=== PATIENT | male | born 1960 | race Caucasian/White ===

== ENCOUNTER 2021-01-27 19:42 | Inpatient (IN) | payer OTHER, MEDICAID, SELFPAY ==
[2021-01-27] VITALS (7 sets, daily range): BP systolic 73–95; BP diastolic 42–56; PULSE 77–83; RESP 16–22; TEMP 36.7–38.8; O2SAT 95–98; BMI 27.1
--- NOTE | ~2021-01-27 | XR_ITS ---
EXAMINATION: XR CALCANEUS, LEFT CLINICAL INFORMATION: Nonhealing COMPARISON: None TECHNIQUE: Lateral and axial views of the left calcaneus were obtained. FINDINGS: Extensive gas is present in the soft tissues and there appears to be an area of ulceration on the inferior heel with marked thinning of the skin and subcutaneous tissues. There is ill-defined loss of cortical bone present in at least one area present (see oropeza images). The overall area measures about 1.8 x 2.5 x 1.6 cm. Vascular calcifications are present. XR/XR calcaneus LT min 2V IMPRESSION: Soft tissue gas with area of ulceration and area of cortical bony destruction with large osteopenic region worrisome for osteomyelitis
--- NOTE | ~2021-01-27 | XR_ITS ---
EXAMINATION: XR CHEST CLINICAL INFORMATION: Hypertension COMPARISON: None TECHNIQUE: Frontal view of the chest was obtained. FINDINGS: Heart size upper limits of normal. No gross CHF. Mild streaky perihilar densities on the right with some more linear atelectasis in the left mid lung. No gross consolidations or pleural effusions. XR/XR chest 1V IMPRESSION: No acute intrathoracic disease. Some mild perihilar density on the right with left midlung atelectasis
--- NOTE | 2021-01-27 19:58 | ED_ITS ---
HPI - General Adult General Chief complaint: Altered Mental Status Stated complaint: fever Time Seen by Provider: 01/27/21 19:54 Source: patient and RN notes reviewed Mode of arrival: EMS Limitations: no limitations History of Present Illness HPI narrative: Patient diabetic with left heel chronic wound,, with history of atrial fibrillation on Eliquis cardiomyopathy hypertension [facility] for temperature of 101.4 degrees with increased pain in the left heel area where patient has chronic wound also feels nauseated week admitted [facility] on [facility]/23 had a wound VAC on his left heel today patient had debridement and wound VAC was removed. For last few days per nurse patient been more weak and lethargic and more confused always has chronic left leg swelling patient is not on any antibiotics Related Data Home Medications Medication Instructions Recorded Confirmed Lactobacillus rhamnosus GG 1 cap PO DAILY 01/28/21 01/28/21 [Culturelle] amiodarone 1 tab PO DAILY 01/28/21 01/28/21 apixaban [Eliquis] 5 mg PO BID 01/28/21 01/28/21 ascorbic acid (vitamin C) [Vitamin 500 mg PO DAILY 01/28/21 01/28/21 C] carvedilol 1 tab PO BID 01/28/21 01/28/21 carvedilol [Coreg] 3.125 mg PO BID 01/28/21 01/28/21 ferrous gluconate 324 mg PO DAILY 01/28/21 01/28/21 insulin glargine [Lantus Solostar 10 unit SUBCUT BEDTIME 01/28/21 01/28/21 U-100 Insulin] insulin lispro [Humalog U-100 4 unit SUBCUT TID 01/28/21 01/28/21 Insulin] magnesium oxide 400 mg PO DAILY 01/28/21 01/28/21 oxycodone 5 mg PO Q6H PRN 01/28/21 01/28/21 polyethylene glycol 3350 [Miralax] 17 g PO DAILY 01/28/21 01/28/21 Allergies Allergy/AdvReac Type Severity Reaction Status Date / Time No Known Allergies Allergy Verified 01/27/21 19:59 Review of Systems Review of Systems: Constitutional : No Weight loss, +Fever, No Chills ENT/Mouth : No sore throat, No Rhinorrhea Eyes: No Eye Pain, No Swelling Cardiovascular : No Chest Pain, no palpitations Respiratory : No Cough, No Sputum, no shortness of breath Gastrointestinal : + Nausea, No Vomiting, No Diarrhea, No abdominal Pain, no black stools Genitourinary : No Dysuria, No Urinary Frequency Musculoskeletal : No joint pain, No Myalgias, No Joint Swelling Skin : No Skin Lesions, No rash Neuro : + Weakness, No Numbness, No Dizziness, No Headache Psych : No Anxiety/Panic, No Depression Heme/Lymph: No Bruising, No Lymphadenopathy Endocrine : No Polyuria, No Polydipsia All other systems reviewed and are negative [facility] Past Medical History Medical History Atrial fibrillation Cardiomyopathy Chronic wound of extremity Diabetic foot ulcer Hyperlipidemia Hypertension Iron deficiency anemia MRSA pneumonia Pleural empyema Tourette disease Surgical History H/O chest tube placement History of amputation of right foot through metatarsal bone Social History Social History Alcohol intake: unknown Patient Tobacco Use Status: Tobacco use Unknown Use of substances other than those prescribed or required for medical reasons: Unknown Advance Directives: No Advance Directives Information Provided: Yes Physical Exam Vital Signs: Vital Signs: Last Vital Signs Temp 99 F 01/28/21 00:00 Pulse 87 01/28/21 00:14 Resp 14 01/28/21 00:00 BP 84/48 L 01/28/21 00:14 Pulse Ox 97 01/28/21 00:00 Body Mass Index 29.9 Appearance: Alert. Oriented X3. No acute distress. Eyes: PERRLA, No Nystagmus ENT: Pharynx normal. Oral Mucosa moist Neck: Normal inspection. Neck supple. CVS: Normal heart rate and rhythm. Pulses normal. Respiratory: No respiratory distress. Equal air entry bilateral, no wheezing/rales/rhonchi Abdomen: Soft and nontender. Bowel sounds are present, no mass palpable, no CVA tenderness Skin: Skin warm and dry. Normal skin color. Normal skin turgor. Extremities: Swollen left leg with warmth, healing wound at the heel of left foot with fresh gauze no pus discharge granulation tissue present, No calf tenderness Neuro: Oriented X 3. No motor deficit. No sensory deficit.No cerebellar signs , cranial nerves II-XII intact Medical Decision Making MDM Narrative Medical decision making narrative: Patient with chronic left heel necrotic cellulitis treated medically and surgical debridement [facility] for increased discharge and confusion workup showed leukocytosis at x-ray of the left heel showed erosion of the calcaneum bone likely patient has osteomyelitis previous x-ray with done on 10/23 was negative for bony erosion patient's blood pressure dropped to 84/50 received IV fluids more than 30 cc/kilogram broad- spectrum antibiotics vancomycin Zosyn started will give him mitral drain with blood pressure continues to be low will start him on dopamine drip and admit to ICU Lab Data Lab results reviewed: Yes I reviewed the patient's lab results. Result diagrams: 01/28/21 00:31 01/28/21 00:31 Labs: Lab Results 01/27/21 01/27/21 01/27/21 Range/Units 20:20 20:20 20:20 WBC 23.9 H (4.8-10.8) X10*3/uL RBC 2.89 L (4.60-5.80) X10*6/uL Hgb 7.6 L (14.0-18.0) g/dl Hct 22.2 L (42-52) % MCV 76.8 L (80-98) fL MCH 26.3 L (27.0-33.0) pg MCHC 34.2 (31.0-36.0) g/dl RDW 14.3 (11.0-16.0) % Plt Count 219 (160-400) X10*3/uL MPV 9.1 L (9.4-12.4) fL Immature Gran % (Auto) 1.5 H (0.0-0.4) % Neut % (Auto) 90.7 H (45-73) % Lymph % (Auto) 1.5 L (20-40) % [place] % (Auto) 6.2 (2-11) % Eos % (Auto) 0.0 (0-4) % Baso % (Auto) 0.1 (0-2) % Lymph # (Auto) 0.4 L (1.2-4.9) X10*3/uL [place] # (Auto) 1.5 H (0.1-1.2) X10*3/uL Eos # (Auto) 0.0 (0.0-0.4) X10*3/uL Baso # (Auto) 0.0 (0.0-0.2) X10*3/uL Abs Immat Gran (auto) 0.36 H (0.00-0.03) X10*3/uL Absolute Neuts (auto) 21.7 H (2.0-8.3) X10*3/uL Absolute Nucleated RBC 0.000 (0.0-0.012) X10*3/uL Nucleated RBC % (auto) 0.0 (0.0-0.2) /100WBC Smear Tech's Comments VERIFIED Sodium 121 L (135-145) mmol/L Potassium 5.0 (3.3-5.1) mmol/L Chloride 92 L (96-108) mmol/L Carbon Dioxide 20 L (22-29) mmol/L Anion Gap 14 (12-20) BUN 45 H (9-16) mg/dL Creatinine 1.94 H (0.5-1.4) mg/dL Estim Creat Clear Calc 45.5 Estimated GFR 36 POC Glucose (60-115) mg/dL Random Glucose 476 H* (60-115) mg/dL Lactic Acid 1.6 (0.5-2.0) mmol/L Calcium 7.8 L (8.4-10.2) mg/dL Total Bilirubin 0.8 (0.0-1.0) mg/dL Direct Bilirubin 0.6 H (0.0-0.5) mg/dL AST 16 (5-37) U/L ALT 17 (0-40) U/L Alkaline Phosphatase 345 H (39-117) U/L Total Protein 4.9 L (6.5-8.0) g/dL Albumin 2.6 L (3.5-5.0) g/dL Urine Color Urine Appearance Urine pH (5.0-8.0) Ur Specific [place] (1.005-1.025) Urine Protein (NEG-TRACE) MG/DL Urine Glucose (UA) (NEG) MG/DL Urine Ketones (NEG) MG/DL Urine Blood (NEG) Urine Nitrite (NEG) Ur Leukocyte Esterase (NEG) Urine RBC (0) /HPF Urine WBC (0-4) /HPF Ur Squamous Epith Cells /LPF Amorphous Sediment /LPF Urine Bacteria /LPF COVID-19 ([facility]) (Negative) COVID-19 Clin Com 01/27/21 01/27/21 01/27/21 Range/Units 20:20 21:28 22:41 WBC (4.8-10.8) X10*3/uL RBC (4.60-5.80) X10*6/uL Hgb (14.0-18.0) g/dl Hct (42-52) % MCV (80-98) fL MCH (27.0-33.0) pg MCHC (31.0-36.0) g/dl RDW (11.0-16.0) % Plt Count (160-400) X10*3/uL MPV (9.4-12.4) fL Immature Gran % (Auto) (0.0-0.4) % Neut % (Auto) (45-73) % Lymph % (Auto) (20-40) % [place] % (Auto) (2-11) % Eos % (Auto) (0-4) % Baso % (Auto) (0-2) % Lymph # (Auto) (1.2-4.9) X10*3/uL [place] # (Auto) (0.1-1.2) X10*3/uL Eos # (Auto) (0.0-0.4) X10*3/uL Baso # (Auto) (0.0-0.2) X10*3/uL Abs Immat Gran (auto) (0.00-0.03) X10*3/uL Absolute Neuts (auto) (2.0-8.3) X10*3/uL Absolute Nucleated RBC (0.0-0.012) X10*3/uL Nucleated RBC % (auto) (0.0-0.2) /100WBC Smear Tech's Comments Sodium (135-145) mmol/L Potassium (3.3-5.1) mmol/L Chloride (96-108) mmol/L Carbon Dioxide (22-29) mmol/L Anion Gap (12-20) BUN (9-16) mg/dL Creatinine (0.5-1.4) mg/dL Estim Creat Clear Calc Estimated GFR POC Glucose 371 H* (60-115) mg/dL Random Glucose (60-115) mg/dL Lactic Acid (0.5-2.0) mmol/L Calcium (8.4-10.2) mg/dL Total Bilirubin (0.0-1.0) mg/dL Direct Bilirubin (0.0-0.5) mg/dL AST (5-37) U/L ALT (0-40) U/L Alkaline Phosphatase (39-117) U/L Total Protein (6.5-8.0) g/dL Albumin (3.5-5.0) g/dL Urine Color YELLOW Urine Appearance CLEAR Urine pH 5.5 (5.0-8.0) Ur Specific [place] 1.020 (1.005-1.025) Urine Protein 1+ H (NEG-TRACE) MG/DL Urine Glucose (UA) >=1000 H (NEG) MG/DL Urine Ketones 5 (NEG) MG/DL Urine Blood TRACE (NEG) Urine Nitrite NEG (NEG) Ur Leukocyte Esterase NEG (NEG) Urine RBC 1-4 (0) /HPF Urine WBC 0 (0-4) /HPF Ur Squamous Epith Cells 2+ /LPF Amorphous Sediment 2+ /LPF Urine Bacteria 1+ /LPF COVID-19 ([facility]) Negative (Negative) COVID-19 Clin Com See Note Critical Care Time Critical Care Time Critical Care Time: Yes Total Critical Care Time: 60 Attestation: I spent 60 minutes of critical care, with interventions, assessments, speaking to patient, consultants, and family. Discharge Plan Discharge Clinical Impression: Acute osteomyelitis of left ankle or foot, Sepsis associated hypotension Diabetes mellitus Qualifiers: Diabetes mellitus type: type 2 Diabetes mellitus usp insulin use: with remote computer terminal operator use Diabetes mellitus complication status: with hyperglycemia Qualifie d Code(s): E11.65 - Type 2 diabetes mellitus with hyperglycemia Patient Disposition: Admitted As Inpatient Interventions: Admission Worksheet (ED) Last Done: 01/28/21 00:59
--- NOTE | 2021-01-27 20:01 | ECG_ITS ---
Test Reason : WEAKNESS Blood Pressure : / mmHG Vent. Rate : 079 BPM Atrial Rate : 079 BPM P-R Int : 194 ms QRS Dur : 086 ms QT Int : 374 ms P-R-T Axes : 041 -47 016 degrees QTc Int : 428 ms Normal sinus rhythm Left axis deviation Low voltage QRS Inferior infarct , age undetermined Possible Anterolateral infarct , age undetermined Abnormal ECG No previous ECGs available Referred By: Margarito Romano Electronically Signed By:MICHAEL SALAS
[2021-01-27 20:32] LABS: Basophils Percent Auto 0.1 % (0-2); Hematocrit 22.2 % (42-52); Hemoglobin 7.6 g/dl (14.0-18.0); Imm Gran Abs Auto 0.36 X10*3/uL (0.00-0.03); Imm Gran Pct Auto 1.5 % (0.0-0.4); Lymphocytes Absolute Auto 0.4 X10*3/uL (1.2-4.9); Lymphocytes Percent Auto 1.5 % (20-40); MANUAL DIFF FLAG SCAN; Mean Corpuscular HGB Conc 34.2 g/dl (31.0-36.0); Mean Corpuscular Hemoglobin 26.3 pg (27.0-33.0); Mean Corpuscular Volume 76.8 fL (80-98); Mean Platelet Volume 9.1 fL (9.4-12.4); Monocytes Absolute Auto 1.5 X10*3/uL (0.1-1.2); Monocytes Percent Auto 6.2 % (2-11); Neutrophils Absolute Auto 21.7 X10*3/uL (2.0-8.3); Neutrophils Percent Auto 90.7 % (45-73); Platelet Count 219 X10*3/uL (160-400); Red Blood Count 2.89 X10*6/uL (4.60-5.80); Red Cell Distribution Width 14.3 % (11.0-16.0); SCAN SMEAR FLAG 1; White Blood Count 23.9 X10*3/uL (4.8-10.8)
[2021-01-27] MEDS: vancomycin HCL 1,000 MG in 0.9 % Sodium Chloride 250 ML 270 MG IV (20:45)
[2021-01-27 20:46] LABS: Lactic Acid 1.6 mmol/L (0.5-2.0)
[2021-01-27 20:48] LABS: COVID-19 Test Negative (Negative)
[2021-01-27 20:57] LABS: SLIDE REVIEW VERIFIED
[2021-01-27 20:58] LABS: Glucose Random 476 mg/dL (60-115)
[2021-01-27 21:01] LABS: Alanine Aminotransferase 17 U/L (0-40); Albumin Level 2.6 g/dL (3.5-5.0); Alkaline Phosphatase 345 U/L (39-117); Anion Gap 14 (12-20); Aspartate Amino Transferase 16 U/L (5-37); Bilirubin Direct 0.6 mg/dL (0.0-0.5); Bilirubin Total 0.8 mg/dL (0.0-1.0); Blood Urea Nitrogen 45 mg/dL (9-16); Calcium 7.8 mg/dL (8.4-10.2); Carbon Dioxide 20 mmol/L (22-29); Chloride 92 mmol/L (96-108); Creatinine Clr Calc Pharmacy 45.5; Estimated Glomerular Filt Rate 36; Sodium 121 mmol/L (135-145); Total Protein 4.9 g/dL (6.5-8.0)
[2021-01-27] MEDS: Piperacillin Sodium/Tazobactam 3.375 GM in 0.9 % Sodium Chloride 50 ML IV (21:22)
[2021-01-27] MEDS: 0.9 % Sodium Chloride 1,000 ML 999 ML IVCONT ×3 (21:22→23:12)
[2021-01-27] MEDS: Insulin Lispro 100 UNIT/ML 3 ML VIAL 14 UNIT SUBCUT (21:30)
[2021-01-27 21:45] LABS: Glucose Urine UA >=1000 MG/DL (NEG); Leukocyte Esterase Urine NEG (NEG); Nitrite Urine NEG (NEG); PH 5.5 (5.0-8.0); Urine Blood TRACE (NEG); Urine Ketones 5 MG/DL (NEG); Urine Protein 1+ MG/DL (NEG-TRACE)
[2021-01-27 21:46] LABS: Appearance Urine CLEAR; Color Urine YELLOW
[2021-01-27 21:51] LABS: Amorphous Sediment Urine 2+ /LPF; Bacteria Urine 1+ /LPF; Squamous Epithelial Cell Urine 2+ /LPF; WBC Urine 0 /HPF (0-4)
[2021-01-27 22:48] LABS: Glucose, Whole Blood 371 mg/dL (60-115)
--- NOTE | 2021-01-27 22:58 | PC.NURSE ---
LATE ENTRY FOR 2239, FIRST CONTACT WITH PATIENT. ALERT, PALE, PERSISTENT LOW BP BROUGHT TO DOC ANWER'S ATTENTION. ADDITIONAL IV FLUIDS ORDRED. A FIB ON MONITOR ONCE APPLIED. WARM TO TOUCH, UNLABORED RESP.
[2021-01-27] MEDS: Midodrine HCl 10 MG TABLET PO (23:42)
[2021-01-28] VITALS (31 sets, daily range): BP systolic 84–123; BP diastolic 44–73; PULSE 75–134; RESP 11–21; TEMP 36.4–37.8; O2SAT 91–100; BMI 29.9; BMI 29.4
[2021-01-28] MEDS: DOPamine HCL/D5W 400 MG/250 ML PLAST..BAG 18.8 MG IVCONT (00:14)
--- NOTE | 2021-01-28 00:15 | PC.NURSE ---
CONFIRMING MEDICATION WITH JACE AGUILLON, PATIENTS WEIGHT IS 100.3 MEASURED PRIOR TO THE START OF MEDICATION. PATIENT ONLY HAS PERIPHERAL ACCESS AT THIS TIME ED PROVIDER IS AWARE, INSTRUCTED TO START MEDICATION.
--- NOTE | 2021-01-28 00:21 | PM.CCHP ---
History of Present Illness Date of Service: 01/28/21 Chief Complaint: hypotension Patient is a 60-year-old male with past medical history out of DM 2 on insulin, AFib on Eliquis, HTN, cardiomyopathy, tourette's syndrome (sniffs), iron def anemia, HLD and chronic left heel ulcer with osteomyelitis and chronic left leg swelling who was BIBA to the ED last night from [facility] when he was found to be febrile, increasing weakness and lethargy, nausea and increased pain in his left heel. According to ED the records, patient states he had left heel debridement today and the wound VAC was removed. According to records faxed from [facility], this ulcer began in Oct 2020. More records which were faxed to us show on 01/17/21, he was evaluated at the [facility] and was found to be hyponatremic at 128 and placed on a 1800cc fluid restriction for 1 week. On that same note, more labs were listed, they are as follows; WBC was 8.4, hemoglobin was 9.2 and hematocrit was 28.3, K 5.5, BUN 30, Cr 1.28, total bili 0.3, AST 7, ALT 9, Alk Phos 142, albumin 2.9, sed rate 32, c react 1.56, ALT Upon arrival in the ED, the patient's vital signs were notable for BP of 84/50, febrile at 102F, however his HR was 80, RR 16 and he was satting at 95% on room air. His labs are notable for a white count of 23.9, hemoglobin 7.6, hematocrit 22.2, Na 121, Cl 92, bicarb 20, BUN 45, Cr 1.94, glucose 476, lactic acid 1.6, Ca 7.8, direct bili 0.6, alk phos 345, total protein 4.9, albumin 2.6. UA showed 1+ protein and glucose. COVID negative. Left calcaneus x-ray showed soft tissue gas with area of ulceration an area of cortical bony destruction with large osteopenic region worrisome for osteomyelitis. Chest x-ray showed no acute process, some mild perihilar density on the right with left mid lung atelectasis. Showed normal sinus rhythm at 79 BPM. Blood cultures are pending. In the ED, the pt was given 3L NS, vanco, zosyn, 10mg midodrine, 14U humalog. Upon my exam, pt was visibly shaking from chills, states he is in pain and missed his oxy dose, last dose was 9 hours ago at 3pm. Notable for left heel ulcer and pedal edema left 2+, right 1+ as well as left leg swelling. Lungs CTA. Patient already placed on dopamine drip and systolic blood pressure is up to 98. Review of Systems Review of Systems: Yes all other systems are reviewed and are negative [facility] Past Medical History Medical History (Updated 01/28/21 @ 01:59 by Tsering Wang PA-C) Atrial fibrillation Cardiomyopathy Chronic wound of extremity Diabetic foot ulcer Hyperlipidemia Hypertension Iron deficiency anemia MRSA pneumonia Pleural empyema Tourette disease Surgical History Surgical History H/O chest tube placement History of amputation of right foot through metatarsal bone Social History Social History Alcohol intake: unknown Patient Tobacco Use Status: Tobacco use Unknown Use of substances other than those prescribed or required for medical reasons: Unknown Advance Directives: No Advance Directives Information Provided: Yes Meds Allergies Allergy/AdvReac Type Severity Reaction Status Date / Time No Known Allergies Allergy Verified 01/27/21 19:59 Active Medications: Current Medications Generic Name Dose Route Start Last Admin Trade Name Freq PRN Reason Stop Dose Admin Dopamine HCl/Dextrose 400 mg in 250 mls @ 0 mls/hr 01/27/21 23:45 01/28/21 00:14 IVCONT 5.53 mcg/kg/min .Q0M AKILA 18.8 mls/hr Administration Protocol Per Protocol Pharmacy Consult 1 each 01/27/21 20:21 Consult Rx Vancomycin Dosing MISCELLANE DAILY PRN Consult order Home Medications Medication Instructions Recorded Confirmed Last Taken Type Lactobacillus rhamnosus GG 1 cap PO DAILY 01/28/21 01/28/21 01/27/21 History [Culturelle] amiodarone 1 tab PO DAILY 01/28/21 01/28/21 01/27/21 History apixaban [Eliquis] 5 mg PO BID 01/28/21 01/28/21 01/27/21 History ascorbic acid (vitamin C) [Vitamin 500 mg PO DAILY 01/28/21 01/28/21 01/27/21 History C] carvedilol 1 tab PO BID 01/28/21 01/28/21 01/27/21 History carvedilol [Coreg] 3.125 mg PO BID 01/28/21 01/28/21 01/27/21 History ferrous gluconate 324 mg PO DAILY 01/28/21 01/28/21 01/28/21 History insulin glargine [Lantus Solostar 10 unit SUBCUT BEDTIME 01/28/21 01/28/21 01/28/21 History U-100 Insulin] insulin lispro [Humalog U-100 4 unit SUBCUT TID 01/28/21 01/28/21 Unknown History Insulin] magnesium oxide 400 mg PO DAILY 01/28/21 01/28/21 01/27/21 History oxycodone 5 mg PO Q6H PRN 01/28/21 01/28/21 01/27/21 History polyethylene glycol 3350 [Miralax] 17 g PO DAILY 01/28/21 01/28/21 01/27/21 History Physical Exam Vital Signs: Vital Signs: Last Vital Signs Temp 99 F 01/28/21 00:00 Pulse 87 01/28/21 00:14 Resp 14 01/28/21 00:00 BP 84/48 L 01/28/21 00:14 Pulse Ox 97 01/28/21 00:00 Body Mass Index 29.9 Const: General: cooperative, healthy appearing, comfortable, no acute distress and well developed Orientation/consciousness: patient oriented x3 Limitations: no limitations HENMT: Other: port wine stain on left eyelid and left forehead Head: Yes normal to inspection Eyes: General: appearance normal, both eyes and all related structures Neck: Neck: Yes normal visual inspection and Yes full ROM Resp: Effort & Inspection: normal respiratory effort and able to speak in complete sentences Auscultation: clear to auscultation bilaterally Cardio: Rate: regular rate Rhythm: regular rhythm Heart sounds: normal S1 and S2 GI: Inspection: Yes normal to inspection Palpation (GI): Soft to palpation and nontender Skin: General skin exam: no rashes or lesions noted Neuro: General: patient oriented x3 Extrem: General: Yes edema (left leg) and Yes pedal edema (Right 1+, left 2+) Right lower extremity: foot Left lower extremity: foot (Healing wound at base of heal, granulation tissue present) Ankle/foot/toe images: 1. status post amputation 1-5 Results Labs CBC and Chem 7: 01/28/21 00:31 01/28/21 00:31 Labs: Laboratory Results - last 24 hr 01/27/21 01/27/21 01/27/21 20:20 20:20 20:20 MCV 76.8 L MCH 26.3 L MCHC 34.2 RDW 14.3 Plt Count 219 MPV 9.1 L Immature Gran % (Auto) 1.5 H Neut % (Auto) 90.7 H Lymph % (Auto) 1.5 L [place] % (Auto) 6.2 Eos % (Auto) 0.0 Baso % (Auto) 0.1 Lymph # (Auto) 0.4 L [place] # (Auto) 1.5 H Eos # (Auto) 0.0 Baso # (Auto) 0.0 Abs Immat Gran (auto) 0.36 H Absolute Neuts (auto) 21.7 H Absolute Nucleated RBC 0.000 Nucleated RBC % (auto) 0.0 Smear Tech's Comments VERIFIED Anion Gap 14 Estim Creat Clear Calc 45.5 Estimated GFR 36 POC Glucose Random Glucose 476 H* Lactic Acid 1.6 Calcium 7.8 L Total Bilirubin 0.8 Direct Bilirubin 0.6 H AST 16 ALT 17 Alkaline Phosphatase 345 H Total Protein 4.9 L Albumin 2.6 L Urine Color Urine Appearance Urine pH Ur Specific [place] Urine Protein Urine Glucose (UA) Urine Ketones Urine Blood Urine Nitrite Ur Leukocyte Esterase Urine RBC Urine WBC Ur Squamous Epith Cells Amorphous Sediment Urine Bacteria COVID-19 ([facility]) COVID-19 Clin Com 01/27/21 01/27/21 01/27/21 20:20 21:28 22:41 MCV MCH MCHC RDW Plt Count MPV Immature Gran % (Auto) Neut % (Auto) Lymph % (Auto) [place] % (Auto) Eos % (Auto) Baso % (Auto) Lymph # (Auto) [place] # (Auto) Eos # (Auto) Baso # (Auto) Abs Immat Gran (auto) Absolute Neuts (auto) Absolute Nucleated RBC Nucleated RBC % (auto) Smear Tech's Comments Anion Gap Estim Creat Clear Calc Estimated GFR POC Glucose 371 H* Random Glucose Lactic Acid Calcium Total Bilirubin Direct Bilirubin AST ALT Alkaline Phosphatase Total Protein Albumin Urine Color YELLOW Urine Appearance CLEAR Urine pH 5.5 Ur Specific [place] 1.020 Urine Protein 1+ H Urine Glucose (UA) >=1000 H Urine Ketones 5 Urine Blood TRACE Urine Nitrite NEG Ur Leukocyte Esterase NEG Urine RBC 1-4 Urine WBC 0 Ur Squamous Epith Cells 2+ Amorphous Sediment 2+ Urine Bacteria 1+ COVID-19 ([facility]A) Negative COVID-19 Clin Com See Note Imaging Radiologist's Impressions: Impressions Calcaneus X-Ray 01/27/21 19:59 IMPRESSION: Soft tissue gas with area of ulceration and area of cortical bony destruction with large osteopenic region worrisome for osteomyelitis Chest X-Ray 01/27/21 20:01 IMPRESSION: No acute intrathoracic disease. Some mild perihilar density on the right with left midlung atelectasis Assessment and Plan (1) Acute osteomyelitis of left ankle or foot: Status: Acute wound consult placed, wound cx ordered,, pt on vanco and zosyn (2) Sepsis associated hypotension: Status: Acute dopamine drip, monitor vital signs (3) Diabetes mellitus: Qualifiers: Diabetes mellitus complication status: with hyperglycemia Diabetes mellitus ocean transportation intermediary insulin use: with senior care use Diabetes mellitus type: type 2 Qualified Code(s): E11.65 - Type 2 diabetes mellitus with hyperglycemia; Z79.4 - ferry terminal agent (current) use of insulin Status: Acute 10U Lantus @bedtime and Humalog, sliding scale. QIDACHS POC's ordered (4) Iron deficiency anemia: Status: Inactive monitor H&H, currently stable, patient is on oral iron at home (5) Hyponatremia: Status: Acute After 3L NS, Na went from 121 to 123, monitor
--- NOTE | 2021-01-28 00:22 | PC.NURSE ---
Primary nurse has not observed Afib since patient arrived in the ER as verified by EKG and bedside monitor. Patient is alert and oriented x 3 without chills and temperature of 99.0 rectal. Patient was not tachycardic upon arrival and continues to not be tachycardic with heart rate in the 80's the entire time. Dopamine administered per emar in peripheral IV and verified pump setting with Aubrey Romano prior to start of IV. Patient weight checked prior to start of medication. Patient weight 100.3 kg.
[2021-01-28 00:40] LABS: Venous Blood Gas Refer to POC result
[2021-01-28 00:41] LABS: VBG HCO3 21 mmol/L (22-26); VBG pCO2 38 mmHg; VBG pH 7.34 (7.32-7.43); VBG pO2 49 mmHg
[2021-01-28 00:42] LABS: Hematocrit 23.5 % (42-52); Hemoglobin 7.9 g/dl (14.0-18.0); Mean Corpuscular HGB Conc 33.6 g/dl (31.0-36.0); Mean Corpuscular Hemoglobin 25.9 pg (27.0-33.0); Platelet Count 219 X10*3/uL (160-400); Red Blood Count 3.05 X10*6/uL (4.60-5.80); Red Cell Distribution Width 14.3 % (11.0-16.0); White Blood Count 23.1 X10*3/uL (4.8-10.8)
[2021-01-28 00:46] LABS: Prothrombin Time 24.4 SEC (10.8-13.0)
[2021-01-28 00:48] LABS: Partial Thromboplastin Time 34.1 SEC (24.1-38.0)
--- NOTE | 2021-01-28 00:57 | PC.NURSE ---
This bond underwriter spoke with Rn at alf assigned to patient. Per her report the patient received Oxycodone at 1800 tonight prior to his arrival in ED.
[2021-01-28 01:08] LABS: B Type Natriuretic Peptide 1429 pg/mL (<100)
[2021-01-28 01:09] LABS: Alanine Aminotransferase 18 U/L (0-40); Albumin Level 2.8 g/dL (3.5-5.0); Alkaline Phosphatase 343 U/L (39-117); Anion Gap 13 (12-20); Aspartate Amino Transferase 15 U/L (5-37); Bilirubin Total 0.9 mg/dL (0.0-1.0); Blood Urea Nitrogen 45 mg/dL (9-16); Calcium 8.4 mg/dL (8.4-10.2); Carbon Dioxide 21 mmol/L (22-29); Chloride 94 mmol/L (96-108); Creatinine Clr Calc Pharmacy 45.7; Estimated Glomerular Filt Rate 32; Glucose Random 313 mg/dL (60-115); Magnesium 1.6 mg/dL (1.6-2.6); Phosphorus 2.1 mg/dL (2.7-4.5); Potassium 4.7 mmol/L (3.3-5.1); Sodium 123 mmol/L (135-145); Total Protein 5.8 g/dL (6.5-8.0)
[2021-01-28 01:10] LABS: Band Neutrophils Percent 9 % (3-5); Lymphocytes Absolute Manual 0.5 X10*3/uL (0.6-4.8); Lymphocytes Percent Manual 2 % (20-40); Metamyelocytes Absolute 0.2 X10*3/uL; Metamyelocytes Percent 1 %; Monocytes Absolute Manual 0.7 X10*3/uL (0.0-1.2); Monocytes Percent Manual 3 % (2-11); Neutrophils Absolute Manual 21.7 X10*3/uL (2.2-7.9); Neutrophils Percent Manual 85 % (45-73)
[2021-01-28 01:11] LABS: RBC Morphology NOTED
[2021-01-28 01:12] LABS: Dohle Bodies PRESENT; Hypochromasia 1+ (5-14) /OIF; Schistocytes 1+ (0-2) /OIF
[2021-01-28 01:15] LABS: Platelet Estimate NORMAL (NORMAL); Platelet Morphology Comment NORMAL
[2021-01-28 02:10] LABS: Glucose, Whole Blood 329 mg/dL (60-115)
[2021-01-28] MEDS: Heparin Sodium,Porcine 5,000 UNIT/ML VIAL 5000 UNIT SUBCUT (02:14)
[2021-01-28] MEDS: Insulin Lispro 100 UNIT/ML 3 ML VIAL SUBCUT ×5 (02:14→20:34)
[2021-01-28] MEDS: Acetaminophen 325 MG TABLET 650 MG PO (02:14)
[2021-01-28 05:22] LABS: VBG Base Excess -2.6 mmol/L; VBG HCO3 20 mmol/L (22-26); VBG pCO2 30 mmHg; VBG pH 7.43 (7.32-7.43); VBG pO2 83 mmHg
[2021-01-28 05:41] LABS: Glucose, Whole Blood 239 mg/dL (60-115)
[2021-01-28 05:55] LABS: Hematocrit 25.9 % (42-52); Hemoglobin 8.6 g/dl (14.0-18.0); Mean Corpuscular HGB Conc 33.2 g/dl (31.0-36.0); Mean Corpuscular Hemoglobin 25.9 pg (27.0-33.0); Platelet Count 249 X10*3/uL (160-400); Red Blood Count 3.32 X10*6/uL (4.60-5.80); Red Cell Distribution Width 14.4 % (11.0-16.0); White Blood Count 26.2 X10*3/uL (4.8-10.8)
[2021-01-28 06:02] LABS: INTERNATIONAL NORM RATIO 1.9 (0.9-1.1); Prothrombin Time 22.2 SEC (10.8-13.0)
[2021-01-28 06:05] LABS: Partial Thromboplastin Time 31.4 SEC (24.1-38.0)
[2021-01-28 06:17] LABS: Band Neutrophils Percent 12 % (3-5); Monocytes Absolute Manual 0.8 X10*3/uL (0.0-1.2); Monocytes Percent Manual 3 % (2-11); Neutrophils Absolute Manual 25.4 X10*3/uL (2.2-7.9); Neutrophils Percent Manual 85 % (45-73)
[2021-01-28 06:19] LABS: Acanthocytes 1+ (0-2) /OIF; Microcytosis 1+ (5-14) /OIF; Ovalocytes 1+ (5-14) /OIF; Platelet Estimate NORMAL (NORMAL); RBC Morphology NOTED
[2021-01-28 06:20] LABS: Dohle Bodies PRESENT; Platelet Morphology Comment NORMAL; Toxic Vacuolation PRESENT
[2021-01-28 06:25] LABS: B Type Natriuretic Peptide 1469 pg/mL (<100)
[2021-01-28 06:28] LABS: Alanine Aminotransferase 19 U/L (0-40); Albumin Level 2.8 g/dL (3.5-5.0); Alkaline Phosphatase 340 U/L (39-117); Anion Gap 15 (12-20); Aspartate Amino Transferase 15 U/L (5-37); Blood Urea Nitrogen 46 mg/dL (9-16); Calcium 8.4 mg/dL (8.4-10.2); Carbon Dioxide 20 mmol/L (22-29); Chloride 94 mmol/L (96-108); Creatinine Clr Calc Pharmacy 50.8; Estimated Glomerular Filt Rate 36; Glucose Random 250 mg/dL (60-115); Magnesium 1.5 mg/dL (1.6-2.6); Potassium 4.6 mmol/L (3.3-5.1); Sodium 124 mmol/L (135-145); Total Protein 5.4 g/dL (6.5-8.0)
[2021-01-28 06:51] LABS: Venous Blood Gas Refer to POC result
[2021-01-28 07:56] LABS: Glucose, Whole Blood 221 mg/dL (60-115)
[2021-01-28 11:56] LABS: Glucose, Whole Blood 248 mg/dL (60-115)
--- NOTE | 2021-01-28 12:00 | PM.CCPN ---
Subjective Subjective Date of Service: 01/28/21 Critical Care Time (minutes): 35 Comment: 60-year-old they broke resident type 2 diabetic with severe peripheral vascular disease and presents with probable osteomyelitis and clinically septic hypotension reversed to a degree with IV fluid repletion and was on dopamine as well but he was a new onset of atrial fibrillation with rapid ventricular response clearly exacerbated by the dopamine but he is completely asymptomatic no respiratory or chest discomfort issues looks very comfortable he is awake conversational currently blood pressure on the dopamine is about 95 systolic and his heart rate is 130-140 in atrial fib with elevated BNP and also had acute on chronic stage III renal failure which is slowly improving with just modest relief of his heart rate and the a inotropics support Bedside echo shows mild to moderate global hypokinesis consistent with congestive cardiomyopathy ejection fraction 40% approximately give her take no primary valve or pericardial disease and right heart appears normal Physical Exam Vital Signs: Vital Signs: Last Vital Signs Temp 99.2 F 01/28/21 11:00 Pulse 134 H 01/28/21 11:00 Resp 19 01/28/21 11:00 BP 96/46 L 01/28/21 11:00 Pulse Ox 98 01/28/21 11:00 Body Mass Index 29.4 Const: Other: Awake alert oriented and no distress I stop dopamine because it was driving the heart rate and blood pressure remained preserved at 96 because the heart rate dropped to 113 and he probably had better stroke volume Chest is clear by chest x-ray and exam Abdomen benign good bilateral carotid carotid upstrokes no bruits in the abdomen no organomegaly Objective Data Labs CBC & Chem 7: 01/28/21 05:12 01/28/21 05:12 Labs: Laboratory Results - last 24 hr 01/27/21 01/27/21 01/27/21 20:20 20:20 20:20 WBC 23.9 H RBC 2.89 L Hgb 7.6 L Hct 22.2 L MCV 76.8 L MCH 26.3 L MCHC 34.2 RDW 14.3 Plt Count 219 MPV 9.1 L Immature Gran % (Auto) 1.5 H Neut % (Auto) 90.7 H Lymph % (Auto) 1.5 L [place] % (Auto) 6.2 Eos % (Auto) 0.0 Baso % (Auto) 0.1 Lymph # (Auto) 0.4 L [place] # (Auto) 1.5 H Eos # (Auto) 0.0 Baso # (Auto) 0.0 Abs Immat Gran (auto) 0.36 H Absolute Neuts (auto) 21.7 H Absolute Nucleated RBC 0.000 Nucleated RBC % (auto) 0.0 Neutrophils % (Manual) Band Neutrophils % Lymphocytes % (Manual) Monocytes % (Manual) Metamyelocytes % Abs Neuts (Manual) Lymphocytes # (Manual) Monocytes # (Manual) Metamyelocytes # Toxic Vacuolation Dohle Bodies Platelet Estimate Plt Morphology Comment RBC Morphology Hypochromasia Microcytosis Ovalocytes Acanthocytes (Spur) Schistocytes Smear Tech's Comments VERIFIED PT INR APTT VBG pH VBG pCO2 VBG pO2 VBG HCO3 VBG O2 Saturation VBG Base Excess Sodium 121 L Potassium 5.0 Chloride 92 L Carbon Dioxide 20 L Anion Gap 14 BUN 45 H Creatinine 1.94 H Estim Creat Clear Calc 45.5 Estimated GFR 36 POC Glucose Random Glucose 476 H* Lactic Acid 1.6 Calcium 7.8 L Phosphorus Magnesium Total Bilirubin 0.8 Direct Bilirubin 0.6 H AST 16 ALT 17 Alkaline Phosphatase 345 H B-Natriuretic Peptide Total Protein 4.9 L Albumin 2.6 L Urine Color Urine Appearance Urine pH Ur Specific [place] Urine Protein Urine Glucose (UA) Urine Ketones Urine Blood Urine Nitrite Ur Leukocyte Esterase Urine RBC Urine WBC Ur Squamous Epith Cells Amorphous Sediment Urine Bacteria COVID-19 ([facility]) COVID-19 Clin Com 01/27/21 01/27/21 01/27/21 20:20 21:28 22:41 WBC RBC Hgb Hct MCV MCH MCHC RDW Plt Count MPV Immature Gran % (Auto) Neut % (Auto) Lymph % (Auto) [place] % (Auto) Eos % (Auto) Baso % (Auto) Lymph # (Auto) [place] # (Auto) Eos # (Auto) Baso # (Auto) Abs Immat Gran (auto) Absolute Neuts (auto) Absolute Nucleated RBC Nucleated RBC % (auto) Neutrophils % (Manual) Band Neutrophils % Lymphocytes % (Manual) Monocytes % (Manual) Metamyelocytes % Abs Neuts (Manual) Lymphocytes # (Manual) Monocytes # (Manual) Metamyelocytes # Toxic Vacuolation Dohle Bodies Platelet Estimate Plt Morphology Comment RBC Morphology Hypochromasia Microcytosis Ovalocytes Acanthocytes (Spur) Schistocytes Smear Tech's Comments PT INR APTT VBG pH VBG pCO2 VBG pO2 VBG HCO3 VBG O2 Saturation VBG Base Excess Sodium Potassium Chloride Carbon Dioxide Anion Gap BUN Creatinine Estim Creat Clear Calc Estimated GFR POC Glucose 371 H* Random Glucose Lactic Acid Calcium Phosphorus Magnesium Total Bilirubin Direct Bilirubin AST ALT Alkaline Phosphatase B-Natriuretic Peptide Total Protein Albumin Urine Color YELLOW Urine Appearance CLEAR Urine pH 5.5 Ur Specific [place] 1.020 Urine Protein 1+ H Urine Glucose (UA) >=1000 H Urine Ketones 5 Urine Blood TRACE Urine Nitrite NEG Ur Leukocyte Esterase NEG Urine RBC 1-4 Urine WBC 0 Ur Squamous Epith Cells 2+ Amorphous Sediment 2+ Urine Bacteria 1+ COVID-19 ([facility]) Negative COVID-19 Clin Com See Note 01/28/21 01/28/21 01/28/21 00:31 00:31 00:31 WBC 23.1 H RBC 3.05 L Hgb 7.9 L Hct 23.5 L MCV 77.0 L MCH 25.9 L MCHC 33.6 RDW 14.3 Plt Count 219 MPV 9.0 L Immature Gran % (Auto) Cancelled Neut % (Auto) Cancelled Lymph % (Auto) Cancelled [place] % (Auto) Cancelled Eos % (Auto) Cancelled Baso % (Auto) Cancelled Lymph # (Auto) Cancelled [place] # (Auto) Cancelled Eos # (Auto) Cancelled Baso # (Auto) Cancelled Abs Immat Gran (auto) Cancelled Absolute Neuts (auto) Cancelled Absolute Nucleated RBC 0.000 Nucleated RBC % (auto) 0.0 Neutrophils % (Manual) 85 H Band Neutrophils % 9 H Lymphocytes % (Manual) 2 L Monocytes % (Manual) 3 Metamyelocytes % 1 Abs Neuts (Manual) 21.7 H Lymphocytes # (Manual) 0.5 L Monocytes # (Manual) 0.7 Metamyelocytes # 0.2 Toxic Vacuolation Dohle Bodies PRESENT Platelet Estimate NORMAL Plt Morphology Comment NORMAL RBC Morphology NOTED Hypochromasia 1+ (5-14) Microcytosis Ovalocytes Acanthocytes (Spur) Schistocytes 1+ (0-2) Smear Tech's Comments PT 24.4 H INR 2.0 H APTT 34.1 VBG pH VBG pCO2 VBG pO2 VBG HCO3 VBG O2 Saturation VBG Base Excess Sodium 123 L Potassium 4.7 Chloride 94 L Carbon Dioxide 21 L Anion Gap 13 BUN 45 H Creatinine 2.16 H Estim Creat Clear Calc 45.7 Estimated GFR 32 POC Glucose Random Glucose 313 H Lactic Acid Calcium 8.4 D Phosphorus 2.1 L Magnesium 1.6 Total Bilirubin 0.9 Direct Bilirubin AST 15 ALT 18 Alkaline Phosphatase 343 H B-Natriuretic Peptide Total Protein 5.8 L Albumin 2.8 L Urine Color Urine Appearance Urine pH Ur Specific [place] Urine Protein Urine Glucose (UA) Urine Ketones Urine Blood Urine Nitrite Ur Leukocyte Esterase Urine RBC Urine WBC Ur Squamous Epith Cells Amorphous Sediment Urine Bacteria COVID-19 ([facility]) COVID-19 AppSheet Com 01/28/21 01/28/21 01/28/21 00:31 00:33 02:07 WBC RBC Hgb Hct MCV MCH MCHC RDW Plt Count MPV Immature Gran % (Auto) Neut % (Auto) Lymph % (Auto) [place] % (Auto) Eos % (Auto) Baso % (Auto) Lymph # (Auto) [place] # (Auto) Eos # (Auto) Baso # (Auto) Abs Immat Gran (auto) Absolute Neuts (auto) Absolute Nucleated RBC Nucleated RBC % (auto) Neutrophils % (Manual) Band Neutrophils % Lymphocytes % (Manual) Monocytes % (Manual) Metamyelocytes % Abs Neuts (Manual) Lymphocytes # (Manual) Monocytes # (Manual) Metamyelocytes # Toxic Vacuolation Dohle Bodies Platelet Estimate Plt Morphology Comment RBC Morphology Hypochromasia Microcytosis Ovalocytes Acanthocytes (Spur) Schistocytes Smear Tech's Comments PT INR APTT VBG pH 7.34 VBG pCO2 38 VBG pO2 49 VBG HCO3 21 L VBG O2 Saturation 76.0 VBG Base Excess -4.0 Sodium Potassium Chloride Carbon Dioxide Anion Gap BUN Creatinine Estim Creat Clear Calc Estimated GFR POC Glucose 329 H Random Glucose Lactic Acid Calcium Phosphorus Magnesium Total Bilirubin Direct Bilirubin AST ALT Alkaline Phosphatase B-Natriuretic Peptide 1429 H Total Protein Albumin Urine Color Urine Appearance Urine pH Ur Specific [place] Urine Protein Urine Glucose (UA) Urine Ketones Urine Blood Urine Nitrite Ur Leukocyte Esterase Urine RBC Urine WBC Ur Squamous Epith Cells Amorphous Sediment Urine Bacteria COVID-19 ([facility]) COVID-19 AppSheet Com 01/28/21 01/28/21 01/28/21 05:12 05:12 05:12 WBC 26.2 H RBC 3.32 L Hgb 8.6 L Hct 25.9 L MCV 78.0 L MCH 25.9 L MCHC 33.2 RDW 14.4 Plt Count 249 MPV 9.0 L Immature Gran % (Auto) Cancelled Neut % (Auto) Cancelled Lymph % (Auto) Cancelled [place] % (Auto) Cancelled Eos % (Auto) Cancelled Baso % (Auto) Cancelled Lymph # (Auto) Cancelled [place] # (Auto) Cancelled Eos # (Auto) Cancelled Baso # (Auto) Cancelled Abs Immat Gran (auto) Cancelled Absolute Neuts (auto) Cancelled Absolute Nucleated RBC 0.000 Nucleated RBC % (auto) 0.0 Neutrophils % (Manual) 85 H Band Neutrophils % 12 H Lymphocytes % (Manual) Monocytes % (Manual) 3 Metamyelocytes % Abs Neuts (Manual) 25.4 H Lymphocytes # (Manual) Monocytes # (Manual) 0.8 Metamyelocytes # Toxic Vacuolation PRESENT Dohle Bodies PRESENT Platelet Estimate NORMAL Plt Morphology Comment NORMAL RBC Morphology NOTED Hypochromasia Microcytosis 1+ (5-14) Ovalocytes 1+ (5-14) Acanthocytes (Spur) 1+ (0-2) Schistocytes Smear Tech's Comments PT 22.2 H INR 1.9 H APTT 31.4 VBG pH VBG pCO2 VBG pO2 VBG HCO3 VBG O2 Saturation VBG Base Excess Sodium 124 L Potassium 4.6 Chloride 94 L Carbon Dioxide 20 L Anion Gap 15 BUN 46 H Creatinine 1.94 H Estim Creat Clear Calc 50.8 Estimated GFR 36 POC Glucose Random Glucose 250 H Lactic Acid Calcium 8.4 Phosphorus 2.0 L Magnesium 1.5 L Total Bilirubin 1.0 Direct Bilirubin AST 15 ALT 19 Alkaline Phosphatase 340 H B-Natriuretic Peptide Total Protein 5.4 L Albumin 2.8 L Urine Color Urine Appearance Urine pH Ur Specific [place] Urine Protein Urine Glucose (UA) Urine Ketones Urine Blood Urine Nitrite Ur Leukocyte Esterase Urine RBC Urine WBC Ur Squamous Epith Cells Amorphous Sediment Urine Bacteria COVID-19 ([facility]) COVID-19 Clin Com 01/28/21 01/28/21 01/28/21 05:12 05:16 05:37 WBC RBC Hgb Hct MCV MCH MCHC RDW Plt Count MPV Immature Gran % (Auto) Neut % (Auto) Lymph % (Auto) [place] % (Auto) Eos % (Auto) Baso % (Auto) Lymph # (Auto) [place] # (Auto) Eos # (Auto) Baso # (Auto) Abs Immat Gran (auto) Absolute Neuts (auto) Absolute Nucleated RBC Nucleated RBC % (auto) Neutrophils % (Manual) Band Neutrophils % Lymphocytes % (Manual) Monocytes % (Manual) Metamyelocytes % Abs Neuts (Manual) Lymphocytes # (Manual) Monocytes # (Manual) Metamyelocytes # Toxic Vacuolation Dohle Bodies Platelet Estimate Plt Morphology Comment RBC Morphology Hypochromasia Microcytosis Ovalocytes Acanthocytes (Spur) Schistocytes Smear Tech's Comments PT INR APTT VBG pH 7.43 VBG pCO2 30 VBG pO2 83 VBG HCO3 20 L VBG O2 Saturation 96.0 VBG Base Excess -2.6 Sodium Potassium Chloride Carbon Dioxide Anion Gap BUN Creatinine Estim Creat Clear Calc Estimated GFR POC Glucose 239 H Random Glucose Lactic Acid Calcium Phosphorus Magnesium Total Bilirubin Direct Bilirubin AST ALT Alkaline Phosphatase B-Natriuretic Peptide 1469 H Total Protein Albumin Urine Color Urine Appearance Urine pH Ur Specific [place] Urine Protein Urine Glucose (UA) Urine Ketones Urine Blood Urine Nitrite Ur Leukocyte Esterase Urine RBC Urine WBC Ur Squamous Epith Cells Amorphous Sediment Urine Bacteria COVID-19 ([facility]) COVID-19 Clin Com 01/28/21 01/28/21 07:50 11:43 WBC RBC Hgb Hct MCV MCH MCHC RDW Plt Count MPV Immature Gran % (Auto) Neut % (Auto) Lymph % (Auto) [place] % (Auto) Eos % (Auto) Baso % (Auto) Lymph # (Auto) [place] # (Auto) Eos # (Auto) Baso # (Auto) Abs Immat Gran (auto) Absolute Neuts (auto) Absolute Nucleated RBC Nucleated RBC % (auto) Neutrophils % (Manual) Band Neutrophils % Lymphocytes % (Manual) Monocytes % (Manual) Metamyelocytes % Abs Neuts (Manual) Lymphocytes # (Manual) Monocytes # (Manual) Metamyelocytes # Toxic Vacuolation Dohle Bodies Platelet Estimate Plt Morphology Comment RBC Morphology Hypochromasia Microcytosis Ovalocytes Acanthocytes (Spur) Schistocytes Smear Tech's Comments PT INR APTT VBG pH VBG pCO2 VBG pO2 VBG HCO3 VBG O2 Saturation VBG Base Excess Sodium Potassium Chloride Carbon Dioxide Anion Gap BUN Creatinine Estim Creat Clear Calc Estimated GFR POC Glucose 221 H 248 H Random Glucose Lactic Acid Calcium Phosphorus Magnesium Total Bilirubin Direct Bilirubin AST ALT Alkaline Phosphatase B-Natriuretic Peptide Total Protein Albumin Urine Color Urine Appearance Urine pH Ur Specific [place] Urine Protein Urine Glucose (UA) Urine Ketones Urine Blood Urine Nitrite Ur Leukocyte Esterase Urine RBC Urine WBC Ur Squamous Epith Cells Amorphous Sediment Urine Bacteria COVID-19 ([facility]) COVID-19 Clin Com Progress Note: A&P Assessment and plan (1) Hyponatremia: Status: Acute (2) Acute osteomyelitis of left ankle or foot: Status: Acute (3) Sepsis associated hypotension: Status: Acute (4) Diabetes mellitus: Status: Acute (5) Atrial fibrillation with rapid ventricular response: Status: Acute (6) Congestive cardiomyopathy: Status: Acute Assessment and Plan: 60-year-old diabetic with ischemic limb and secondary osteomyelitis with sepsis hypotension currently off dopamine and he has a new onset of atrial fibrillation probably has been paroxysmal because he is on amiodarone and apixaban as an outpatient so apixaban will be maintained amiodarone currently being held digoxin is being used because of his congestive cardiomyopathy for additional heart rate control and will keep him on on Zosyn and vancomycin for his osteomyelitis
[2021-01-28] MEDS: Digoxin 0.5 MG/2 ML AMPUL 0.25 MG IVPUSH ×3 (12:13→16:08)
[2021-01-28] MEDS: Apixaban 5 MG TABLET PO (12:13)
[2021-01-28] MEDS: Magnesium Sulfate/D5W 1 GM/100 ML PIGGYBACK IV (12:16)
[2021-01-28] MEDS: Phenylephrine HCL 20 MG in 0.9 % Sodium Chloride 250 ML 37.16 MG IVCONT ×2 (12:28→19:29)
--- NOTE | 2021-01-28 15:10 | MHC.CM.PN ---
Male 60 DX Hypotension. He is in ICU for management of Low BP. He lives at [facility]. He states that he was independent with all functional mobilty. He states that he does not use an AD. The Patient has a non healing wound L foot. DP may be STR. The Pt will need a PT eval to assist with dispo. He may need assist w transport. CM will follow to assess for a change in needs at discharge.
[2021-01-28 16:55] LABS: Glucose, Whole Blood 277 mg/dL (60-115)
[2021-01-28] MEDS: oxyCODONE HCl Immed Release 5 MG TABLET PO ×2 (18:08→23:05)
[2021-01-28] MEDS: vancomycin HCL 1,250 MG in 0.9 % Sodium Chloride 250 ML 166.67 MG IV (19:16)
[2021-01-28 20:28] LABS: Glucose, Whole Blood 331 mg/dL (60-115)
[2021-01-28] MEDS: Insulin Glargine,Hum.rec.anlog 100 UNIT/ML 10 ML VIAL 10 UNIT SUBCUT (20:34)
[2021-01-29] VITALS (24 sets, daily range): BP systolic 97–116; BP diastolic 52–74; PULSE 84–111; RESP 15–24; TEMP 36.7–37.1; O2SAT 90–98; BMI 29.2
[2021-01-29] MEDS: Phenylephrine HCL 20 MG in 0.9 % Sodium Chloride 250 ML 55.74 MG IVCONT (01:36)
[2021-01-29 05:37] LABS: VBG HCO3 21 mmol/L (22-26); VBG pCO2 33 mmHg; VBG pO2 44 mmHg
[2021-01-29 05:39] LABS: Venous Blood Gas Refer to POC result
[2021-01-29] MEDS: Phenylephrine HCL 20 MG in 0.9 % Sodium Chloride 250 ML 37.16 MG IVCONT ×3 (06:03→18:24)
[2021-01-29 06:20] LABS: Anion Gap 14 (12-20); B Type Natriuretic Peptide 2020 pg/mL (<100); Blood Urea Nitrogen 49 mg/dL (9-16); Calcium 8.2 mg/dL (8.4-10.2); Carbon Dioxide 19 mmol/L (22-29); Chloride 96 mmol/L (96-108); Creatinine Clr Calc Pharmacy 70.3; Estimated Glomerular Filt Rate 52; Glucose Random 296 mg/dL (60-115); Magnesium 1.7 mg/dL (1.6-2.6); Phosphorus 2.3 mg/dL (2.7-4.5); Potassium 5.1 mmol/L (3.3-5.1); Sodium 124 mmol/L (135-145)
[2021-01-29 06:21] LABS: Alanine Aminotransferase 19 U/L (0-40); Albumin Level 2.6 g/dL (3.5-5.0); Alkaline Phosphatase 321 U/L (39-117); Aspartate Amino Transferase 17 U/L (5-37); Bilirubin Direct 1.1 mg/dL (0.0-0.5); Bilirubin Total 1.3 mg/dL (0.0-1.0); Total Protein 5.1 g/dL (6.5-8.0)
[2021-01-29 06:24] LABS: Hematocrit 25.2 % (42-52); Hemoglobin 8.6 g/dl (14.0-18.0); Mean Corpuscular HGB Conc 34.1 g/dl (31.0-36.0); Mean Corpuscular Hemoglobin 26.1 pg (27.0-33.0); Mean Corpuscular Volume 76.6 fL (80-98); Mean Platelet Volume 8.7 fL (9.4-12.4); Platelet Count 340 X10*3/uL (160-400); Red Blood Count 3.29 X10*6/uL (4.60-5.80); Red Cell Distribution Width 14.7 % (11.0-16.0)
[2021-01-29 06:30] LABS: White Blood Count 31.9 X10*3/uL (4.8-10.8)
[2021-01-29 06:31] LABS: INTERNATIONAL NORM RATIO 1.7 (0.9-1.1); Prothrombin Time 20.3 SEC (10.8-13.0)
[2021-01-29 06:34] LABS: Partial Thromboplastin Time 29.8 SEC (24.1-38.0)
[2021-01-29 06:43] LABS: Band Neutrophils Percent 10 % (3-5); Lymphocytes Absolute Manual 0.3 X10*3/uL (0.6-4.8); Lymphocytes Percent Manual 1 % (20-40); Monocytes Absolute Manual 0.6 X10*3/uL (0.0-1.2); Monocytes Percent Manual 2 % (2-11); Neutrophils Absolute Manual 30.9 X10*3/uL (2.2-7.9); Neutrophils Percent Manual 87 % (45-73)
[2021-01-29 06:45] LABS: Acanthocytes 1+ (0-2) /OIF; Dohle Bodies PRESENT; Ovalocytes 1+ (5-14) /OIF; Platelet Estimate NORMAL (NORMAL); Platelet Morphology Comment NORMAL; RBC Morphology NOTED
[2021-01-29 06:46] LABS: Toxic Granulation PRESENT
[2021-01-29 06:47] LABS: Toxic Vacuolation PRES
[2021-01-29 07:17] LABS: Glucose, Whole Blood 269 mg/dL (60-115)
[2021-01-29] MEDS: oxyCODONE HCl Immed Release 5 MG TABLET PO ×3 (07:39→22:43)
[2021-01-29] MEDS: Insulin Lispro 100 UNIT/ML 3 ML VIAL SUBCUT ×4 (07:42→20:51)
[2021-01-29] MEDS: Piperacillin Sodium/Tazobactam 4.5 GM in 0.9 % Sodium Chloride 100 ML IV ×4 (07:44→23:57)
[2021-01-29 11:31] LABS: Glucose, Whole Blood 288 mg/dL (60-115)
--- NOTE | 2021-01-29 16:34 | PM.CCPN ---
Subjective Subjective Date of Service: 01/29/21 Critical Care Time (minutes): 40 Comment: 60-year-old patient that they broke with insulin-dependent type 2 diabetes and severe peripheral vascular disease and has severe and is ischemic tissue loss with the cellulitis and underlying osteomyelitis most particularly of the right calcaneus presented septic with new onset atrial fibrillation and rapid ventricular response so he was fluid resuscitated antibiotics were started clinically doing very much better able to eat on insulin coverage and his heart rate is controlled Physical Exam Vital Signs: Vital Signs: Last Vital Signs Temp 98.7 F 01/29/21 11:00 Pulse 90 01/29/21 16:00 Resp 22 H 01/29/21 16:00 BP 110/70 01/29/21 16:00 Pulse Ox 93 01/29/21 16:00 Body Mass Index 29.2 Const: Other: Awake alert nonfocal Cardiovascular he has an underlying congestive cardiomyopathy with 40% ejection fraction which is diffuse probably nonischemic but no evidence of a diastolic CHF Lungs clear with no adventitious sounds Abdomen benign soft good bowel sounds no organomegaly Objective Data Labs CBC & Chem 7: 01/29/21 05:26 01/29/21 05:26 Labs: Laboratory Results - last 24 hr 01/28/21 01/28/21 01/29/21 16:34 20:23 05:25 WBC RBC Hgb Hct MCV MCH MCHC RDW Plt Count MPV Immature Gran % (Auto) Neut % (Auto) Lymph % (Auto) [place] % (Auto) Eos % (Auto) Baso % (Auto) Lymph # (Auto) [place] # (Auto) Eos # (Auto) Baso # (Auto) Abs Immat Gran (auto) Absolute Neuts (auto) Absolute Nucleated RBC Nucleated RBC % (auto) Neutrophils % (Manual) Band Neutrophils % Lymphocytes % (Manual) Monocytes % (Manual) Abs Neuts (Manual) Lymphocytes # (Manual) Monocytes # (Manual) Toxic Granulation Toxic Vacuolation Dohle Bodies Platelet Estimate Plt Morphology Comment RBC Morphology Ovalocytes Acanthocytes (Spur) PT INR APTT VBG pH VBG pCO2 VBG pO2 VBG HCO3 VBG O2 Saturation VBG Base Excess Sodium Potassium Chloride Carbon Dioxide Anion Gap BUN Creatinine Estim Creat Clear Calc Estimated GFR POC Glucose 277 H 331 H Random Glucose Calcium Phosphorus Magnesium Total Bilirubin 1.3 H Direct Bilirubin 1.1 H AST 17 ALT 19 Alkaline Phosphatase 321 H B-Natriuretic Peptide Total Protein 5.1 L Albumin 2.6 L 01/29/21 01/29/21 01/29/21 05:26 05:26 05:26 WBC 31.9 H* RBC 3.29 L Hgb 8.6 L Hct 25.2 L MCV 76.6 L MCH 26.1 L MCHC 34.1 RDW 14.7 Plt Count 340 D MPV 8.7 L Immature Gran % (Auto) Cancelled Neut % (Auto) Cancelled Lymph % (Auto) Cancelled [place] % (Auto) Cancelled Eos % (Auto) Cancelled Baso % (Auto) Cancelled Lymph # (Auto) Cancelled [place] # (Auto) Cancelled Eos # (Auto) Cancelled Baso # (Auto) Cancelled Abs Immat Gran (auto) Cancelled Absolute Neuts (auto) Cancelled Absolute Nucleated RBC 0.000 Nucleated RBC % (auto) 0.0 Neutrophils % (Manual) 87 H Band Neutrophils % 10 H Lymphocytes % (Manual) 1 L Monocytes % (Manual) 2 Abs Neuts (Manual) 30.9 H Lymphocytes # (Manual) 0.3 L Monocytes # (Manual) 0.6 Toxic Granulation PRESENT Toxic Vacuolation PRES Dohle Bodies PRESENT Platelet Estimate NORMAL Plt Morphology Comment NORMAL RBC Morphology NOTED Ovalocytes 1+ (5-14) Acanthocytes (Spur) 1+ (0-2) PT 20.3 H INR 1.7 H APTT 29.8 VBG pH VBG pCO2 VBG pO2 VBG HCO3 VBG O2 Saturation VBG Base Excess Sodium 124 L Potassium 5.1 Chloride 96 Carbon Dioxide 19 L Anion Gap 14 BUN 49 H Creatinine 1.39 Estim Creat Clear Calc 70.3 Estimated GFR 52 POC Glucose Random Glucose 296 H Calcium 8.2 L Phosphorus 2.3 L Magnesium 1.7 Total Bilirubin Direct Bilirubin AST ALT Alkaline Phosphatase B-Natriuretic Peptide Total Protein Albumin 01/29/21 01/29/21 01/29/21 05:26 05:30 07:14 WBC RBC Hgb Hct MCV MCH MCHC RDW Plt Count MPV Immature Gran % (Auto) Neut % (Auto) Lymph % (Auto) [place] % (Auto) Eos % (Auto) Baso % (Auto) Lymph # (Auto) [place] # (Auto) Eos # (Auto) Baso # (Auto) Abs Immat Gran (auto) Absolute Neuts (auto) Absolute Nucleated RBC Nucleated RBC % (auto) Neutrophils % (Manual) Band Neutrophils % Lymphocytes % (Manual) Monocytes % (Manual) Abs Neuts (Manual) Lymphocytes # (Manual) Monocytes # (Manual) Toxic Granulation Toxic Vacuolation Dohle Bodies Platelet Estimate Plt Morphology Comment RBC Morphology Ovalocytes Acanthocytes (Spur) PT INR APTT VBG pH 7.40 VBG pCO2 33 VBG pO2 44 VBG HCO3 21 L VBG O2 Saturation 73.0 VBG Base Excess -3.0 Sodium Potassium Chloride Carbon Dioxide Anion Gap BUN Creatinine Estim Creat Clear Calc Estimated GFR POC Glucose 269 H Random Glucose Calcium Phosphorus Magnesium Total Bilirubin Direct Bilirubin AST ALT Alkaline Phosphatase B-Natriuretic Peptide 2020 H Total Protein Albumin 01/29/21 11:28 WBC RBC Hgb Hct MCV MCH MCHC RDW Plt Count MPV Immature Gran % (Auto) Neut % (Auto) Lymph % (Auto) [place] % (Auto) Eos % (Auto) Baso % (Auto) Lymph # (Auto) [place] # (Auto) Eos # (Auto) Baso # (Auto) Abs Immat Gran (auto) Absolute Neuts (auto) Absolute Nucleated RBC Nucleated RBC % (auto) Neutrophils % (Manual) Band Neutrophils % Lymphocytes % (Manual) Monocytes % (Manual) Abs Neuts (Manual) Lymphocytes # (Manual) Monocytes # (Manual) Toxic Granulation Toxic Vacuolation Dohle Bodies Platelet Estimate Plt Morphology Comment RBC Morphology Ovalocytes Acanthocytes (Spur) PT INR APTT VBG pH VBG pCO2 VBG pO2 VBG HCO3 VBG O2 Saturation VBG Base Excess Sodium Potassium Chloride Carbon Dioxide Anion Gap BUN Creatinine Estim Creat Clear Calc Estimated GFR POC Glucose 288 H Random Glucose Calcium Phosphorus Magnesium Total Bilirubin Direct Bilirubin AST ALT Alkaline Phosphatase B-Natriuretic Peptide Total Protein Albumin Microbiology Microbiology Results: Microbiology 01/27/21 20:32 Blood - Venous Blood Culture - Preliminary No growth after 24 hours. 01/27/21 20:19 Blood - Venous Blood Culture - Preliminary No growth after 24 hours. Progress Note: A&P Assessment and plan (1) Congestive cardiomyopathy: Status: Acute (2) Atrial fibrillation with rapid ventricular response: Status: Acute (3) Hyponatremia: Status: Acute (4) Acute osteomyelitis of left ankle or foot: Status: Acute (5) Sepsis associated hypotension: Status: Acute (6) Diabetes mellitus: Status: Acute (7) Acute renal failure: Status: Acute Assessment and Plan: All told he is well compensated will probably just need a surgical consult related to the osteomyelitis and wound debridement
[2021-01-29 16:36] LABS: Glucose, Whole Blood 280 mg/dL (60-115)
[2021-01-29 19:58] LABS: Vancomycin Random 11.6 mcg/mL (15-20)
[2021-01-29 20:42] LABS: Glucose, Whole Blood 255 mg/dL (60-115)
[2021-01-29] MEDS: Apixaban 5 MG TABLET PO (20:51)
[2021-01-29] MEDS: Furosemide 20 MG/2 ML VIAL IVPUSH (20:51)
[2021-01-29] MEDS: vancomycin HCL 1,500 MG in 0.9 % Sodium Chloride 500 ML 333.33 MG IV (20:52)
[2021-01-29] MEDS: Insulin Glargine,Hum.rec.anlog 100 UNIT/ML 10 ML VIAL 10 UNIT SUBCUT (20:52)
[2021-01-29] MEDS: Phenylephrine HCL 20 MG in 0.9 % Sodium Chloride 250 ML 29.73 MG IVCONT (23:52)
[2021-01-30] VITALS (33 sets, daily range): BP systolic 82–114; BP diastolic 49–97; PULSE 80–96; RESP 12–24; TEMP 36.3–37.7; O2SAT 93–100; BMI 29.5
--- NOTE | 2021-01-30 03:37 | PC.NURSE ---
CARE ASSUMED 23:15...AWAKE...ALERT...ORIENTED X3...VAGUE RESPONSES AT TIMES...ATRIAL FIB CONTROLLED HR...NEOSYNEPHRINE DRIP 0.5 MCG/KG/MIN AT HS...WEANED TO 0.3 MCG/KG/MIN OVERNIGHT...PAEZ YELLOW URINE...DRESSING LEFT ANKLE/FOOT DRY/INTACT..RESTFUL..NAPPING INTERMITTANTLY OVERNIGHT
[2021-01-30 05:24] LABS: VBG Base Excess -3.2 mmol/L; VBG HCO3 20 mmol/L (22-26); VBG pCO2 32 mmHg; VBG pH 7.41 (7.32-7.43); VBG pO2 113 mmHg
[2021-01-30 05:28] LABS: Venous Blood Gas Refer to POC result
[2021-01-30 05:32] LABS: INTERNATIONAL NORM RATIO 1.7 (0.9-1.1); Prothrombin Time 20.2 SEC (10.8-13.0)
[2021-01-30 05:32] LABS: Hematocrit 23.7 % (42-52); Hemoglobin 7.8 g/dl (14.0-18.0); Mean Corpuscular HGB Conc 32.9 g/dl (31.0-36.0); Mean Corpuscular Hemoglobin 25.4 pg (27.0-33.0); Mean Corpuscular Volume 77.2 fL (80-98); Mean Platelet Volume 8.6 fL (9.4-12.4); Platelet Count 260 X10*3/uL (160-400); Red Blood Count 3.07 X10*6/uL (4.60-5.80); Red Cell Distribution Width 15.1 % (11.0-16.0); White Blood Count 20.6 X10*3/uL (4.8-10.8)
[2021-01-30 05:35] LABS: Partial Thromboplastin Time 28.7 SEC (24.1-38.0)
[2021-01-30 05:48] LABS: Alanine Aminotransferase 19 U/L (0-40); Albumin Level 2.3 g/dL (3.5-5.0); Alkaline Phosphatase 304 U/L (39-117); Anion Gap 13 (12-20); Aspartate Amino Transferase 17 U/L (5-37); Bilirubin Direct 1.2 mg/dL (0.0-0.5); Bilirubin Total 1.5 mg/dL (0.0-1.0); Blood Urea Nitrogen 54 mg/dL (9-16); Calcium 8.1 mg/dL (8.4-10.2); Carbon Dioxide 20 mmol/L (22-29); Chloride 100 mmol/L (96-108); Creatinine Clr Calc Pharmacy 69.7; Estimated Glomerular Filt Rate 52; Glucose Random 251 mg/dL (60-115); Magnesium 1.8 mg/dL (1.6-2.6); Phosphorus 2.4 mg/dL (2.7-4.5); Potassium 4.5 mmol/L (3.3-5.1); Sodium 128 mmol/L (135-145); Total Protein 4.6 g/dL (6.5-8.0)
[2021-01-30 05:51] LABS: B Type Natriuretic Peptide 1667 pg/mL (<100)
[2021-01-30 05:56] LABS: Band Neutrophils Percent 9 % (3-5); Lymphocytes Absolute Manual 0.2 X10*3/uL (0.6-4.8); Lymphocytes Percent Manual 1 % (20-40); Monocytes Absolute Manual 0.4 X10*3/uL (0.0-1.2); Monocytes Percent Manual 2 % (2-11); Neutrophils Percent Manual 88 % (45-73)
[2021-01-30 05:57] LABS: Acanthocytes 1+ (0-2) /OIF; Dohle Bodies PRESENT; Microcytosis 1+ (5-14) /OIF; Ovalocytes 1+ (5-14) /OIF; Platelet Estimate NORMAL (NORMAL); Platelet Morphology Comment NORMAL; RBC Morphology NOTED; Schistocytes 1+ (0-2) /OIF; Toxic Vacuolation PRESENT
[2021-01-30] MEDS: Piperacillin Sodium/Tazobactam 4.5 GM in 0.9 % Sodium Chloride 100 ML IV ×3 (07:49→18:22)
[2021-01-30] MEDS: Insulin Lispro 100 UNIT/ML 3 ML VIAL SUBCUT ×4 (07:49→20:24)
[2021-01-30] MEDS: Apixaban 5 MG TABLET PO (08:00)
[2021-01-30] MEDS: Phenylephrine HCL 20 MG in 0.9 % Sodium Chloride 250 ML 22.29 MG IVCONT (08:33)
[2021-01-30] MEDS: Albumin Human 25 % 100 ML IV ×3 (08:42→20:18)
[2021-01-30] MEDS: Magnesium Sulfate/H2O 2 GM/50 ML PIGGYBACK IV (08:50)
[2021-01-30] MEDS: Sodium,Potassium Phosphates POWD.PACK 2 PACKET PO (08:53)
[2021-01-30 08:59] LABS: Glucose, Whole Blood 237 mg/dL (60-115)
--- NOTE | 2021-01-30 09:38 | P.CONGS_ITS ---
History of Present Illness Consult details Consult date: 01/30/21 Requesting physician: Laurent Alvarado Narrative: Jelani Beltran is a 60-year-old male patient with a history of type 2 diabetes, atrial fibrillation, hypertension, cardiomyopathy, to read syndrome with a chronic left heel ulcer an apparent osteomyelitis found admitted on 01/27/2021 with weakness, lethargy, nausea, and increased pain in the left heel. He was found to have an elevated WBC of 23.9 and foot x-rays were suggestive of osteomyelitis of the calcaneus. He was found to be hypotensive with a blood pressure of 84/50 and febrile to a temperature of a 102 degrees F. he was admitted to the ICU after fluid hydration. He was started on Vanco and Zosyn. He remains on Eliquis. Today the patient is noted to have increased swelling of the left calf with an area of skin necrosis just above the Achilles tendon region. The patient's WBC has improved to 20 K. Surgical consultation is requested for evaluation of the skin necrosis and possible debridement. Patient denies pain in the foot or leg. Review of Systems Review of Systems: Yes Unobtainable due to mental status PMFSH Past Medical History Medical History Atrial fibrillation Cardiomyopathy Chronic wound of extremity Diabetic foot ulcer Hyperlipidemia Hypertension Iron deficiency anemia MRSA pneumonia Pleural empyema Tourette disease Surgical History Surgical History H/O chest tube placement History of amputation of right foot through metatarsal bone Social History Social History Housing: Halfway Do you presently have visiting nurse or other home services: No Alcohol intake: unknown Patient Tobacco Use Status: Never used Tobacco Smoked in Last 30 Days: No Patient Interested in Nicotine Replacement: No Patient Given Instructions on How to Stop Smoking: No Second Hand Smoke Exposure: No Use of substances other than those prescribed or required for medical reasons: No Currently Displaying Signs/Symptoms of Drug Intoxication Withdrawal: No Have you been hit, kicked, punched, or otherwise hurt by someone within the past year? If so, by whom?: No Do you feel safe in your current relationship?: No Is there a partner from a previous relationship who is making you feel unsafe n ow?: No Advance Directives: No Advance Directives Information Provided: Yes Do you have thoughts of harming others: None Do you have a plan to hurt others: No Plan service: No Current occupational status: disabled Meds Allergies Allergy/AdvReac Type Severity Reaction Status Date / Time No Known Allergies Allergy Verified 01/27/21 19:59 Active Medications: Current Medications Generic Name Dose Route Start Last Admin Trade Name Freq PRN Reason Stop Dose Admin Apixaban 5 mg 01/29/21 21:00 01/30/21 08:00 Apixaban 5 Mg Tablet PO 5 mg BID AKILA Administration Phenylephrine HCl 20 mg/ 252 mls @ 0 mls/hr 01/28/21 11:15 01/30/21 09:32 Sodium Chloride IVCONT 0.2 mcg/kg/min .Q0M AKILA 14.86 mls/hr Titration Protocol Per Protocol Piperacillin Sod/Tazobactam 100 mls @ 200 mls/hr 01/29/21 07:00 01/30/21 08:26 Sod 4.5 gm/ Sodium Chloride IV Infused Q6H AKILA Infusion Vancomycin HCl 1,500 mg/ 500 mls @ 333.333 mls/hr 01/29/21 20:45 01/29/21 22:34 Sodium Chloride IV Infused Q24H AKILA Infusion Albumin Human 100 mls @ 100 mls/hr 01/30/21 09:00 01/30/21 08:42 Kedbumin 25 % IV 01/31/21 03:59 100 mls/hr Q6H AKILA Administration Magnesium Sulfate 2 gm in 50 mls @ 25 mls/hr 01/30/21 09:00 01/30/21 08:50 IV 01/30/21 10:59 25 mls/hr ONCE ONE Administration Furosemide 200 mg/ Sodium 100 mls @ 1 mls/hr 01/30/21 09:00 Chloride IVCONT .Q24H AKILA 2 MG/HR Insulin Glargine 10 unit 01/28/21 21:00 01/29/21 20:52 Insulin Glargine,Hum.Rec.Anlog 100 Unit/Ml 10 Ml Vial SUBCUT 10 unit BEDTIME AKILA Administration Insulin Human Lispro 0 unit 01/28/21 07:30 01/30/21 07:49 Insulin Lispro 100 Unit/Ml 3 Ml Vial SUBCUT 4 unit QIDACHS AKILA Administration Protocol Oxycodone HCl 5 mg 01/28/21 00:38 01/29/21 22:43 Oxycodone Hcl Immed Release 5 Mg Tablet PO 5 mg Q6H PRN Administration Pain, Moderate (Pain Scale 4-6 Pharmacy Consult 1 each 01/27/21 20:21 Consult Rx Vancomycin Dosing MISCELLANE DAILY PRN Consult order Home Medications Medication Instructions Recorded Confirmed Last Taken Type Lactobacillus rhamnosus GG 1 cap PO DAILY 01/28/21 01/28/21 01/27/21 History [Culturelle] amiodarone 1 tab PO DAILY 01/28/21 01/28/21 01/27/21 History apixaban [Eliquis] 5 mg PO BID 01/28/21 01/28/21 01/27/21 History ascorbic acid (vitamin C) [Vitamin 500 mg PO DAILY 01/28/21 01/28/21 01/27/21 History C] carvedilol 1 tab PO BID 01/28/21 01/28/21 01/27/21 History carvedilol [Coreg] 3.125 mg PO BID 01/28/21 01/28/21 01/27/21 History ferrous gluconate 324 mg PO DAILY 01/28/21 01/28/21 01/28/21 History insulin glargine [Lantus Solostar 10 unit SUBCUT BEDTIME 01/28/21 01/28/21 01/28/21 History U-100 Insulin] insulin lispro [Humalog U-100 4 unit SUBCUT TID 01/28/21 01/28/21 Unknown History Insulin] magnesium oxide 400 mg PO DAILY 01/28/21 01/28/21 01/27/21 History oxycodone 5 mg PO Q6H PRN 01/28/21 01/28/21 01/27/21 History polyethylene glycol 3350 [Miralax] 17 g PO DAILY 01/28/21 01/28/21 01/27/21 History Physical Exam Vital Signs: Vital Signs: Last Vital Signs Temp 98.5 F 01/30/21 07:00 Pulse 95 01/30/21 07:00 Resp 20 01/30/21 07:00 BP 104/55 L 01/30/21 07:00 Pulse Ox 98 01/30/21 07:00 Body Mass Index 29.5 Const: General: ill appearing, lethargic, poor hygiene and tired appearing Nutritional Appearance: average body habitus Orientation/consciousness: oriented to person and lethargic HENMT: Head: Yes normocephalic and Yes atraumatic Ears: hearing grossly normal bilaterally Teeth and gingiva: poor dentition Neck: Neck: Yes no JVD Resp: Effort & Inspection: normal respiratory effort, no stridor and not tac hypneic Cardio: Other: Irregular rate and rhythm GI: Inspection: Yes normal to inspection Neuro: General: oriented to person Extrem: Other: Area of skin necrosis located in the right leg measuring approximately 2 cm just above the Achilles tendon at the level of the medial malleolus. Pitting edema is noted throughout the calf on the left side. This was opened with a scissor after obtaining informed consent. A pocket of purulence fluid was identified with foul-smelling fluid. The incision was opened more superiorly with the scissor and a large pocket extending up the posterior calf was identified with more follow-up smelling fluid. Attempt was made a irrigation with peroxide. Patient will require operative incision and drainage. Results Labs Result diagrams: 01/30/21 05:12 01/30/21 05:12 Labs: Abnormal lab results 01/29/21 01/29/21 01/29/21 Range/Units 11:28 16:32 19:07 WBC (4.8-10.8) X10*3/uL RBC (4.60-5.80) X10*6/uL Hgb (14.0-18.0) g/dl Hct (42-52) % MCV (80-98) fL MCH (27.0-33.0) pg MPV (9.4-12.4) fL Neutrophils % (Manual) (45-73) % Band Neutrophils % (3-5) % Lymphocytes % (Manual) (20-40) % Abs Neuts (Manual) (2.2-7.9) X10*3/uL Lymphocytes # (Manual) (0.6-4.8) X10*3/uL PT (10.8-13.0) SEC INR (0.9-1.1) VBG HCO3 (22-26) mmol/L Sodium (135-145) mmol/L Carbon Dioxide (22-29) mmol/L BUN (9-16) mg/dL POC Glucose 288 H 280 H (60-115) mg/dL Random Glucose (60-115) mg/dL Calcium (8.4-10.2) mg/dL Phosphorus (2.7-4.5) mg/dL Total Bilirubin (0.0-1.0) mg/dL Direct Bilirubin (0.0-0.5) mg/dL Alkaline Phosphatase (39-117) U/L B-Natriuretic Peptide (<100) pg/mL Total Protein (6.5-8.0) g/dL Albumin (3.5-5.0) g/dL Random Vancomycin 11.6 L (15-20) mcg/mL 01/29/21 01/30/21 01/30/21 Range/Units 20:39 05:11 05:12 WBC 20.6 H (4.8-10.8) X10*3/uL RBC 3.07 L (4.60-5.80) X10*6/uL Hgb 7.8 L (14.0-18.0) g/dl Hct 23.7 L (42-52) % MCV 77.2 L (80-98) fL MCH 25.4 L (27.0-33.0) pg MPV 8.6 L (9.4-12.4) fL Neutrophils % (Manual) 88 H (45-73) % Band Neutrophils % 9 H (3-5) % Lymphocytes % (Manual) 1 L (20-40) % Abs Neuts (Manual) 20.0 H (2.2-7.9) X10*3/uL Lymphocytes # (Manual) 0.2 L (0.6-4.8) X10*3/uL PT 20.2 H (10.8-13.0) SEC INR 1.7 H (0.9-1.1) VBG HCO3 (22-26) mmol/L Sodium (135-145) mmol/L Carbon Dioxide (22-29) mmol/L BUN (9-16) mg/dL POC Glucose 255 H (60-115) mg/dL Random Glucose (60-115) mg/dL Calcium (8.4-10.2) mg/dL Phosphorus (2.7-4.5) mg/dL Total Bilirubin (0.0-1.0) mg/dL Direct Bilirubin (0.0-0.5) mg/dL Alkaline Phosphatase (39-117) U/L B-Natriuretic Peptide (<100) pg/mL Total Protein (6.5-8.0) g/dL Albumin (3.5-5.0) g/dL Random Vancomycin (15-20) mcg/mL 01/30/21 01/30/21 01/30/21 Range/Units 05:12 05:12 05:18 WBC (4.8-10.8) X10*3/uL RBC (4.60-5.80) X10*6/uL Hgb (14.0-18.0) g/dl Hct (42-52) % MCV (80-98) fL MCH (27.0-33.0) pg MPV (9.4-12.4) fL Neutrophils % (Manual) (45-73) % Band Neutrophils % (3-5) % Lymphocytes % (Manual) (20-40) % Abs Neuts (Manual) (2.2-7.9) X10*3/uL Lymphocytes # (Manual) (0.6-4.8) X10*3/uL PT (10.8-13.0) SEC INR (0.9-1.1) VBG HCO3 20 L (22-26) mmol/L Sodium 128 L (135-145) mmol/L Carbon Dioxide 20 L (22-29) mmol/L BUN 54 H (9-16) mg/dL POC Glucose (60-115) mg/dL Random Glucose 251 H (60-115) mg/dL Calcium 8.1 L (8.4-10.2) mg/dL Phosphorus 2.4 L (2.7-4.5) mg/dL Total Bilirubin 1.5 H (0.0-1.0) mg/dL Direct Bilirubin 1.2 H (0.0-0.5) mg/dL Alkaline Phosphatase 304 H (39-117) U/L B-Natriuretic Peptide 1667 H (<100) pg/mL Total Protein 4.6 L (6.5-8.0) g/dL Albumin 2.3 L (3.5-5.0) g/dL Random Vancomycin (15-20) mcg/mL 01/30/21 Range/Units 07:43 WBC (4.8-10.8) X10*3/uL RBC (4.60-5.80) X10*6/uL Hgb (14.0-18.0) g/dl Hct (42-52) % MCV (80-98) fL MCH (27.0-33.0) pg MPV (9.4-12.4) fL Neutrophils % (Manual) (45-73) % Band Neutrophils % (3-5) % Lymphocytes % (Manual) (20-40) % Abs Neuts (Manual) (2.2-7.9) X10*3/uL Lymphocytes # (Manual) (0.6-4.8) X10*3/uL PT (10.8-13.0) SEC INR (0.9-1.1) VBG HCO3 (22-26) mmol/L Sodium (135-145) mmol/L Carbon Dioxide (22-29) mmol/L BUN (9-16) mg/dL POC Glucose 237 H (60-115) mg/dL Random Glucose (60-115) mg/dL Calcium (8.4-10.2) mg/dL Phosphorus (2.7-4.5) mg/dL Total Bilirubin (0.0-1.0) mg/dL Direct Bilirubin (0.0-0.5) mg/dL Alkaline Phosphatase (39-117) U/L B-Natriuretic Peptide (<100) pg/mL Total Protein (6.5-8.0) g/dL Albumin (3.5-5.0) g/dL Random Vancomycin (15-20) mcg/mL Short CBC 01/30/21 Range/Units 05:12 WBC 20.6 H (4.8-10.8) X10*3/uL Hgb 7.8 L (14.0-18.0) g/dl Hct 23.7 L (42-52) % Plt Count 260 (160-400) X10*3/uL BMP 01/30/21 05:12 Sodium 128 L Potassium 4.5 Chloride 100 Carbon Dioxide 20 L BUN 54 H Creatinine 1.40 Calcium 8.1 L Liver Function 01/30/21 Range/Units 05:12 Total Bilirubin 1.5 H (0.0-1.0) mg/dL Direct Bilirubin 1.2 H (0.0-0.5) mg/dL AST 17 (5-37) U/L ALT 19 (0-40) U/L Alkaline Phosphatase 304 H (39-117) U/L Albumin 2.3 L (3.5-5.0) g/dL Urine 01/27/21 Range/Units 21:28 Urine Color YELLOW Urine Appearance CLEAR Urine pH 5.5 (5.0-8.0) Ur Specific [place] 1.020 (1.005-1.025) Urine Protein 1+ H (NEG-TRACE) MG/DL Urine Glucose (UA) >=1000 H (NEG) MG/DL All other labs normal. Assessment and Plan (1) Necrotizing fasciitis: Status: Acute Patient presents with a history of sepsis and past history of diabetes mellitus, atrial fibrillation on anticoagulation, hypertension, and cardiomyopathy now presenting with a necrotic ulcer in the left leg overlying of large abscess collection possibly related to necrotizing fasciitis. Patient will require further incision and drainage of this large abscess collection with washout and debridement as necessary. I reviewed the procedure, risks, and alternatives, with the patient and he consents to the surgery. He has been added onto the operative schedule for today. Procedures Date of Service Date of Service: 01/30/21
[2021-01-30] MEDS: Furosemide 200 MG in 0.9 % Sodium Chloride 80 ML IVCONT (09:42)
--- NOTE | 2021-01-30 10:16 | HO.ANESPROP2 ---
HPI - Anesthesia Eval Consult details Narrative: 60 yo male patient for I&D left lower extremity for necrotizing fasciitis PMFSH Active Problems Active Problems: All Active Problems (Updated 01/30/21 @ 09:58 by Sunil Leong MD) Necrotizing fasciitis (Acute) Acute renal failure (Acute) Congestive cardiomyopathy (Acute) Atrial fibrillation with rapid ventricular response (Acute) Hyponatremia (Acute) Acute osteomyelitis of left ankle or foot (Acute) Sepsis associated hypotension (Acute) Diabetes mellitus (Acute) Past Medical History Medical History (Updated 01/30/21 @ 12:41 by Vanna Pascual) Atrial fibrillation Cardiomyopathy Chronic wound of extremity Diabetic foot ulcer Hyperlipidemia Hypertension Iron deficiency anemia MRSA pneumonia Pleural empyema Tourette disease Family History Family history of problems with anesthesia: No Surgical History Surgical History H/O chest tube placement History of amputation of right foot through metatarsal bone History of Problems with Anesthesia: No Social History Social History Housing: Half-Way Do you presently have visiting nurse or other home services: No Alcohol intake: unknown Patient Tobacco Use Status: Never used Tobacco Smoked in Last 30 Days: No Patient Interested in Nicotine Replacement: No Patient Given Instructions on How to Stop Smoking: No Second Hand Smoke Exposure: No Use of substances other than those prescribed or required for medical reasons: No Currently Displaying Signs/Symptoms of Drug Intoxication Withdrawal: No Have you been hit, kicked, punched, or otherwise hurt by someone within the past year? If so, by whom?: No Do you feel safe in your current relationship?: No Is there a partner from a previous relationship who is making you feel unsafe now?: No Advance Directives: No Advance Directives Information Provided: Yes Do you have thoughts of harming others: None Do you have a plan to hurt others: No Plan service: No Current occupational status: disabled Meds Allergies Allergy/AdvReac Type Severity Reaction Status Date / Time No Known Allergies Allergy Verified 01/27/21 19:59 Active Medications: Current Medications Generic Name Dose Route Start Last Admin Trade Name Freq PRN Reason Stop Dose Admin Apixaban 5 mg 01/29/21 21:00 01/30/21 08:00 Apixaban 5 Mg Tablet PO 5 mg BID AKILA Administration Phenylephrine HCl 20 mg/ 252 mls @ 0 mls/hr 01/28/21 11:15 01/30/21 09:44 Sodium Chloride IVCONT 0.1 mcg/kg/min .Q0M AKILA 7.43 mls/hr Titration Protocol Per Protocol Piperacillin Sod/Tazobactam 100 mls @ 200 mls/hr 01/29/21 07:00 01/30/21 08:26 Sod 4.5 gm/ Sodium Chloride IV Infused Q6H AKILA Infusion Vancomycin HCl 1,500 mg/ 500 mls @ 333.333 mls/hr 01/29/21 20:45 01/29/21 22:34 Sodium Chloride IV Infused Q24H AKILA Infusion Albumin Human 100 mls @ 100 mls/hr 01/30/21 09:00 01/30/21 09:39 Kedbumin 25 % IV 01/31/21 03:59 Infused Q6H AKILA Infusion Magnesium Sulfate 2 gm in 50 mls @ 25 mls/hr 01/30/21 09:00 01/30/21 08:50 IV 01/30/21 10:59 25 mls/hr ONCE ONE Administration Furosemide 200 mg/ Sodium 100 mls @ 1 mls/hr 01/30/21 09:00 01/30/21 09:42 Chloride IVCONT 2 mg/hr .Q24H AKILA 1 mls/hr Administration 2 MG/HR Cefazolin Sodium/Dextrose 2 gm in 50 mls @ 100 mls/hr 01/30/21 10:03 Ancef IV 01/30/21 10:32 PREOP ONE Insulin Glargine 10 unit 01/28/21 21:00 01/29/21 20:52 Insulin Glargine,Hum.Rec.Anlog 100 Unit/Ml 10 Ml Vial SUBCUT 10 unit BEDTIME AKILA Administration Insulin Human Lispro 0 unit 01/28/21 07:30 01/30/21 07:49 Insulin Lispro 100 Unit/Ml 3 Ml Vial SUBCUT 4 unit QIDACHS AKILA Administration Protocol Oxycodone HCl 5 mg 01/28/21 00:38 01/29/21 22:43 Oxycodone Hcl Immed Release 5 Mg Tablet PO 5 mg Q6H PRN Administration Pain, Moderate (Pain Scale 4-6 Pharmacy Consult 1 each 01/27/21 20:21 Consult Rx Vancomycin Dosing MISCELLANE DAILY PRN Consult order Home Medications Medication Instructions Recorded Confirmed Last Taken Type Lactobacillus rhamnosus GG 1 cap PO DAILY 01/28/21 01/28/21 01/27/21 History [Culturelle] amiodarone 1 tab PO DAILY 01/28/21 01/28/21 01/27/21 History apixaban [Eliquis] 5 mg PO BID 01/28/21 01/28/21 01/27/21 History ascorbic acid (vitamin C) [Vitamin 500 mg PO DAILY 01/28/21 01/28/21 01/27/21 History C] carvedilol 1 tab PO BID 01/28/21 01/28/21 01/27/21 History carvedilol [Coreg] 3.125 mg PO BID 01/28/21 01/28/21 01/27/21 History ferrous gluconate 324 mg PO DAILY 01/28/21 01/28/21 01/28/21 History insulin glargine [Lantus Solostar 10 unit SUBCUT BEDTIME 01/28/21 01/28/21 01/28/21 History U-100 Insulin] insulin lispro [Humalog U-100 4 unit SUBCUT TID 01/28/21 01/28/21 Unknown History Insulin] magnesium oxide 400 mg PO DAILY 01/28/21 01/28/21 01/27/21 History oxycodone 5 mg PO Q6H PRN 01/28/21 01/28/21 01/27/21 History polyethylene glycol 3350 [Miralax] 17 g PO DAILY 01/28/21 01/28/21 01/27/21 History Exam Exam Date and Time: January 30, 2021 1016 Height,Weight and Vital Signs: Height 6 ft Weight 98.8 kg Last Vital Signs Temp 98.6 F 01/30/21 10:00 Pulse 80 01/30/21 10:00 Resp 20 01/30/21 10:00 BP 95/62 01/30/21 10:00 Pulse Ox 97 01/30/21 10:00 Pertinent Lab Results Pertinent Lab Results: Laboratory Tests 01/27/21 01/27/21 01/27/21 20:20 20:20 20:20 WBC 23.9 H RBC 2.89 L Hgb 7.6 L Hct 22.2 L MCV 76.8 L MCH 26.3 L MCHC 34.2 RDW 14.3 Plt Count 219 MPV 9.1 L Immature Gran % (Auto) 1.5 H Neut % (Auto) 90.7 H Lymph % (Auto) 1.5 L Bradford % (Auto) 6.2 Eos % (Auto) 0.0 Baso % (Auto) 0.1 Lymph # (Auto) 0.4 L Bradford # (Auto) 1.5 H Eos # (Auto) 0.0 Baso # (Auto) 0.0 Abs Immat Gran (auto) 0.36 H Absolute Neuts (auto) 21.7 H Absolute Nucleated RBC 0.000 Nucleated RBC % (auto) 0.0 Neutrophils % (Manual) Band Neutrophils % Lymphocytes % (Manual) Monocytes % (Manual) Metamyelocytes % Abs Neuts (Manual) Lymphocytes # (Manual) Monocytes # (Manual) Metamyelocytes # Toxic Granulation Toxic Vacuolation Dohle Bodies Platelet Estimate Plt Morphology Comment RBC Morphology Hypochromasia Microcytosis Ovalocytes Acanthocytes (Spur) Schistocytes Smear Tech's Comments VERIFIED PT INR APTT VBG pH VBG pCO2 VBG pO2 VBG HCO3 VBG O2 Saturation VBG Base Excess Sodium 121 L Potassium 5.0 Chloride 92 L Carbon Dioxide 20 L Anion Gap 14 BUN 45 H Creatinine 1.94 H Estim Creat Clear Calc 45.5 Estimated GFR 36 POC Glucose Random Glucose 476 H* Lactic Acid 1.6 Calcium 7.8 L Phosphorus Magnesium Total Bilirubin 0.8 Direct Bilirubin 0.6 H AST 16 ALT 17 Alkaline Phosphatase 345 H B-Natriuretic Peptide Total Protein 4.9 L Albumin 2.6 L Urine Color Urine Appearance Urine pH Ur Specific Lequire Urine Protein Urine Glucose (UA) Urine Ketones Urine Blood Urine Nitrite Ur Leukocyte Esterase Urine RBC Urine WBC Ur Squamous Epith Cells Amorphous Sediment Urine Bacteria Random Vancomycin COVID-19 (KINGA) COVID-19 Clin Com 01/27/21 01/27/21 01/27/21 20:20 21:28 22:41 WBC RBC Hgb Hct MCV MCH MCHC RDW Plt Count MPV Immature Gran % (Auto) Neut % (Auto) Lymph % (Auto) Bradford % (Auto) Eos % (Auto) Baso % (Auto) Lymph # (Auto) Bradford # (Auto) Eos # (Auto) Baso # (Auto) Abs Immat Gran (auto) Absolute Neuts (auto) Absolute Nucleated RBC Nucleated RBC % (auto) Neutrophils % (Manual) Band Neutrophils % Lymphocytes % (Manual) Monocytes % (Manual) Metamyelocytes % Abs Neuts (Manual) Lymphocytes # (Manual) Monocytes # (Manual) Metamyelocytes # Toxic Granulation Toxic Vacuolation Dohle Bodies Platelet Estimate Plt Morphology Comment RBC Morphology Hypochromasia Microcytosis Ovalocytes Acanthocytes (Spur) Schistocytes Smear Tech's Comments PT INR APTT VBG pH VBG pCO2 VBG pO2 VBG HCO3 VBG O2 Saturation VBG Base Excess Sodium Potassium Chloride Carbon Dioxide Anion Gap BUN Creatinine Estim Creat Clear Calc Estimated GFR POC Glucose 371 H* Random Glucose Lactic Acid Calcium Phosphorus Magnesium Total Bilirubin Direct Bilirubin AST ALT Alkaline Phosphatase B-Natriuretic Peptide Total Protein Albumin Urine Color YELLOW Urine Appearance CLEAR Urine pH 5.5 Ur Specific Lequire 1.020 Urine Protein 1+ H Urine Glucose (UA) >=1000 H Urine Ketones 5 Urine Blood TRACE Urine Nitrite NEG Ur Leukocyte Esterase NEG Urine RBC 1-4 Urine WBC 0 Ur Squamous Epith Cells 2+ Amorphous Sediment 2+ Urine Bacteria 1+ Random Vancomycin COVID-19 (KINGA) Negative COVID-19 Clin Com See Note 01/28/21 01/28/21 01/28/21 00:31 00:31 00:31 WBC 23.1 H RBC 3.05 L Hgb 7.9 L Hct 23.5 L MCV 77.0 L MCH 25.9 L MCHC 33.6 RDW 14.3 Plt Count 219 MPV 9.0 L Immature Gran % (Auto) Cancelled Neut % (Auto) Cancelled Lymph % (Auto) Cancelled Bradford % (Auto) Cancelled Eos % (Auto) Cancelled Baso % (Auto) Cancelled Lymph # (Auto) Cancelled Bradford # (Auto) Cancelled Eos # (Auto) Cancelled Baso # (Auto) Cancelled Abs Immat Gran (auto) Cancelled Absolute Neuts (auto) Cancelled Absolute Nucleated RBC 0.000 Nucleated RBC % (auto) 0.0 Neutrophils % (Manual) 85 H Band Neutrophils % 9 H Lymphocytes % (Manual) 2 L Monocytes % (Manual) 3 Metamyelocytes % 1 Abs Neuts (Manual) 21.7 H Lymphocytes # (Manual) 0.5 L Monocytes # (Manual) 0.7 Metamyelocytes # 0.2 Toxic Granulation Toxic Vacuolation Dohle Bodies PRESENT Platelet Estimate NORMAL Plt Morphology Comment NORMAL RBC Morphology NOTED Hypochromasia 1+ (5-14) Microcytosis Ovalocytes Acanthocytes (Spur) Schistocytes 1+ (0-2) Smear Tech's Comments PT 24.4 H INR 2.0 H APTT 34.1 VBG pH VBG pCO2 VBG pO2 VBG HCO3 VBG O2 Saturation VBG Base Excess Sodium 123 L Potassium 4.7 Chloride 94 L Carbon Dioxide 21 L Anion Gap 13 BUN 45 H Creatinine 2.16 H Estim Creat Clear Calc 45.7 Estimated GFR 32 POC Glucose Random Glucose 313 H Lactic Acid Calcium 8.4 D Phosphorus 2.1 L Magnesium 1.6 Total Bilirubin 0.9 Direct Bilirubin AST 15 ALT 18 Alkaline Phosphatase 343 H B-Natriuretic Peptide Total Protein 5.8 L Albumin 2.8 L Urine Color Urine Appearance Urine pH Ur Specific [place] Urine Protein Urine Glucose (UA) Urine Ketones Urine Blood Urine Nitrite Ur Leukocyte Esterase Urine RBC Urine WBC Ur Squamous Epith Cells Amorphous Sediment Urine Bacteria Random Vancomycin COVID-19 ([facility]A) COVID-19 Clin Com 01/28/21 01/28/21 01/28/21 00:31 00:33 02:07 WBC RBC Hgb Hct MCV MCH MCHC RDW Plt Count MPV Immature Gran % (Auto) Neut % (Auto) Lymph % (Auto) Bradford % (Auto) Eos % (Auto) Baso % (Auto) Lymph # (Auto) Bradford # (Auto) Eos # (Auto) Baso # (Auto) Abs Immat Gran (auto) Absolute Neuts (auto) Absolute Nucleated RBC Nucleated RBC % (auto) Neutrophils % (Manual) Band Neutrophils % Lymphocytes % (Manual) Monocytes % (Manual) Metamyelocytes % Abs Neuts (Manual) Lymphocytes # (Manual) Monocytes # (Manual) Metamyelocytes # Toxic Granulation Toxic Vacuolation Dohle Bodies Platelet Estimate Plt Morphology Comment RBC Morphology Hypochromasia Microcytosis Ovalocytes Acanthocytes (Spur) Schistocytes Smear Tech's Comments PT INR APTT VBG pH 7.34 VBG pCO2 38 VBG pO2 49 VBG HCO3 21 L VBG O2 Saturation 76.0 VBG Base Excess -4.0 Sodium Potassium Chloride Carbon Dioxide Anion Gap BUN Creatinine Estim Creat Clear Calc Estimated GFR POC Glucose 329 H Random Glucose Lactic Acid Calcium Phosphorus Magnesium Total Bilirubin Direct Bilirubin AST ALT Alkaline Phosphatase B-Natriuretic Peptide 1429 H Total Protein Albumin Urine Color Urine Appearance Urine pH Ur Specific Lequire Urine Protein Urine Glucose (UA) Urine Ketones Urine Blood Urine Nitrite Ur Leukocyte Esterase Urine RBC Urine WBC Ur Squamous Epith Cells Amorphous Sediment Urine Bacteria Random Vancomycin COVID-19 (KINGA) COVID-19 Clin Com 01/28/21 01/28/21 01/28/21 05:12 05:12 05:12 WBC 26.2 H RBC 3.32 L Hgb 8.6 L Hct 25.9 L MCV 78.0 L MCH 25.9 L MCHC 33.2 RDW 14.4 Plt Count 249 MPV 9.0 L Immature Gran % (Auto) Cancelled Neut % (Auto) Cancelled Lymph % (Auto) Cancelled Bradford % (Auto) Cancelled Eos % (Auto) Cancelled Baso % (Auto) Cancelled Lymph # (Auto) Cancelled Bradford # (Auto) Cancelled Eos # (Auto) Cancelled Baso # (Auto) Cancelled Abs Immat Gran (auto) Cancelled Absolute Neuts (auto) Cancelled Absolute Nucleated RBC 0.000 Nucleated RBC % (auto) 0.0 Neutrophils % (Manual) 85 H Band Neutrophils % 12 H Lymphocytes % (Manual) Monocytes % (Manual) 3 Metamyelocytes % Abs Neuts (Manual) 25.4 H Lymphocytes # (Manual) Monocytes # (Manual) 0.8 Metamyelocytes # Toxic Granulation Toxic Vacuolation PRESENT Dohle Bodies PRESENT Platelet Estimate NORMAL Plt Morphology Comment NORMAL RBC Morphology NOTED Hypochromasia Microcytosis 1+ (5-14) Ovalocytes 1+ (5-14) Acanthocytes (Spur) 1+ (0-2) Schistocytes Smear Tech's Comments PT 22.2 H INR 1.9 H APTT 31.4 VBG pH VBG pCO2 VBG pO2 VBG HCO3 VBG O2 Saturation VBG Base Excess Sodium 124 L Potassium 4.6 Chloride 94 L Carbon Dioxide 20 L Anion Gap 15 BUN 46 H Creatinine 1.94 H Estim Creat Clear Calc 50.8 Estimated GFR 36 POC Glucose Random Glucose 250 H Lactic Acid Calcium 8.4 Phosphorus 2.0 L Magnesium 1.5 L Total Bilirubin 1.0 Direct Bilirubin AST 15 ALT 19 Alkaline Phosphatase 340 H B-Natriuretic Peptide Total Protein 5.4 L Albumin 2.8 L Urine Color Urine Appearance Urine pH Ur Specific [place] Urine Protein Urine Glucose (UA) Urine Ketones Urine Blood Urine Nitrite Ur Leukocyte Esterase Urine RBC Urine WBC Ur Squamous Epith Cells Amorphous Sediment Urine Bacteria Random Vancomycin COVID-19 ([facility]A) COVID-19 Clin Com 01/28/21 01/28/21 01/28/21 05:12 05:16 05:37 WBC RBC Hgb Hct MCV MCH MCHC RDW Plt Count MPV Immature Gran % (Auto) Neut % (Auto) Lymph % (Auto) Bradford % (Auto) Eos % (Auto) Baso % (Auto) Lymph # (Auto) Bradford # (Auto) Eos # (Auto) Baso # (Auto) Abs Immat Gran (auto) Absolute Neuts (auto) Absolute Nucleated RBC Nucleated RBC % (auto) Neutrophils % (Manual) Band Neutrophils % Lymphocytes % (Manual) Monocytes % (Manual) Metamyelocytes % Abs Neuts (Manual) Lymphocytes # (Manual) Monocytes # (Manual) Metamyelocytes # Toxic Granulation Toxic Vacuolation Dohle Bodies Platelet Estimate Plt Morphology Comment RBC Morphology Hypochromasia Microcytosis Ovalocytes Acanthocytes (Spur) Schistocytes Smear Tech's Comments PT INR APTT VBG pH 7.43 VBG pCO2 30 VBG pO2 83 VBG HCO3 20 L VBG O2 Saturation 96.0 VBG Base Excess -2.6 Sodium Potassium Chloride Carbon Dioxide Anion Gap BUN Creatinine Estim Creat Clear Calc Estimated GFR POC Glucose 239 H Random Glucose Lactic Acid Calcium Phosphorus Magnesium Total Bilirubin Direct Bilirubin AST ALT Alkaline Phosphatase B-Natriuretic Peptide 1469 H Total Protein Albumin Urine Color Urine Appearance Urine pH Ur Specific Lequire Urine Protein Urine Glucose (UA) Urine Ketones Urine Blood Urine Nitrite Ur Leukocyte Esterase Urine RBC Urine WBC Ur Squamous Epith Cells Amorphous Sediment Urine Bacteria Random Vancomycin COVID-19 (KINGA) COVID-19 [employer] 01/28/21 01/28/21 01/28/21 07:50 11:43 16:34 WBC RBC Hgb Hct MCV MCH MCHC RDW Plt Count MPV Immature Gran % (Auto) Neut % (Auto) Lymph % (Auto) Bradford % (Auto) Eos % (Auto) Baso % (Auto) Lymph # (Auto) Bradford # (Auto) Eos # (Auto) Baso # (Auto) Abs Immat Gran (auto) Absolute Neuts (auto) Absolute Nucleated RBC Nucleated RBC % (auto) Neutrophils % (Manual) Band Neutrophils % Lymphocytes % (Manual) Monocytes % (Manual) Metamyelocytes % Abs Neuts (Manual) Lymphocytes # (Manual) Monocytes # (Manual) Metamyelocytes # Toxic Granulation Toxic Vacuolation Dohle Bodies Platelet Estimate Plt Morphology Comment RBC Morphology Hypochromasia Microcytosis Ovalocytes Acanthocytes (Spur) Schistocytes Smear Tech's Comments PT INR APTT VBG pH VBG pCO2 VBG pO2 VBG HCO3 VBG O2 Saturation VBG Base Excess Sodium Potassium Chloride Carbon Dioxide Anion Gap BUN Creatinine Estim Creat Clear Calc Estimated GFR POC Glucose 221 H 248 H 277 H Random Glucose Lactic Acid Calcium Phosphorus Magnesium Total Bilirubin Direct Bilirubin AST ALT Alkaline Phosphatase B-Natriuretic Peptide Total Protein Albumin Urine Color Urine Appearance Urine pH Ur Specific [place] Urine Protein Urine Glucose (UA) Urine Ketones Urine Blood Urine Nitrite Ur Leukocyte Esterase Urine RBC Urine WBC Ur Squamous Epith Cells Amorphous Sediment Urine Bacteria Random Vancomycin COVID-19 ([facility]A) COVID-19 Clin Com 01/28/21 01/29/21 01/29/21 20:23 05:25 05:26 WBC 31.9 H* RBC 3.29 L Hgb 8.6 L Hct 25.2 L MCV 76.6 L MCH 26.1 L MCHC 34.1 RDW 14.7 Plt Count 340 D MPV 8.7 L Immature Gran % (Auto) Cancelled Neut % (Auto) Cancelled Lymph % (Auto) Cancelled Bradford % (Auto) Cancelled Eos % (Auto) Cancelled Baso % (Auto) Cancelled Lymph # (Auto) Cancelled Bradford # (Auto) Cancelled Eos # (Auto) Cancelled Baso # (Auto) Cancelled Abs Immat Gran (auto) Cancelled Absolute Neuts (auto) Cancelled Absolute Nucleated RBC 0.000 Nucleated RBC % (auto) 0.0 Neutrophils % (Manual) 87 H Band Neutrophils % 10 H Lymphocytes % (Manual) 1 L Monocytes % (Manual) 2 Metamyelocytes % Abs Neuts (Manual) 30.9 H Lymphocytes # (Manual) 0.3 L Monocytes # (Manual) 0.6 Metamyelocytes # Toxic Granulation PRESENT Toxic Vacuolation PRES Dohle Bodies PRESENT Platelet Estimate NORMAL Plt Morphology Comment NORMAL RBC Morphology NOTED Hypochromasia Microcytosis Ovalocytes 1+ (5-14) Acanthocytes (Spur) 1+ (0-2) Schistocytes Smear Tech's Comments PT INR APTT VBG pH VBG pCO2 VBG pO2 VBG HCO3 VBG O2 Saturation VBG Base Excess Sodium Potassium Chloride Carbon Dioxide Anion Gap BUN Creatinine Estim Creat Clear Calc Estimated GFR POC Glucose 331 H Random Glucose Lactic Acid Calcium Phosphorus Magnesium Total Bilirubin 1.3 H Direct Bilirubin 1.1 H AST 17 ALT 19 Alkaline Phosphatase 321 H B-Natriuretic Peptide Total Protein 5.1 L Albumin 2.6 L Urine Color Urine Appearance Urine pH Ur Specific [place] Urine Protein Urine Glucose (UA) Urine Ketones Urine Blood Urine Nitrite Ur Leukocyte Esterase Urine RBC Urine WBC Ur Squamous Epith Cells Amorphous Sediment Urine Bacteria Random Vancomycin COVID-19 ([facility]A) COVID-19 [employer] Com 01/29/21 01/29/21 01/29/21 05:26 05:26 05:26 WBC RBC Hgb Hct MCV MCH MCHC RDW Plt Count MPV Immature Gran % (Auto) Neut % (Auto) Lymph % (Auto) Bradford % (Auto) Eos % (Auto) Baso % (Auto) Lymph # (Auto) Bradford # (Auto) Eos # (Auto) Baso # (Auto) Abs Immat Gran (auto) Absolute Neuts (auto) Absolute Nucleated RBC Nucleated RBC % (auto) Neutrophils % (Manual) Band Neutrophils % Lymphocytes % (Manual) Monocytes % (Manual) Metamyelocytes % Abs Neuts (Manual) Lymphocytes # (Manual) Monocytes # (Manual) Metamyelocytes # Toxic Granulation Toxic Vacuolation Dohle Bodies Platelet Estimate Plt Morphology Comment RBC Morphology Hypochromasia Microcytosis Ovalocytes Acanthocytes (Spur) Schistocytes Smear Tech's Comments PT 20.3 H INR 1.7 H APTT 29.8 VBG pH VBG pCO2 VBG pO2 VBG HCO3 VBG O2 Saturation VBG Base Excess Sodium 124 L Potassium 5.1 Chloride 96 Carbon Dioxide 19 L Anion Gap 14 BUN 49 H Creatinine 1.39 Estim Creat Clear Calc 70.3 Estimated GFR 52 POC Glucose Random Glucose 296 H Lactic Acid Calcium 8.2 L Phosphorus 2.3 L Magnesium 1.7 Total Bilirubin Direct Bilirubin AST ALT Alkaline Phosphatase B-Natriuretic Peptide 2020 H Total Protein Albumin Urine Color Urine Appearance Urine pH Ur Specific Lequire Urine Protein Urine Glucose (UA) Urine Ketones Urine Blood Urine Nitrite Ur Leukocyte Esterase Urine RBC Urine WBC Ur Squamous Epith Cells Amorphous Sediment Urine Bacteria Random Vancomycin COVID-19 ([facility]) COVID-19 [employer] Com 01/29/21 01/29/21 01/29/21 05:30 07:14 11:28 WBC RBC Hgb Hct MCV MCH MCHC RDW Plt Count MPV Immature Gran % (Auto) Neut % (Auto) Lymph % (Auto) Bradford % (Auto) Eos % (Auto) Baso % (Auto) Lymph # (Auto) Bradford # (Auto) Eos # (Auto) Baso # (Auto) Abs Immat Gran (auto) Absolute Neuts (auto) Absolute Nucleated RBC Nucleated RBC % (auto) Neutrophils % (Manual) Band Neutrophils % Lymphocytes % (Manual) Monocytes % (Manual) Metamyelocytes % Abs Neuts (Manual) Lymphocytes # (Manual) Monocytes # (Manual) Metamyelocytes # Toxic Granulation Toxic Vacuolation Dohle Bodies Platelet Estimate Plt Morphology Comment RBC Morphology Hypochromasia Microcytosis Ovalocytes Acanthocytes (Spur) Schistocytes Smear Tech's Comments PT INR APTT VBG pH 7.40 VBG pCO2 33 VBG pO2 44 VBG HCO3 21 L VBG O2 Saturation 73.0 VBG Base Excess -3.0 Sodium Potassium Chloride Carbon Dioxide Anion Gap BUN Creatinine Estim Creat Clear Calc Estimated GFR POC Glucose 269 H 288 H Random Glucose Lactic Acid Calcium Phosphorus Magnesium Total Bilirubin Direct Bilirubin AST ALT Alkaline Phosphatase B-Natriuretic Peptide Total Protein Albumin Urine Color Urine Appearance Urine pH Ur Specific [place] Urine Protein Urine Glucose (UA) Urine Ketones Urine Blood Urine Nitrite Ur Leukocyte Esterase Urine RBC Urine WBC Ur Squamous Epith Cells Amorphous Sediment Urine Bacteria Random Vancomycin COVID-19 ([facility]A) COVID-19 Clin Com 01/29/21 01/29/21 01/29/21 16:32 19:07 20:39 WBC RBC Hgb Hct MCV MCH MCHC RDW Plt Count MPV Immature Gran % (Auto) Neut % (Auto) Lymph % (Auto) Bradford % (Auto) Eos % (Auto) Baso % (Auto) Lymph # (Auto) Bradford # (Auto) Eos # (Auto) Baso # (Auto) Abs Immat Gran (auto) Absolute Neuts (auto) Absolute Nucleated RBC Nucleated RBC % (auto) Neutrophils % (Manual) Band Neutrophils % Lymphocytes % (Manual) Monocytes % (Manual) Metamyelocytes % Abs Neuts (Manual) Lymphocytes # (Manual) Monocytes # (Manual) Metamyelocytes # Toxic Granulation Toxic Vacuolation Dohle Bodies Platelet Estimate Plt Morphology Comment RBC Morphology Hypochromasia Microcytosis Ovalocytes Acanthocytes (Spur) Schistocytes Smear Tech's Comments PT INR APTT VBG pH VBG pCO2 VBG pO2 VBG HCO3 VBG O2 Saturation VBG Base Excess Sodium Potassium Chloride Carbon Dioxide Anion Gap BUN Creatinine Estim Creat Clear Calc Estimated GFR POC Glucose 280 H 255 H Random Glucose Lactic Acid Calcium Phosphorus Magnesium Total Bilirubin Direct Bilirubin AST ALT Alkaline Phosphatase B-Natriuretic Peptide Total Protein Albumin Urine Color Urine Appearance Urine pH Ur Specific [place] Urine Protein Urine Glucose (UA) Urine Ketones Urine Blood Urine Nitrite Ur Leukocyte Esterase Urine RBC Urine WBC Ur Squamous Epith Cells Amorphous Sediment Urine Bacteria Random Vancomycin 11.6 L COVID-19 ([facility]) COVID-19 Clin Com 01/30/21 01/30/21 01/30/21 05:11 05:12 05:12 WBC 20.6 H RBC 3.07 L Hgb 7.8 L Hct 23.7 L MCV 77.2 L MCH 25.4 L MCHC 32.9 RDW 15.1 Plt Count 260 MPV 8.6 L Immature Gran % (Auto) Cancelled Neut % (Auto) Cancelled Lymph % (Auto) Cancelled Bradford % (Auto) Cancelled Eos % (Auto) Cancelled Baso % (Auto) Cancelled Lymph # (Auto) Cancelled Bradford # (Auto) Cancelled Eos # (Auto) Cancelled Baso # (Auto) Cancelled Abs Immat Gran (auto) Cancelled Absolute Neuts (auto) Cancelled Absolute Nucleated RBC 0.000 Nucleated RBC % (auto) 0.0 Neutrophils % (Manual) 88 H Band Neutrophils % 9 H Lymphocytes % (Manual) 1 L Monocytes % (Manual) 2 Metamyelocytes % Abs Neuts (Manual) 20.0 H Lymphocytes # (Manual) 0.2 L Monocytes # (Manual) 0.4 Metamyelocytes # Toxic Granulation Toxic Vacuolation PRESENT Dohle Bodies PRESENT Platelet Estimate NORMAL Plt Morphology Comment NORMAL RBC Morphology NOTED Hypochromasia Microcytosis 1+ (5-14) Ovalocytes 1+ (5-14) Acanthocytes (Spur) 1+ (0-2) Schistocytes 1+ (0-2) Smear Tech's Comments PT 20.2 H INR 1.7 H APTT 28.7 VBG pH VBG pCO2 VBG pO2 VBG HCO3 VBG O2 Saturation VBG Base Excess Sodium 128 L Potassium 4.5 Chloride 100 Carbon Dioxide 20 L Anion Gap 13 BUN 54 H Creatinine 1.40 Estim Creat Clear Calc 69.7 Estimated GFR 52 POC Glucose Random Glucose 251 H Lactic Acid Calcium 8.1 L Phosphorus 2.4 L Magnesium 1.8 Total Bilirubin 1.5 H Direct Bilirubin 1.2 H AST 17 ALT 19 Alkaline Phosphatase 304 H B-Natriuretic Peptide Total Protein 4.6 L Albumin 2.3 L Urine Color Urine Appearance Urine pH Ur Specific [place] Urine Protein Urine Glucose (UA) Urine Ketones Urine Blood Urine Nitrite Ur Leukocyte Esterase Urine RBC Urine WBC Ur Squamous Epith Cells Amorphous Sediment Urine Bacteria Random Vancomycin COVID-19 ([facility]) COVID-19 Clin Com 01/30/21 01/30/21 01/30/21 05:12 05:18 07:43 WBC RBC Hgb Hct MCV MCH MCHC RDW Plt Count MPV Immature Gran % (Auto) Neut % (Auto) Lymph % (Auto) Bradford % (Auto) Eos % (Auto) Baso % (Auto) Lymph # (Auto) Bradford # (Auto) Eos # (Auto) Baso # (Auto) Abs Immat Gran (auto) Absolute Neuts (auto) Absolute Nucleated RBC Nucleated RBC % (auto) Neutrophils % (Manual) Band Neutrophils % Lymphocytes % (Manual) Monocytes % (Manual) Metamyelocytes % Abs Neuts (Manual) Lymphocytes # (Manual) Monocytes # (Manual) Metamyelocytes # Toxic Granulation Toxic Vacuolation Dohle Bodies Platelet Estimate Plt Morphology Comment RBC Morphology Hypochromasia Microcytosis Ovalocytes Acanthocytes (Spur) Schistocytes Smear Tech's Comments PT INR APTT VBG pH 7.41 VBG pCO2 32 VBG pO2 113 VBG HCO3 20 L VBG O2 Saturation 98.0 VBG Base Excess -3.2 Sodium Potassium Chloride Carbon Dioxide Anion Gap BUN Creatinine Estim Creat Clear Calc Estimated GFR POC Glucose 237 H Random Glucose Lactic Acid Calcium Phosphorus Magnesium Total Bilirubin Direct Bilirubin AST ALT Alkaline Phosphatase B-Natriuretic Peptide 1667 H Total Protein Albumin Urine Color Urine Appearance Urine pH Ur Specific [place] Urine Protein Urine Glucose (UA) Urine Ketones Urine Blood Urine Nitrite Ur Leukocyte Esterase Urine RBC Urine WBC Ur Squamous Epith Cells Amorphous Sediment Urine Bacteria Random Vancomycin COVID-19 ([facility]) COVID-19 Clin Com 01/27/21 EKG: Normal sinus rhythm Left axis deviation Low voltage QRS Inferior infarct , age undetermined Possible Anterolateral infarct , age undetermined Abnormal ECG No previous ECGs available 01/27/21 CXR:Heart size upper limits of normal. No gross CHF. Mild streaky perihilar densities on the right with some more linear atelectasis in the left mid lung. No gross consolidations or pleural effusions. IMPRESSION: No acute intrathoracic disease. Some mild perihilar density on the right with left midlung atelectasis Airway Mallampati Class: II TM Dist: >3cm Neck ROM: Full Loose/Missing/Broken Teeth: Yes (Poor dentition. Many missing. Many broken) Heart: Irregular ?murmur Lungs: CTAB Assessment and Plan Assessment Anesthesia Assessment: Anesthesia Plan Discussed and Chart Reviewed Final Anesthetic Review NPO: No (Breakfast about 2 hours ago) ASA Class: IV and Emergency Final Preanesthetic Review: No Changes in Pt Med Stat, Meds/Allgs Chart Reviewed, Consent Obtained/Reviewed and Anes Risks/Benef Reviewed Patient Risk: High Procedure Risk: Intermediate Anesthetic Plan Anesthetic Plan: GA (GETA. Emergent surgery. Discussed with Dr Leong. Will do RSI with cricoid pressure.) Disposition: Inp. Admit - ICU (Back to ICU post op)
--- NOTE | 2021-01-30 10:31 | MHC.SHP ---
Pre-Procedural Eval Section A The patient is an INPATIENT: Yes Changes since office visit: Yes Patient answered all questions; No Cold of Flu in the past 2 weeks, No New Medical Problems and No Changes in Medication Section B Chief Complaint: Hypotension Allergies: Allergies Allergy/AdvReac Type Severity Reaction Status Date / Time No Known Allergies Allergy Verified 01/27/21 19:59 Plan Diagnosis/Plan: Unchanged I have reviewed the history and physical and performed a pertinent physical examination on my patient. No changes have occurred unless specified.
[2021-01-30] MEDS: ceFAZolin Sodium/Dextrose,Iso 2 GM/50 ML PIGGYBACK IV (11:00)
--- NOTE | 2021-01-30 11:03 | P.PNCC_ITS ---
Subjective Subjective Date of Service: 01/30/21 Interval History: 60-year-old gentleman with underlying history of diabetes mellitus, AFib on Eliquis, hypertension, cardiomyopathy, Tourette's, right TMA, left heel also admitted on 529 with sepsis with soft tissue source. Patient has been treated with broad-spectrum antibiotics and required vasopressor support. On 01/30/2021 general surgery consultation for debridement has been requested inpatient is scheduled for debridement in the OR. Critical Care Time (minutes): 60 Physical Exam Vital Signs: Vital Signs: Last Vital Signs Temp 98.6 F 01/30/21 10:00 Pulse 80 01/30/21 10:00 Resp 20 01/30/21 10:00 BP 95/62 01/30/21 10:00 Pulse Ox 97 01/30/21 10:00 Body Mass Index 29.5 Const: General: no acute distress, alert and awake Eyes: Sclerae: sclerae normal EOM: EOMs intact bilaterally Neck: Neck: Yes no lymphadenopathy, Yes trachea midline and Yes supple Resp: Effort & Inspection: normal respiratory effort and no respiratory distr ess Auscultation: clear to auscultation bilaterally Cardio: Rate: regular rate Rhythm: regular rhythm Heart sounds: no gallops, no murmurs and no rubs GI: Palpation (GI): Soft to palpation and Other GI palpation findings present ( Nontender) Auscultation: normal bowel sounds Extrem: General: No clubbing, No cyanosis and Yes other (Right TMA, left heel ulcer with area of fluctuance and anesthesia around it) Objective Data Labs CBC & Chem 7: 01/30/21 05:12 01/30/21 05:12 Labs: Laboratory Results - last 24 hr 01/29/21 01/29/21 01/29/21 11:28 16:32 19:07 WBC RBC Hgb Hct MCV MCH MCHC RDW Plt Count MPV Immature Gran % (Auto) Neut % (Auto) Lymph % (Auto) [place] % (Auto) Eos % (Auto) Baso % (Auto) Lymph # (Auto) [place] # (Auto) Eos # (Auto) Baso # (Auto) Abs Immat Gran (auto) Absolute Neuts (auto) Absolute Nucleated RBC Nucleated RBC % (auto) Neutrophils % (Manual) Band Neutrophils % Lymphocytes % (Manual) Monocytes % (Manual) Abs Neuts (Manual) Lymphocytes # (Manual) Monocytes # (Manual) Toxic Vacuolation Dohle Bodies Platelet Estimate Plt Morphology Comment RBC Morphology Microcytosis Ovalocytes Acanthocytes (Spur) Schistocytes PT INR APTT VBG pH VBG pCO2 VBG pO2 VBG HCO3 VBG O2 Saturation VBG Base Excess Sodium Potassium Chloride Carbon Dioxide Anion Gap BUN Creatinine Estim Creat Clear Calc Estimated GFR POC Glucose 288 H 280 H Random Glucose Calcium Phosphorus Magnesium Total Bilirubin Direct Bilirubin AST ALT Alkaline Phosphatase B-Natriuretic Peptide Total Protein Albumin Random Vancomycin 11.6 L Blood Type Antibody Screen 01/29/21 01/30/21 01/30/21 20:39 05:11 05:12 WBC 20.6 H RBC 3.07 L Hgb 7.8 L Hct 23.7 L MCV 77.2 L MCH 25.4 L MCHC 32.9 RDW 15.1 Plt Count 260 MPV 8.6 L Immature Gran % (Auto) Cancelled Neut % (Auto) Cancelled Lymph % (Auto) Cancelled [place] % (Auto) Cancelled Eos % (Auto) Cancelled Baso % (Auto) Cancelled Lymph # (Auto) Cancelled [place] # (Auto) Cancelled Eos # (Auto) Cancelled Baso # (Auto) Cancelled Abs Immat Gran (auto) Cancelled Absolute Neuts (auto) Cancelled Absolute Nucleated RBC 0.000 Nucleated RBC % (auto) 0.0 Neutrophils % (Manual) 88 H Band Neutrophils % 9 H Lymphocytes % (Manual) 1 L Monocytes % (Manual) 2 Abs Neuts (Manual) 20.0 H Lymphocytes # (Manual) 0.2 L Monocytes # (Manual) 0.4 Toxic Vacuolation PRESENT Dohle Bodies PRESENT Platelet Estimate NORMAL Plt Morphology Comment NORMAL RBC Morphology NOTED Microcytosis 1+ (5-14) Ovalocytes 1+ (5-14) Acanthocytes (Spur) 1+ (0-2) Schistocytes 1+ (0-2) PT 20.2 H INR 1.7 H APTT 28.7 VBG pH VBG pCO2 VBG pO2 VBG HCO3 VBG O2 Saturation VBG Base Excess Sodium Potassium Chloride Carbon Dioxide Anion Gap BUN Creatinine Estim Creat Clear Calc Estimated GFR POC Glucose 255 H Random Glucose Calcium Phosphorus Magnesium Total Bilirubin Direct Bilirubin AST ALT Alkaline Phosphatase B-Natriuretic Peptide Total Protein Albumin Random Vancomycin Blood Type Antibody Screen 01/30/21 01/30/21 01/30/21 05:12 05:12 05:18 WBC RBC Hgb Hct MCV MCH MCHC RDW Plt Count MPV Immature Gran % (Auto) Neut % (Auto) Lymph % (Auto) [place] % (Auto) Eos % (Auto) Baso % (Auto) Lymph # (Auto) [place] # (Auto) Eos # (Auto) Baso # (Auto) Abs Immat Gran (auto) Absolute Neuts (auto) Absolute Nucleated RBC Nucleated RBC % (auto) Neutrophils % (Manual) Band Neutrophils % Lymphocytes % (Manual) Monocytes % (Manual) Abs Neuts (Manual) Lymphocytes # (Manual) Monocytes # (Manual) Toxic Vacuolation Dohle Bodies Platelet Estimate Plt Morphology Comment RBC Morphology Microcytosis Ovalocytes Acanthocytes (Spur) Schistocytes PT INR APTT VBG pH 7.41 VBG pCO2 32 VBG pO2 113 VBG HCO3 20 L VBG O2 Saturation 98.0 VBG Base Excess -3.2 Sodium 128 L Potassium 4.5 Chloride 100 Carbon Dioxide 20 L Anion Gap 13 BUN 54 H Creatinine 1.40 Estim Creat Clear Calc 69.7 Estimated GFR 52 POC Glucose Random Glucose 251 H Calcium 8.1 L Phosphorus 2.4 L Magnesium 1.8 Total Bilirubin 1.5 H Direct Bilirubin 1.2 H AST 17 ALT 19 Alkaline Phosphatase 304 H B-Natriuretic Peptide 1667 H Total Protein 4.6 L Albumin 2.3 L Random Vancomycin Blood Type Antibody Screen 01/30/21 01/30/21 07:43 09:43 WBC RBC Hgb Hct MCV MCH MCHC RDW Plt Count MPV Immature Gran % (Auto) Neut % (Auto) Lymph % (Auto) [place] % (Auto) Eos % (Auto) Baso % (Auto) Lymph # (Auto) [place] # (Auto) Eos # (Auto) Baso # (Auto) Abs Immat Gran (auto) Absolute Neuts (auto) Absolute Nucleated RBC Nucleated RBC % (auto) Neutrophils % (Manual) Band Neutrophils % Lymphocytes % (Manual) Monocytes % (Manual) Abs Neuts (Manual) Lymphocytes # (Manual) Monocytes # (Manual) Toxic Vacuolation Dohle Bodies Platelet Estimate Plt Morphology Comment RBC Morphology Microcytosis Ovalocytes Acanthocytes (Spur) Schistocytes PT INR APTT VBG pH VBG pCO2 VBG pO2 VBG HCO3 VBG O2 Saturation VBG Base Excess Sodium Potassium Chloride Carbon Dioxide Anion Gap BUN Creatinine Estim Creat Clear Calc Estimated GFR POC Glucose 237 H Random Glucose Calcium Phosphorus Magnesium Total Bilirubin Direct Bilirubin AST ALT Alkaline Phosphatase B-Natriuretic Peptide Total Protein Albumin Random Vancomycin Blood Type O Positive Antibody Screen NEGATIVE Microbiology Microbiology Results: Microbiology 01/27/21 20:32 Blood - Venous Blood Culture - Preliminary No growth after 48 hours. 01/27/21 20:19 Blood - Venous Blood Culture - Preliminary No growth after 48 hours. Progress Note: A&P Assessment and plan (1) Atrial fibrillation with rapid ventricular response: Status: Acute Assessment and Plan: Assessment: 60-year-old gentleman with underlying diabetes mellitus, peripheral vascular disease, history of right TMA, and left chronic her also admitted with sepsis with soft tissue source Plan: Neuro: No acute issues. Cardiac: History of cardiomyopathy, 2D echocardiogram is pending. Underlying AFib, Eliquis held periprocedurely. Pulmonary: No acute issues. Renal: Acute kidney injury, likely secondary to septic shock, non oliguric, improving. Continue to monitor urine output and renal indices. Endo: No acute issues. Underlying diabetes mellitus. GI: No acute issues. ID: Left heel fasciitis and osteomyelitis. General surgery service care appreciated. Planned for debridement in OR today. Continue broad-spectrum antibiotics. Heme/Onc: No acute issues. Psych: No acute issues. Miscellaneous: No acute issues. Prophylaxis: Eliquis Diet: Diabetic Critical care time spent: 60 minutes (2) Sepsis associated hypotension: Status: Acute (3) Acute osteomyelitis of left ankle or foot: Status: Acute (4) Necrotizing fasciitis: Status: Acute (5) Acute renal failure: Status: Acute (6) Congestive cardiomyopathy: Status: Acute (7) Diabetes mellitus: Status: Acute
--- NOTE | 2021-01-30 12:10 | P.OP_ITS ---
Operative Note Operative Note Date of Service: 01/30/21 Narrative: Preoperative diagnosis: Necrotizing fasciitis left leg Postoperative diagnosis: Same Procedure: Incision, drainage, and debridement left leg Surgeon: uSnil Leong MD Dermatology Sales Representative: No physician Anesthesia: General endotracheal Indications for procedure: 60-year-old male patient with history of diabetes, congestive cardiomyopathy, atrial fibrillation, and chronic left foot wound now with a large abscess with necrotic skin noted in the posterior left leg. He presents for wide incision and drainage and possible debridement. Operative findings: Patient found to have extensive fascial necrosis in the pos terior calf along the gastrocnemius muscle extending to just above the knee. No necrosis was noted above the knee. Wounds were irrigated and packed with Betadine-soaked gauze. Specimen: None Estimated blood loss: 30 mL Complications: None Procedure details: Patient was brought to the OR and placed in a supine position. After administering general anesthesia the patient's left leg was pr epped with Betadine to above the knee and draped in a sterile fashion. A surgical time-out was called the consent confirmed. Patient received preoperative antibiotics. Beginning in the lower left leg at the previous ulcer located just posterior to the medial malleolus incision was made up the calf with electrocautery. This was carried down through subcutaneous tissue. Hemostasis was assured using electrocautery. A pocket was entered and found to contain necrotic fascia. This was excised using Metzenbaum scissors. Dissection was continued more superiorly to just below the popliteal fossa. Residual purulence material was noted in this location. This was widely opened and the fashion debrided down to viable tissue. No skin necrosis was noted at this time. A pocket was identified extending into the popliteal fossa. This was opened above the knee with a separate incision in the medial thigh just above the knee. The 2 pockets were connected however no necrotic tissue could be identified and no purulence collection was noted in this location. The calf wounds were re-examined and any necrotic tissue removed using Metzenbaum scissors down to viable tissue. Wounds were then thoroughly irrigated with saline solution the Pulsavac. The wounds were then packed with Betadine-soaked Kerlix beginning above the knee and ache continuing down to the ankle well. This was then covered with ABD pad and Kerlix. The patient was awoken in the recovery room. He tolerated the procedure well. Sponge, instrument, and needle counts reported as correct. He was transferred back to the intensive care unit in stable condition. Plan is for a second-look procedure in the a.m. tomorrow. If continued extension of the chronic tissue was identified there is a possibility amputation may be required. This will be discussed with the patient once he is recovered from anesthesia.
[2021-01-30 12:51] LABS: Glucose, Whole Blood 240 mg/dL (60-115)
[2021-01-30] MEDS: oxyCODONE HCl Immed Release 5 MG TABLET PO (13:56)
[2021-01-30] MEDS: fentaNYL citrate/PF 100 MCG/2 ML VIAL 50 MCG IVPUSH ×2 (15:54→20:50)
[2021-01-30] MEDS: Phenylephrine HCL 20 MG in 0.9 % Sodium Chloride 250 ML 44.59 MG IVCONT (17:14)
[2021-01-30 17:15] LABS: Glucose, Whole Blood 228 mg/dL (60-115)
[2021-01-30] MEDS: vancomycin HCL 1,500 MG in 0.9 % Sodium Chloride 500 ML 333.33 MG IV (20:19)
[2021-01-30] MEDS: Insulin Glargine,Hum.rec.anlog 100 UNIT/ML 10 ML VIAL 10 UNIT SUBCUT (20:25)
[2021-01-30 20:29] LABS: Glucose, Whole Blood 233 mg/dL (60-115)
[2021-01-31] VITALS (27 sets, daily range): BP systolic 89–141; BP diastolic 40–89; PULSE 80–110; RESP 10–20; TEMP 36.3–36.7; O2SAT 92–100; BMI 31.1
[2021-01-31] MEDS: Phenylephrine HCL 20 MG in 0.9 % Sodium Chloride 250 ML 37.16 MG IVCONT (00:02)
[2021-01-31] MEDS: Piperacillin Sodium/Tazobactam 4.5 GM in 0.9 % Sodium Chloride 100 ML IV ×4 (02:22→20:03)
[2021-01-31] MEDS: fentaNYL citrate/PF 100 MCG/2 ML VIAL 50 MCG IVPUSH ×4 (02:26→21:22)
[2021-01-31] MEDS: Albumin Human 25 % 100 ML IV ×4 (02:26→20:03)
[2021-01-31 05:37] LABS: Basophils Percent Auto 0.1 % (0-2); Eosinophils Absolute Auto 0.1 X10*3/uL (0.0-0.4); Eosinophils Percent Auto 0.4 % (0-4); Hematocrit 23.7 % (42-52); Hemoglobin 7.9 g/dl (14.0-18.0); Imm Gran Abs Auto 0.45 X10*3/uL (0.00-0.03); Imm Gran Pct Auto 2.7 % (0.0-0.4); Lymphocytes Absolute Auto 0.4 X10*3/uL (1.2-4.9); Lymphocytes Percent Auto 2.6 % (20-40); MANUAL DIFF FLAG SCAN; Mean Corpuscular HGB Conc 33.3 g/dl (31.0-36.0); Mean Corpuscular Hemoglobin 26.2 pg (27.0-33.0); Mean Corpuscular Volume 78.7 fL (80-98); Mean Platelet Volume 8.6 fL (9.4-12.4); Monocytes Absolute Auto 0.8 X10*3/uL (0.1-1.2); Neutrophils Absolute Auto 14.9 X10*3/uL (2.0-8.3); Neutrophils Percent Auto 89.2 % (45-73); Platelet Count 218 X10*3/uL (160-400); Red Blood Count 3.01 X10*6/uL (4.60-5.80); Red Cell Distribution Width 15.6 % (11.0-16.0); SCAN SMEAR FLAG 1; White Blood Count 16.7 X10*3/uL (4.8-10.8)
[2021-01-31 06:17] LABS: Alanine Aminotransferase 14 U/L (0-40); Albumin Level 2.8 g/dL (3.5-5.0); Alkaline Phosphatase 272 U/L (39-117); Anion Gap 15 (12-20); Aspartate Amino Transferase 19 U/L (5-37); Bilirubin Total 2.5 mg/dL (0.0-1.0); Blood Urea Nitrogen 59 mg/dL (9-16); Calcium 8.2 mg/dL (8.4-10.2); Carbon Dioxide 19 mmol/L (22-29); Chloride 101 mmol/L (96-108); Creatinine Clr Calc Pharmacy 64.4; Estimated Glomerular Filt Rate 47; Glucose Random 235 mg/dL (60-115); Phosphorus 2.8 mg/dL (2.7-4.5); Potassium 4.4 mmol/L (3.3-5.1); Sodium 131 mmol/L (135-145)
[2021-01-31 06:29] LABS: SLIDE REVIEW VERIFIED
[2021-01-31 07:30] LABS: Glucose, Whole Blood 226 mg/dL (60-115)
[2021-01-31] MEDS: Insulin Lispro 100 UNIT/ML 3 ML VIAL SUBCUT ×4 (07:31→21:30)
--- NOTE | 2021-01-31 08:02 | PM.PNGS ---
Subjective Subjective Date of Service: 01/31/21 Interval history: patient reports some soreness in the upper leg, denies foot pain. Wounds reported to be draining serosanguineous fluid. Physical Exam Vital Signs: Vital Signs: Last Vital Signs Temp 98 F 01/31/21 00:00 Pulse 86 01/31/21 07:00 Resp 15 01/31/21 07:00 BP 99/67 01/31/21 07:00 Pulse Ox 94 01/31/21 07:00 Body Mass Index 31.1 Const: General: no acute distress, alert, awake and ill appearing Orientation/consciousness: patient oriented x3 Resp: Effort & Inspection: normal respiratory effort, no stridor and not tachypneic GI: Inspection: Yes normal to inspection Neuro: General: patient oriented x3 Extrem: Other: Left leg dressings changed this morning. Large incision in the posterior calf with ischemic changes noted in skin on the superior flap. Muscle does have a dusky appearance. No foul-smelling discharge appreciated. Some bleeding tissue is identified. Thigh incision with no necrotic changes. There is edema noted in the upper thigh without erythema or skin necrosis. Progress Note: A&P Assessment and plan (1) Necrotizing fasciitis: Status: Acute Assessment and Plan: Patient with necrotizing fasciitis involving left leg status post wide debridement yesterday. Plan is to return to the OR later today for further debridement or possible amputation. I reviewed the findings of the operative procedure in detail with the patient and discussed the possibility of an amputation including a possible above knee amputation Depending on the findings of this second-look procedure. After discussion of the procedure, risks, and alternatives, he consents to the left leg debridement and possible above knee amputation. Fall Risk Details Current Medications: Current Medications Generic Name Dose Route Start Last Admin Trade Name Freq PRN Reason Stop Dose Admin Fentanyl 50 mcg 01/30/21 15:17 01/31/21 07:17 Fentanyl Citrate/Pf 100 Mcg/2 Ml Vial IVPUSH 50 mcg Q2H PRN Administration Pain, Moderate (Pain Scale 4-6 Phenylephrine HCl 20 mg/ 252 mls @ 0 mls/hr 01/28/21 11:15 01/31/21 05:09 Sodium Chloride IVCONT 0 mcg/kg/min .Q0M AKILA 0 mls/hr Titration Protocol Per Protocol Piperacillin Sod/Tazobactam 100 mls @ 200 mls/hr 01/29/21 07:00 01/31/21 07:58 Sod 4.5 gm/ Sodium Chloride IV Infused Q6H AKILA Infusion Vancomycin HCl 1,500 mg/ 500 mls @ 333.333 mls/hr 01/29/21 20:45 01/30/21 21:08 Sodium Chloride IV Infused Q24H AKILA Infusion Furosemide 200 mg/ Sodium 100 mls @ 1 mls/hr 01/30/21 09:00 01/30/21 14:00 Chloride IVCONT 0 mg/hr .Q24H AKILA 0 mls/hr Infusion 2 MG/HR Albumin Human 100 mls @ 100 mls/hr 01/31/21 08:00 01/31/21 08:00 Kedbumin 25 % IV 02/01/21 02:59 100 mls/hr Q6H AKILA Administration Insulin Glargine 10 unit 01/28/21 21:00 01/30/21 20:25 Insulin Glargine,Hum.Rec.Anlog 100 Unit/Ml 10 Ml Vial SUBCUT 10 unit BEDTIME AKILA Administration Insulin Human Lispro 0 unit 01/28/21 07:30 01/31/21 07:31 Insulin Lispro 100 Unit/Ml 3 Ml Vial SUBCUT 4 unit QIDACHS AKILA Administration Protocol Oxycodone HCl 5 mg 01/28/21 00:38 01/30/21 13:56 Oxycodone Hcl Immed Release 5 Mg Tablet PO 5 mg Q6H PRN Administration Pain, Moderate (Pain Scale 4-6 Pharmacy Consult 1 each 01/27/21 20:21 Consult Rx Vancomycin Dosing MISCELLANE DAILY PRN Consult order Time Spent With Patient Time: Total time spent is greater than 50% in coordination of care (as documented) at patient's floor/unit and/or counseling patient: Time with patient: 15 - 24 minutes Procedures Date of Service Date of Service: 01/31/21
[2021-01-31] MEDS: oxyCODONE HCl Immed Release 5 MG TABLET PO (08:59)
[2021-01-31 11:21] LABS: Glucose, Whole Blood 204 mg/dL (60-115)
--- NOTE | 2021-01-31 12:00 | CA_ITS ---
Transthoracic Echocardiogram Patient (Last, First, Middle): Jelani Beltran, Gender: Male Date of : 1960 Age: 60 Procedure Date: 01/31/2021 Procedure Type: Transthoracic Echocardiogram Location: ICU Height: 182.88 cm Weight: 98.43 kg BSA: 2.21 m2 Heart Rate: bpm BP: 111 / 68 mmHg Flocculator Operator: LEO Referring MD: Laurent Alvarado MD Symptoms: cardiomyopathy Study Quality: Fair Conclusions: - The left ventricular systolic function is moderate to severely decreased. The visually estimated ejection fraction is between 25-30%. - There is moderate global hypokinesis with regional variation. Apical segments are akinetic. - Normal right ventricular cavity size and systolic function. Findings Left Ventricle Normal left ventricular cavity size. There is normal left ventricular wall thickness. The left ventricular systolic function is moderate to severely decreased. The visually estimated ejection fraction is between 25-30%. There is moderate global hypokinesis with regional variation. Apical segments are akinetic. Diastolic function is indeterminate on the basis of available data. Right Ventricle Normal right ventricular cavity size and systolic function. Atria The left atrium is moderately dilated. The right atrium is mildly dilated. Aortic Valve There is mild calcification of the aortic valve. There is no aortic valve stenosis. There is no aortic valve regurgitation. Mitral Valve Normal mitral valve structure and function. There is trace mitral valve regurgitation. There is no mitral valve stenosis. Pulmonic Valve Normal pulmonic valve structure and function. There is no pulmonic valve regurgitation. Tricuspid Valve Normal tricuspid valve structure and function. There is mild tricuspid valve regurgitation. Moderately elevated right atrial pressure. Mild pulmonary hypertension is present. Great Vessels There is mild dilatation of the ascending aorta. The visualized portions of the pulmonary artery and branches are normal. Venous The inferior vena cava is dilated and collapses less than 50% with inspiration. Pericardium/Pleural There is a trivial pericardial effusion. There are no definitive echocardiographic findings of tamponade physiology. Prior Study Comparison No prior study available for comparison. Measurements M-Mode Liner Measurements Normals - Women/Men AOV Cusps: 2.20 1.5-2.6 cm/m2 2D Linear Measurements RVIDd: 4.84 RVIDd Index: 2.19 IVSd: 0.96 0.6-0.9/0.6-1.0 cm LVIDd: 6.12 3.9-5.3/4.2-5.9 cm LVIDd Index: 2.77 2.4-3.2/2.2-3.1 cm/m2 LVIDs: 5.84 2.0-3.6 cm LVPWd: 0.76 0.7-1.1 cm Ao Root: 3.40 2.1-3.5 cm LA Diam: 4.40 2.7-3.8/3.0-4.0 cm LAIDs Index: 1.99 1.5-2.3 cm/m2 LV Mass: 262.97 67-162/88-224 g LV Mass Index: 118.99 43-95/49-115 g/m2 LVOT Diam: 2.10 3.0+(-)1.3 cm 2D Systolic Function EF 4C: 57.10 >55% EF 2C: 47.80 >55% Mitral Valve MV Pk E: 1.35 MV Decel Time: 141.00 PHT: 41.00 MVA PHT: 5.37 Decel [place]: 9.56 Aortic Valve AoV Pk Aroldo: 1.49 AoV Mn Aroldo: 1.26 AoV VTI: 0.30 AoV Pk Grad: 9.00 Aov Mn Grad: 7.00 MOHINI Cont.VTI: 2.43 LVOT LVOT Pk Aroldo: 1.08 LVOT Mn Aroldo: 0.76 LVOT VTI: 0.21 LVOT Pk Grad: 5.00 LVOT Mn Grad: 3.00 LVOT Diam: 2.10 LVOT Area: 3.46 Diastolic Function MV Pk E: 1.35 Tricuspid Valve TR Pk Aroldo: 2.85 TR Pk Grad: 32.00 RA Press: 8.00 RVSP: 40.00 Great Vessels Aorta Ao Root-2D: 3.40 2.0-3.7 cm Ao Asc: 3.60 2.1-3.4 cm Pulmonary Valve PV Pk Aroldo: 0.95 Peak PV Grad: 4.00 Updated in Other Vendor System with Status of Final Jesse Sprague MD electronically signed on 01/31/2021 3:54:59 PM with status of Final
--- NOTE | 2021-01-31 12:27 | MHC.SHP ---
Pre-Procedural Eval Section A The patient is an INPATIENT: Yes Section B Chief Complaint: Hypotension Allergies: Allergies Allergy/AdvReac Type Severity Reaction Status Date / Time No Known Allergies Allergy Verified 01/27/21 19:59 Plan I have reviewed the history and physical and performed a pertinent physical examination on my patient. No changes have occurred unless specified.
--- NOTE | 2021-01-31 12:32 | P.CONAN_ITS ---
[facility] Active Problems Active Problems: All Active Problems (Updated 01/30/21 @ 12:41 by Vanna fagan) Necrotizing fasciitis (Acute) Acute renal failure (Acute) Congestive cardiomyopathy (Acute) Atrial fibrillation with rapid ventricular response (Acute) Hyponatremia (Acute) Acute osteomyelitis of left ankle or foot (Acute) Sepsis associated hypotension (Acute) Diabetes mellitus (Acute) Past Medical History Medical History Atrial fibrillation Cardiomyopathy Chronic wound of extremity Diabetic foot ulcer Hyperlipidemia Hypertension Iron deficiency anemia MRSA pneumonia Pleural empyema Tourette disease Family History Family history of problems with anesthesia: No Surgical History Surgical History H/O chest tube placement History of amputation of right foot through metatarsal bone History of Problems with Anesthesia: No Social History Social History Housing: Senior Care Do you presently have visiting nurse or other home services: No Alcohol intake: unknown Patient Tobacco Use Status: Never used Tobacco Smoked in Last 30 Days: No Patient Interested in Nicotine Replacement: No Patient Given Instructions on How to Stop Smoking: No Second Hand Smoke Exposure: No Use of substances other than those prescribed or required for medical reasons: No Currently Displaying Signs/Symptoms of Drug Intoxication Withdrawal: No Have you been hit, kicked, punched, or otherwise hurt by someone within the past year? If so, by whom?: No Do you feel safe in your current relationship?: No Is there a partner from a previous relationship who is making you feel unsafe now?: No Advance Directives: No Advance Directives Information Provided: Yes Do you have thoughts of harming others: None Do you have a plan to hurt others: No Plan service: No Current occupational status: disabled Meds Allergies Allergy/AdvReac Type Severity Reaction Status Date / Time No Known Allergies Allergy Verified 01/27/21 19:59 Active Medications: Current Medications Generic Name Dose Route Start Last Admin Trade Name Freq PRN Reason Stop Dose Admin Fentanyl 50 mcg 01/30/21 15:17 01/31/21 07:17 Fentanyl Citrate/Pf 100 Mcg/2 Ml Vial IVPUSH 50 mcg Q2H PRN Administration Pain, Moderate (Pain Scale 4-6 Phenylephrine HCl 20 mg/ 252 mls @ 0 mls/hr 01/28/21 11:15 01/31/21 05:09 Sodium Chloride IVCONT 0 mcg/kg/min .Q0M AKILA 0 mls/hr Titration Protocol Per Protocol Piperacillin Sod/Tazobactam 100 mls @ 200 mls/hr 01/29/21 07:00 01/31/21 07:58 Sod 4.5 gm/ Sodium Chloride IV Infused Q6H AKILA Infusion Vancomycin HCl 1,500 mg/ 500 mls @ 333.333 mls/hr 01/29/21 20:45 01/30/21 21:08 Sodium Chloride IV Infused Q24H AKILA Infusion Furosemide 200 mg/ Sodium 100 mls @ 1 mls/hr 01/30/21 09:00 01/31/21 10:09 Chloride IVCONT Not Given .Q24H AKILA 2 MG/HR Albumin Human 100 mls @ 100 mls/hr 01/31/21 08:00 01/31/21 08:54 Kedbumin 25 % IV 02/01/21 02:59 Infused Q6H AKILA Infusion Insulin Glargine 10 unit 01/28/21 21:00 01/30/21 20:25 Insulin Glargine,Hum.Rec.Anlog 100 Unit/Ml 10 Ml Vial SUBCUT 10 unit BEDTIME AKILA Administration Insulin Human Lispro 0 unit 01/28/21 07:30 01/31/21 11:28 Insulin Lispro 100 Unit/Ml 3 Ml Vial SUBCUT 4 unit QIDACHS AKILA Administration Protocol Oxycodone HCl 5 mg 01/28/21 00:38 01/31/21 08:59 Oxycodone Hcl Immed Release 5 Mg Tablet PO 5 mg Q6H PRN Administration Pain, Moderate (Pain Scale 4-6 Pharmacy Consult 1 each 01/27/21 20:21 Consult Rx Vancomycin Dosing MISCELLANE DAILY PRN Consult order Home Medications Medication Instructions Recorded Confirmed Last Taken Type Lactobacillus rhamnosus GG 1 cap PO DAILY 01/28/21 01/28/21 01/27/21 History [Culturelle] amiodarone 1 tab PO DAILY 01/28/21 01/28/21 01/27/21 History apixaban [Eliquis] 5 mg PO BID 01/28/21 01/28/21 01/27/21 History ascorbic acid (vitamin C) [Vitamin 500 mg PO DAILY 01/28/21 01/28/2121 History C] carvedilol 1 tab PO BID 01/28/21 01/28/21 01/27/21 History carvedilol [Coreg] 3.125 mg PO BID 01/28/21 01/28/21 01/27/21 History ferrous gluconate 324 mg PO DAILY 01/28/21 01/28/21 01/28/21 History insulin glargine [Lantus Solostar 10 unit SUBCUT BEDTIME 01/28/21 01/28/21 01/28/21 History U-100 Insulin] insulin lispro [Humalog U-100 4 unit SUBCUT TID 01/28/21 01/28/21 Unknown History Insulin] magnesium oxide 400 mg PO DAILY 01/28/21 01/28/21 01/27/21 History oxycodone 5 mg PO Q6H PRN 01/28/21 01/28/21 01/27/21 History polyethylene glycol 3350 [Miralax] 17 g PO DAILY 01/28/21 01/28/21 01/27/21 History Exam Exam Date and Time: January 31, 2021 1232 Height,Weight and Vital Signs: Height 6 ft Weight 229 lb 4.492 oz Last Vital Signs Temp 97.8 F 01/31/21 08:00 Pulse 84 01/31/21 11:00 Resp 19 01/31/21 11:00 BP 101/61 01/31/21 11:00 Pulse Ox 92 01/31/21 11:00 Pertinent Lab Results Pertinent Lab Results: Laboratory Tests 01/27/21 01/27/21 01/27/21 20:20 20:20 20:20 WBC 23.9 H RBC 2.89 L Hgb 7.6 L Hct 22.2 L MCV 76.8 L MCH 26.3 L MCHC 34.2 RDW 14.3 Plt Count 219 MPV 9.1 L Immature Gran % (Auto) 1.5 H Neut % (Auto) 90.7 H Lymph % (Auto) 1.5 L [place] % (Auto) 6.2 Eos % (Auto) 0.0 Baso % (Auto) 0.1 Lymph # (Auto) 0.4 L [place] # (Auto) 1.5 H Eos # (Auto) 0.0 Baso # (Auto) 0.0 Abs Immat Gran (auto) 0.36 H Absolute Neuts (auto) 21.7 H Absolute Nucleated RBC 0.000 Nucleated RBC % (auto) 0.0 Neutrophils % (Manual) Band Neutrophils % Lymphocytes % (Manual) Monocytes % (Manual) Metamyelocytes % Abs Neuts (Manual) Lymphocytes # (Manual) Monocytes # (Manual) Metamyelocytes # Toxic Granulation Toxic Vacuolation Dohle Bodies Platelet Estimate Plt Morphology Comment RBC Morphology Hypochromasia Microcytosis Ovalocytes Acanthocytes (Spur) Schistocytes Smear Tech's Comments VERIFIED PT INR APTT VBG pH VBG pCO2 VBG pO2 VBG HCO3 VBG O2 Saturation VBG Base Excess Sodium 121 L Potassium 5.0 Chloride 92 L Carbon Dioxide 20 L Anion Gap 14 BUN 45 H Creatinine 1.94 H Estim Creat Clear Calc 45.5 Estimated GFR 36 POC Glucose Random Glucose 476 H* Lactic Acid 1.6 Calcium 7.8 L Phosphorus Magnesium Total Bilirubin 0.8 Direct Bilirubin 0.6 H AST 16 ALT 17 Alkaline Phosphatase 345 H B-Natriuretic Peptide Total Protein 4.9 L Albumin 2.6 L Urine Color Urine Appearance Urine pH Ur Specific [place] Urine Protein Urine Glucose (UA) Urine Ketones Urine Blood Urine Nitrite Ur Leukocyte Esterase Urine RBC Urine WBC Ur Squamous Epith Cells Amorphous Sediment Urine Bacteria Random Vancomycin COVID-19 (KINGA) COVID-19 Clin Com Blood Type Antibody Screen Crossmatch 01/27/21 01/27/21 01/27/21 20:20 21:28 22:41 WBC RBC Hgb Hct MCV MCH MCHC RDW Plt Count MPV Immature Gran % (Auto) Neut % (Auto) Lymph % (Auto) [place] % (Auto) Eos % (Auto) Baso % (Auto) Lymph # (Auto) [place] # (Auto) Eos # (Auto) Baso # (Auto) Abs Immat Gran (auto) Absolute Neuts (auto) Absolute Nucleated RBC Nucleated RBC % (auto) Neutrophils % (Manual) Band Neutrophils % Lymphocytes % (Manual) Monocytes % (Manual) Metamyelocytes % Abs Neuts (Manual) Lymphocytes # (Manual) Monocytes # (Manual) Metamyelocytes # Toxic Granulation Toxic Vacuolation Dohle Bodies Platelet Estimate Plt Morphology Comment RBC Morphology Hypochromasia Microcytosis Ovalocytes Acanthocytes (Spur) Schistocytes Smear Tech's Comments PT INR APTT VBG pH VBG pCO2 VBG pO2 VBG HCO3 VBG O2 Saturation VBG Base Excess Sodium Potassium Chloride Carbon Dioxide Anion Gap BUN Creatinine Estim Creat Clear Calc Estimated GFR POC Glucose 371 H* Random Glucose Lactic Acid Calcium Phosphorus Magnesium Total Bilirubin Direct Bilirubin AST ALT Alkaline Phosphatase B-Natriuretic Peptide Total Protein Albumin Urine Color YELLOW Urine Appearance CLEAR Urine pH 5.5 Ur Specific [place] 1.020 Urine Protein 1+ H Urine Glucose (UA) >=1000 H Urine Ketones 5 Urine Blood TRACE Urine Nitrite NEG Ur Leukocyte Esterase NEG Urine RBC 1-4 Urine WBC 0 Ur Squamous Epith Cells 2+ Amorphous Sediment 2+ Urine Bacteria 1+ Random Vancomycin COVID-19 (KINGA) Negative COVID-19 Clin Com See Note Blood Type Antibody Screen Crossmatch 01/28/21 01/28/21 01/28/21 00:31 00:31 00:31 WBC 23.1 H RBC 3.05 L Hgb 7.9 L Hct 23.5 L MCV 77.0 L MCH 25.9 L MCHC 33.6 RDW 14.3 Plt Count 219 MPV 9.0 L Immature Gran % (Auto) Cancelled Neut % (Auto) Cancelled Lymph % (Auto) Cancelled [place] % (Auto) Cancelled Eos % (Auto) Cancelled Baso % (Auto) Cancelled Lymph # (Auto) Cancelled [place] # (Auto) Cancelled Eos # (Auto) Cancelled Baso # (Auto) Cancelled Abs Immat Gran (auto) Cancelled Absolute Neuts (auto) Cancelled Absolute Nucleated RBC 0.000 Nucleated RBC % (auto) 0.0 Neutrophils % (Manual) 85 H Band Neutrophils % 9 H Lymphocytes % (Manual) 2 L Monocytes % (Manual) 3 Metamyelocytes % 1 Abs Neuts (Manual) 21.7 H Lymphocytes # (Manual) 0.5 L Monocytes # (Manual) 0.7 Metamyelocytes # 0.2 Toxic Granulation Toxic Vacuolation Dohle Bodies PRESENT Platelet Estimate NORMAL Plt Morphology Comment NORMAL RBC Morphology NOTED Hypochromasia 1+ (5-14) Microcytosis Ovalocytes Acanthocytes (Spur) Schistocytes 1+ (0-2) Smear Tech's Comments PT 24.4 H INR 2.0 H APTT 34.1 VBG pH VBG pCO2 VBG pO2 VBG HCO3 VBG O2 Saturation VBG Base Excess Sodium 123 L Potassium 4.7 Chloride 94 L Carbon Dioxide 21 L Anion Gap 13 BUN 45 H Creatinine 2.16 H Estim Creat Clear Calc 45.7 Estimated GFR 32 POC Glucose Random Glucose 313 H Lactic Acid Calcium 8.4 D Phosphorus 2.1 L Magnesium 1.6 Total Bilirubin 0.9 Direct Bilirubin AST 15 ALT 18 Alkaline Phosphatase 343 H B-Natriuretic Peptide Total Protein 5.8 L Albumin 2.8 L Urine Color Urine Appearance Urine pH Ur Specific [place] Urine Protein Urine Glucose (UA) Urine Ketones Urine Blood Urine Nitrite Ur Leukocyte Esterase Urine RBC Urine WBC Ur Squamous Epith Cells Amorphous Sediment Urine Bacteria Random Vancomycin COVID-19 ([facility]A) COVID-19 [facility] Com Blood Type Antibody Screen Crossmatch 01/28/21 01/28/21 01/28/21 00:31 00:33 02:07 WBC RBC Hgb Hct MCV MCH MCHC RDW Plt Count MPV Immature Gran % (Auto) Neut % (Auto) Lymph % (Auto) [place] % (Auto) Eos % (Auto) Baso % (Auto) Lymph # (Auto) [place] # (Auto) Eos # (Auto) Baso # (Auto) Abs Immat Gran (auto) Absolute Neuts (auto) Absolute Nucleated RBC Nucleated RBC % (auto) Neutrophils % (Manual) Band Neutrophils % Lymphocytes % (Manual) Monocytes % (Manual) Metamyelocytes % Abs Neuts (Manual) Lymphocytes # (Manual) Monocytes # (Manual) Metamyelocytes # Toxic Granulation Toxic Vacuolation Dohle Bodies Platelet Estimate Plt Morphology Comment RBC Morphology Hypochromasia Microcytosis Ovalocytes Acanthocytes (Spur) Schistocytes Smear Tech's Comments PT INR APTT VBG pH 7.34 VBG pCO2 38 VBG pO2 49 VBG HCO3 21 L VBG O2 Saturation 76.0 VBG Base Excess -4.0 Sodium Potassium Chloride Carbon Dioxide Anion Gap BUN Creatinine Estim Creat Clear Calc Estimated GFR POC Glucose 329 H Random Glucose Lactic Acid Calcium Phosphorus Magnesium Total Bilirubin Direct Bilirubin AST ALT Alkaline Phosphatase B-Natriuretic Peptide 1429 H Total Protein Albumin Urine Color Urine Appearance Urine pH Ur Specific [place] Urine Protein Urine Glucose (UA) Urine Ketones Urine Blood Urine Nitrite Ur Leukocyte Esterase Urine RBC Urine WBC Ur Squamous Epith Cells Amorphous Sediment Urine Bacteria Random Vancomycin COVID-19 ([facility]A) COVID-19 [facility] Com Blood Type Antibody Screen Crossmatch 01/28/21 01/28/21 01/28/21 05:12 05:12 05:12 WBC 26.2 H RBC 3.32 L Hgb 8.6 L Hct 25.9 L MCV 78.0 L MCH 25.9 L MCHC 33.2 RDW 14.4 Plt Count 249 MPV 9.0 L Immature Gran % (Auto) Cancelled Neut % (Auto) Cancelled Lymph % (Auto) Cancelled [place] % (Auto) Cancelled Eos % (Auto) Cancelled Baso % (Auto) Cancelled Lymph # (Auto) Cancelled [place] # (Auto) Cancelled Eos # (Auto) Cancelled Baso # (Auto) Cancelled Abs Immat Gran (auto) Cancelled Absolute Neuts (auto) Cancelled Absolute Nucleated RBC 0.000 Nucleated RBC % (auto) 0.0 Neutrophils % (Manual) 85 H Band Neutrophils % 12 H Lymphocytes % (Manual) Monocytes % (Manual) 3 Metamyelocytes % Abs Neuts (Manual) 25.4 H Lymphocytes # (Manual) Monocytes # (Manual) 0.8 Metamyelocytes # Toxic Granulation Toxic Vacuolation PRESENT Dohle Bodies PRESENT Platelet Estimate NORMAL Plt Morphology Comment NORMAL RBC Morphology NOTED Hypochromasia Microcytosis 1+ (5-14) Ovalocytes 1+ (5-14) Acanthocytes (Spur) 1+ (0-2) Schistocytes Smear Tech's Comments PT 22.2 H INR 1.9 H APTT 31.4 VBG pH VBG pCO2 VBG pO2 VBG HCO3 VBG O2 Saturation VBG Base Excess Sodium 124 L Potassium 4.6 Chloride 94 L Carbon Dioxide 20 L Anion Gap 15 BUN 46 H Creatinine 1.94 H Estim Creat Clear Calc 50.8 Estimated GFR 36 POC Glucose Random Glucose 250 H Lactic Acid Calcium 8.4 Phosphorus 2.0 L Magnesium 1.5 L Total Bilirubin 1.0 Direct Bilirubin AST 15 ALT 19 Alkaline Phosphatase 340 H B-Natriuretic Peptide Total Protein 5.4 L Albumin 2.8 L Urine Color Urine Appearance Urine pH Ur Specific [place] Urine Protein Urine Glucose (UA) Urine Ketones Urine Blood Urine Nitrite Ur Leukocyte Esterase Urine RBC Urine WBC Ur Squamous Epith Cells Amorphous Sediment Urine Bacteria Random Vancomycin COVID-19 ([facility]A) COVID-19 Clin Com Blood Type Antibody Screen Crossmatch 01/28/21 01/28/21 01/28/21 05:12 05:16 05:37 WBC RBC Hgb Hct MCV MCH MCHC RDW Plt Count MPV Immature Gran % (Auto) Neut % (Auto) Lymph % (Auto) [place] % (Auto) Eos % (Auto) Baso % (Auto) Lymph # (Auto) [place] # (Auto) Eos # (Auto) Baso # (Auto) Abs Immat Gran (auto) Absolute Neuts (auto) Absolute Nucleated RBC Nucleated RBC % (auto) Neutrophils % (Manual) Band Neutrophils % Lymphocytes % (Manual) Monocytes % (Manual) Metamyelocytes % Abs Neuts (Manual) Lymphocytes # (Manual) Monocytes # (Manual) Metamyelocytes # Toxic Granulation Toxic Vacuolation Dohle Bodies Platelet Estimate Plt Morphology Comment RBC Morphology Hypochromasia Microcytosis Ovalocytes Acanthocytes (Spur) Schistocytes Smear Tech's Comments PT INR APTT VBG pH 7.43 VBG pCO2 30 VBG pO2 83 VBG HCO3 20 L VBG O2 Saturation 96.0 VBG Base Excess -2.6 Sodium Potassium Chloride Carbon Dioxide Anion Gap BUN Creatinine Estim Creat Clear Calc Estimated GFR POC Glucose 239 H Random Glucose Lactic Acid Calcium Phosphorus Magnesium Total Bilirubin Direct Bilirubin AST ALT Alkaline Phosphatase B-Natriuretic Peptide 1469 H Total Protein Albumin Urine Color Urine Appearance Urine pH Ur Specific [place] Urine Protein Urine Glucose (UA) Urine Ketones Urine Blood Urine Nitrite Ur Leukocyte Esterase Urine RBC Urine WBC Ur Squamous Epith Cells Amorphous Sediment Urine Bacteria Random Vancomycin COVID-19 ([facility]) COVID-19 Clin Com Blood Type Antibody Screen Crossmatch 01/28/21 01/28/21 01/28/21 07:50 11:43 16:34 WBC RBC Hgb Hct MCV MCH MCHC RDW Plt Count MPV Immature Gran % (Auto) Neut % (Auto) Lymph % (Auto) [place] % (Auto) Eos % (Auto) Baso % (Auto) Lymph # (Auto) [place] # (Auto) Eos # (Auto) Baso # (Auto) Abs Immat Gran (auto) Absolute Neuts (auto) Absolute Nucleated RBC Nucleated RBC % (auto) Neutrophils % (Manual) Band Neutrophils % Lymphocytes % (Manual) Monocytes % (Manual) Metamyelocytes % Abs Neuts (Manual) Lymphocytes # (Manual) Monocytes # (Manual) Metamyelocytes # Toxic Granulation Toxic Vacuolation Dohle Bodies Platelet Estimate Plt Morphology Comment RBC Morphology Hypochromasia Microcytosis Ovalocytes Acanthocytes (Spur) Schistocytes Smear Tech's Comments PT INR APTT VBG pH VBG pCO2 VBG pO2 VBG HCO3 VBG O2 Saturation VBG Base Excess Sodium Potassium Chloride Carbon Dioxide Anion Gap BUN Creatinine Estim Creat Clear Calc Estimated GFR POC Glucose 221 H 248 H 277 H Random Glucose Lactic Acid Calcium Phosphorus Magnesium Total Bilirubin Direct Bilirubin AST ALT Alkaline Phosphatase B-Natriuretic Peptide Total Protein Albumin Urine Color Urine Appearance Urine pH Ur Specific [place] Urine Protein Urine Glucose (UA) Urine Ketones Urine Blood Urine Nitrite Ur Leukocyte Esterase Urine RBC Urine WBC Ur Squamous Epith Cells Amorphous Sediment Urine Bacteria Random Vancomycin COVID-19 ([facility]A) COVID-19 Clin Com Blood Type Antibody Screen Crossmatch 01/28/21 01/29/21 01/29/21 20:23 05:25 05:26 WBC 31.9 H* RBC 3.29 L Hgb 8.6 L Hct 25.2 L MCV 76.6 L MCH 26.1 L MCHC 34.1 RDW 14.7 Plt Count 340 D MPV 8.7 L Immature Gran % (Auto) Cancelled Neut % (Auto) Cancelled Lymph % (Auto) Cancelled [place] % (Auto) Cancelled Eos % (Auto) Cancelled Baso % (Auto) Cancelled Lymph # (Auto) Cancelled [place] # (Auto) Cancelled Eos # (Auto) Cancelled Baso # (Auto) Cancelled Abs Immat Gran (auto) Cancelled Absolute Neuts (auto) Cancelled Absolute Nucleated RBC 0.000 Nucleated RBC % (auto) 0.0 Neutrophils % (Manual) 87 H Band Neutrophils % 10 H Lymphocytes % (Manual) 1 L Monocytes % (Manual) 2 Metamyelocytes % Abs Neuts (Manual) 30.9 H Lymphocytes # (Manual) 0.3 L Monocytes # (Manual) 0.6 Metamyelocytes # Toxic Granulation PRESENT Toxic Vacuolation PRES Dohle Bodies PRESENT Platelet Estimate NORMAL Plt Morphology Comment NORMAL RBC Morphology NOTED Hypochromasia Microcytosis Ovalocytes 1+ (5-14) Acanthocytes (Spur) 1+ (0-2) Schistocytes Smear Tech's Comments PT INR APTT VBG pH VBG pCO2 VBG pO2 VBG HCO3 VBG O2 Saturation VBG Base Excess Sodium Potassium Chloride Carbon Dioxide Anion Gap BUN Creatinine Estim Creat Clear Calc Estimated GFR POC Glucose 331 H Random Glucose Lactic Acid Calcium Phosphorus Magnesium Total Bilirubin 1.3 H Direct Bilirubin 1.1 H AST 17 ALT 19 Alkaline Phosphatase 321 H B-Natriuretic Peptide Total Protein 5.1 L Albumin 2.6 L Urine Color Urine Appearance Urine pH Ur Specific [place] Urine Protein Urine Glucose (UA) Urine Ketones Urine Blood Urine Nitrite Ur Leukocyte Esterase Urine RBC Urine WBC Ur Squamous Epith Cells Amorphous Sediment Urine Bacteria Random Vancomycin COVID-19 ([facility]A) COVID-19 Clin Com Blood Type Antibody Screen Crossmatch 01/29/21 01/29/21 01/29/21 05:26 05:26 05:26 WBC RBC Hgb Hct MCV MCH MCHC RDW Plt Count MPV Immature Gran % (Auto) Neut % (Auto) Lymph % (Auto) [place] % (Auto) Eos % (Auto) Baso % (Auto) Lymph # (Auto) [place] # (Auto) Eos # (Auto) Baso # (Auto) Abs Immat Gran (auto) Absolute Neuts (auto) Absolute Nucleated RBC Nucleated RBC % (auto) Neutrophils % (Manual) Band Neutrophils % Lymphocytes % (Manual) Monocytes % (Manual) Metamyelocytes % Abs Neuts (Manual) Lymphocytes # (Manual) Monocytes # (Manual) Metamyelocytes # Toxic Granulation Toxic Vacuolation Dohle Bodies Platelet Estimate Plt Morphology Comment RBC Morphology Hypochromasia Microcytosis Ovalocytes Acanthocytes (Spur) Schistocytes Smear Tech's Comments PT 20.3 H INR 1.7 H APTT 29.8 VBG pH VBG pCO2 VBG pO2 VBG HCO3 VBG O2 Saturation VBG Base Excess Sodium 124 L Potassium 5.1 Chloride 96 Carbon Dioxide 19 L Anion Gap 14 BUN 49 H Creatinine 1.39 Estim Creat Clear Calc 70.3 Estimated GFR 52 POC Glucose Random Glucose 296 H Lactic Acid Calcium 8.2 L Phosphorus 2.3 L Magnesium 1.7 Total Bilirubin Direct Bilirubin AST ALT Alkaline Phosphatase B-Natriuretic Peptide 2020 H Total Protein Albumin Urine Color Urine Appearance Urine pH Ur Specific [place] Urine Protein Urine Glucose (UA) Urine Ketones Urine Blood Urine Nitrite Ur Leukocyte Esterase Urine RBC Urine WBC Ur Squamous Epith Cells Amorphous Sediment Urine Bacteria Random Vancomycin COVID-19 ([facility]A) COVID-19 Clin Com Blood Type Antibody Screen Crossmatch 01/29/21 01/29/21 01/29/21 05:30 07:14 11:28 WBC RBC Hgb Hct MCV MCH MCHC RDW Plt Count MPV Immature Gran % (Auto) Neut % (Auto) Lymph % (Auto) [place] % (Auto) Eos % (Auto) Baso % (Auto) Lymph # (Auto) [place] # (Auto) Eos # (Auto) Baso # (Auto) Abs Immat Gran (auto) Absolute Neuts (auto) Absolute Nucleated RBC Nucleated RBC % (auto) Neutrophils % (Manual) Band Neutrophils % Lymphocytes % (Manual) Monocytes % (Manual) Metamyelocytes % Abs Neuts (Manual) Lymphocytes # (Manual) Monocytes # (Manual) Metamyelocytes # Toxic Granulation Toxic Vacuolation Dohle Bodies Platelet Estimate Plt Morphology Comment RBC Morphology Hypochromasia Microcytosis Ovalocytes Acanthocytes (Spur) Schistocytes Smear Tech's Comments PT INR APTT VBG pH 7.40 VBG pCO2 33 VBG pO2 44 VBG HCO3 21 L VBG O2 Saturation 73.0 VBG Base Excess -3.0 Sodium Potassium Chloride Carbon Dioxide Anion Gap BUN Creatinine Estim Creat Clear Calc Estimated GFR POC Glucose 269 H 288 H Random Glucose Lactic Acid Calcium Phosphorus Magnesium Total Bilirubin Direct Bilirubin AST ALT Alkaline Phosphatase B-Natriuretic Peptide Total Protein Albumin Urine Color Urine Appearance Urine pH Ur Specific [place] Urine Protein Urine Glucose (UA) Urine Ketones Urine Blood Urine Nitrite Ur Leukocyte Esterase Urine RBC Urine WBC Ur Squamous Epith Cells Amorphous Sediment Urine Bacteria Random Vancomycin COVID-19 ([facility]A) COVID-19 Clin Com Blood Type Antibody Screen Crossmatch 01/29/21 01/29/21 01/29/21 16:32 19:07 20:39 WBC RBC Hgb Hct MCV MCH MCHC RDW Plt Count MPV Immature Gran % (Auto) Neut % (Auto) Lymph % (Auto) [place] % (Auto) Eos % (Auto) Baso % (Auto) Lymph # (Auto) [place] # (Auto) Eos # (Auto) Baso # (Auto) Abs Immat Gran (auto) Absolute Neuts (auto) Absolute Nucleated RBC Nucleated RBC % (auto) Neutrophils % (Manual) Band Neutrophils % Lymphocytes % (Manual) Monocytes % (Manual) Metamyelocytes % Abs Neuts (Manual) Lymphocytes # (Manual) Monocytes # (Manual) Metamyelocytes # Toxic Granulation Toxic Vacuolation Dohle Bodies Platelet Estimate Plt Morphology Comment RBC Morphology Hypochromasia Microcytosis Ovalocytes Acanthocytes (Spur) Schistocytes Smear Tech's Comments PT INR APTT VBG pH VBG pCO2 VBG pO2 VBG HCO3 VBG O2 Saturation VBG Base Excess Sodium Potassium Chloride Carbon Dioxide Anion Gap BUN Creatinine Estim Creat Clear Calc Estimated GFR POC Glucose 280 H 255 H Random Glucose Lactic Acid Calcium Phosphorus Magnesium Total Bilirubin Direct Bilirubin AST ALT Alkaline Phosphatase B-Natriuretic Peptide Total Protein Albumin Urine Color Urine Appearance Urine pH Ur Specific [place] Urine Protein Urine Glucose (UA) Urine Ketones Urine Blood Urine Nitrite Ur Leukocyte Esterase Urine RBC Urine WBC Ur Squamous Epith Cells Amorphous Sediment Urine Bacteria Random Vancomycin 11.6 L COVID-19 ([facility]) COVID-19 Clin Com Blood Type Antibody Screen Crossmatch 01/30/21 01/30/21 01/30/21 05:11 05:12 05:12 WBC 20.6 H RBC 3.07 L Hgb 7.8 L Hct 23.7 L MCV 77.2 L MCH 25.4 L MCHC 32.9 RDW 15.1 Plt Count 260 MPV 8.6 L Immature Gran % (Auto) Cancelled Neut % (Auto) Cancelled Lymph % (Auto) Cancelled [place] % (Auto) Cancelled Eos % (Auto) Cancelled Baso % (Auto) Cancelled Lymph # (Auto) Cancelled [place] # (Auto) Cancelled Eos # (Auto) Cancelled Baso # (Auto) Cancelled Abs Immat Gran (auto) Cancelled Absolute Neuts (auto) Cancelled Absolute Nucleated RBC 0.000 Nucleated RBC % (auto) 0.0 Neutrophils % (Manual) 88 H Band Neutrophils % 9 H Lymphocytes % (Manual) 1 L Monocytes % (Manual) 2 Metamyelocytes % Abs Neuts (Manual) 20.0 H Lymphocytes # (Manual) 0.2 L Monocytes # (Manual) 0.4 Metamyelocytes # Toxic Granulation Toxic Vacuolation PRESENT Dohle Bodies PRESENT Platelet Estimate NORMAL Plt Morphology Comment NORMAL RBC Morphology NOTED Hypochromasia Microcytosis 1+ (5-14) Ovalocytes 1+ (5-14) Acanthocytes (Spur) 1+ (0-2) Schistocytes 1+ (0-2) Smear Tech's Comments PT 20.2 H INR 1.7 H APTT 28.7 VBG pH VBG pCO2 VBG pO2 VBG HCO3 VBG O2 Saturation VBG Base Excess Sodium 128 L Potassium 4.5 Chloride 100 Carbon Dioxide 20 L Anion Gap 13 BUN 54 H Creatinine 1.40 Estim Creat Clear Calc 69.7 Estimated GFR 52 POC Glucose Random Glucose 251 H Lactic Acid Calcium 8.1 L Phosphorus 2.4 L Magnesium 1.8 Total Bilirubin 1.5 H Direct Bilirubin 1.2 H AST 17 ALT 19 Alkaline Phosphatase 304 H B-Natriuretic Peptide Total Protein 4.6 L Albumin 2.3 L Urine Color Urine Appearance Urine pH Ur Specific [place] Urine Protein Urine Glucose (UA) Urine Ketones Urine Blood Urine Nitrite Ur Leukocyte Esterase Urine RBC Urine WBC Ur Squamous Epith Cells Amorphous Sediment Urine Bacteria Random Vancomycin COVID-19 ([facility]A) COVID-19 [facility] Blood Type Antibody Screen Crossmatch 01/30/21 01/30/21 01/30/21 05:12 05:18 07:43 WBC RBC Hgb Hct MCV MCH MCHC RDW Plt Count MPV Immature Gran % (Auto) Neut % (Auto) Lymph % (Auto) [place] % (Auto) Eos % (Auto) Baso % (Auto) Lymph # (Auto) [place] # (Auto) Eos # (Auto) Baso # (Auto) Abs Immat Gran (auto) Absolute Neuts (auto) Absolute Nucleated RBC Nucleated RBC % (auto) Neutrophils % (Manual) Band Neutrophils % Lymphocytes % (Manual) Monocytes % (Manual) Metamyelocytes % Abs Neuts (Manual) Lymphocytes # (Manual) Monocytes # (Manual) Metamyelocytes # Toxic Granulation Toxic Vacuolation Dohle Bodies Platelet Estimate Plt Morphology Comment RBC Morphology Hypochromasia Microcytosis Ovalocytes Acanthocytes (Spur) Schistocytes Smear Tech's Comments PT INR APTT VBG pH 7.41 VBG pCO2 32 VBG pO2 113 VBG HCO3 20 L VBG O2 Saturation 98.0 VBG Base Excess -3.2 Sodium Potassium Chloride Carbon Dioxide Anion Gap BUN Creatinine Estim Creat Clear Calc Estimated GFR POC Glucose 237 H Random Glucose Lactic Acid Calcium Phosphorus Magnesium Total Bilirubin Direct Bilirubin AST ALT Alkaline Phosphatase B-Natriuretic Peptide 1667 H Total Protein Albumin Urine Color Urine Appearance Urine pH Ur Specific [place] Urine Protein Urine Glucose (UA) Urine Ketones Urine Blood Urine Nitrite Ur Leukocyte Esterase Urine RBC Urine WBC Ur Squamous Epith Cells Amorphous Sediment Urine Bacteria Random Vancomycin COVID-19 (KINGA) COVID-19 Execution [facility] Blood Type Antibody Screen Crossmatch 01/30/21 01/30/21 01/30/21 09:43 12:47 17:08 WBC RBC Hgb Hct MCV MCH MCHC RDW Plt Count MPV Immature Gran % (Auto) Neut % (Auto) Lymph % (Auto) [place] % (Auto) Eos % (Auto) Baso % (Auto) Lymph # (Auto) [place] # (Auto) Eos # (Auto) Baso # (Auto) Abs Immat Gran (auto) Absolute Neuts (auto) Absolute Nucleated RBC Nucleated RBC % (auto) Neutrophils % (Manual) Band Neutrophils % Lymphocytes % (Manual) Monocytes % (Manual) Metamyelocytes % Abs Neuts (Manual) Lymphocytes # (Manual) Monocytes # (Manual) Metamyelocytes # Toxic Granulation Toxic Vacuolation Dohle Bodies Platelet Estimate Plt Morphology Comment RBC Morphology Hypochromasia Microcytosis Ovalocytes Acanthocytes (Spur) Schistocytes Smear Tech's Comments PT INR APTT VBG pH VBG pCO2 VBG pO2 VBG HCO3 VBG O2 Saturation VBG Base Excess Sodium Potassium Chloride Carbon Dioxide Anion Gap BUN Creatinine Estim Creat Clear Calc Estimated GFR POC Glucose 240 H 228 H Random Glucose Lactic Acid Calcium Phosphorus Magnesium Total Bilirubin Direct Bilirubin AST ALT Alkaline Phosphatase B-Natriuretic Peptide Total Protein Albumin Urine Color Urine Appearance Urine pH Ur Specific [place] Urine Protein Urine Glucose (UA) Urine Ketones Urine Blood Urine Nitrite Ur Leukocyte Esterase Urine RBC Urine WBC Ur Squamous Epith Cells Amorphous Sediment Urine Bacteria Random Vancomycin COVID-19 (KINGA) COVID-19 Clin Com Blood Type O Positive Antibody Screen NEGATIVE Crossmatch See Detail 01/30/21 01/31/21 01/31/21 20:18 05:21 05:21 WBC 16.7 H RBC 3.01 L Hgb 7.9 L Hct 23.7 L MCV 78.7 L MCH 26.2 L MCHC 33.3 RDW 15.6 Plt Count 218 MPV 8.6 L Immature Gran % (Auto) 2.7 H Neut % (Auto) 89.2 H Lymph % (Auto) 2.6 L [place] % (Auto) 5.0 Eos % (Auto) 0.4 Baso % (Auto) 0.1 Lymph # (Auto) 0.4 L [place] # (Auto) 0.8 Eos # (Auto) 0.1 Baso # (Auto) 0.0 Abs Immat Gran (auto) 0.45 H Absolute Neuts (auto) 14.9 H Absolute Nucleated RBC 0.000 Nucleated RBC % (auto) 0.0 Neutrophils % (Manual) Band Neutrophils % Lymphocytes % (Manual) Monocytes % (Manual) Metamyelocytes % Abs Neuts (Manual) Lymphocytes # (Manual) Monocytes # (Manual) Metamyelocytes # Toxic Granulation Toxic Vacuolation Dohle Bodies Platelet Estimate Plt Morphology Comment RBC Morphology Hypochromasia Microcytosis Ovalocytes Acanthocytes (Spur) Schistocytes Smear Tech's Comments VERIFIED PT INR APTT VBG pH VBG pCO2 VBG pO2 VBG HCO3 VBG O2 Saturation VBG Base Excess Sodium 131 L Potassium 4.4 Chloride 101 Carbon Dioxide 19 L Anion Gap 15 BUN 59 H Creatinine 1.52 H Estim Creat Clear Calc 64.4 Estimated GFR 47 POC Glucose 233 H Random Glucose 235 H Lactic Acid Calcium 8.2 L Phosphorus 2.8 Magnesium 2.0 Total Bilirubin 2.5 H Direct Bilirubin AST 19 ALT 14 Alkaline Phosphatase 272 H B-Natriuretic Peptide Total Protein 5.0 L Albumin 2.8 L D Urine Color Urine Appearance Urine pH Ur Specific [place] Urine Protein Urine Glucose (UA) Urine Ketones Urine Blood Urine Nitrite Ur Leukocyte Esterase Urine RBC Urine WBC Ur Squamous Epith Cells Amorphous Sediment Urine Bacteria Random Vancomycin COVID-19 (KINGA) COVID-19 Execution [facility] Com Blood Type Antibody Screen Crossmatch 01/31/21 01/31/21 07:25 11:18 WBC RBC Hgb Hct MCV MCH MCHC RDW Plt Count MPV Immature Gran % (Auto) Neut % (Auto) Lymph % (Auto) [place] % (Auto) Eos % (Auto) Baso % (Auto) Lymph # (Auto) [place] # (Auto) Eos # (Auto) Baso # (Auto) Abs Immat Gran (auto) Absolute Neuts (auto) Absolute Nucleated RBC Nucleated RBC % (auto) Neutrophils % (Manual) Band Neutrophils % Lymphocytes % (Manual) Monocytes % (Manual) Metamyelocytes % Abs Neuts (Manual) Lymphocytes # (Manual) Monocytes # (Manual) Metamyelocytes # Toxic Granulation Toxic Vacuolation Dohle Bodies Platelet Estimate Plt Morphology Comment RBC Morphology Hypochromasia Microcytosis Ovalocytes Acanthocytes (Spur) Schistocytes Smear Tech's Comments PT INR APTT VBG pH VBG pCO2 VBG pO2 VBG HCO3 VBG O2 Saturation VBG Base Excess Sodium Potassium Chloride Carbon Dioxide Anion Gap BUN Creatinine Estim Creat Clear Calc Estimated GFR POC Glucose 226 H 204 H Random Glucose Lactic Acid Calcium Phosphorus Magnesium Total Bilirubin Direct Bilirubin AST ALT Alkaline Phosphatase B-Natriuretic Peptide Total Protein Albumin Urine Color Urine Appearance Urine pH Ur Specific [place] Urine Protein Urine Glucose (UA) Urine Ketones Urine Blood Urine Nitrite Ur Leukocyte Esterase Urine RBC Urine WBC Ur Squamous Epith Cells Amorphous Sediment Urine Bacteria Random Vancomycin COVID-19 (KINGA) COVID-19 [facility]ution [facility] Com Blood Type Antibody Screen Crossmatch Airway Mallampati Class: II TM Dist: >3cm Neck ROM: Full Adult Head Mouth w/Numbe Teeth: 1. Loose 2. Loose 3. Loose 4. Loose 5. Loose Loose/Missing/Broken Teeth: Yes Assessment and Plan Assessment Anesthesia Assessment: Anesthesia Plan Discussed and Chart Reviewed Final Anesthetic Review NPO: Yes ASA Class: III Final Preanesthetic Review: No Changes in Pt Med Stat, Meds/Allgs Chart Reviewed, Consent Obtained/Reviewed and Anes Risks/Benef Reviewed Patient Risk: High Procedure Risk: Intermediate Anesthetic Plan Anesthetic Plan: GA Disposition: Standard PACU
--- NOTE | 2021-01-31 13:56 | MHC.CLN ---
RE: CONSULT PT IS CURRENTLY NPO PT WITH INCREASED NUTRITION RISK R/T DEBRIDEMENT AND DM ULCER WHEN DIET TO ADVANCE RECOMMEND 2000DM DIET SEE ALSO CLINICAL NUTRITION ASSESSMENT
--- NOTE | 2021-01-31 14:09 | HO.POSTANES ---
Post Anesthesia Evaluation Post Anesthesia Evaluation Vital Signs: Vital Signs Temp Pulse Resp BP Pulse Ox 01/31/21 11:00 84 19 101/61 92 01/31/21 10:00 81 20 95/58 L 95 01/31/21 09:00 81 19 94/62 93 01/31/21 08:00 97.8 F 87 18 101/59 L 94 01/31/21 07:00 86 15 99/67 94 01/31/21 06:00 85 20 100/62 92 01/31/21 05:00 91 16 100/65 95 01/31/21 04:00 90 20 106/62 96 01/31/21 03:00 92 16 111/68 95 Anesthesia: General Mental Status: Awake Pain Control: Satisfactory Nausea/Vomiting: None Hydration: Adequate Anesthesia-Related Issues: No Anes. Related Issues
--- NOTE | 2021-01-31 14:36 | P.OP_ITS ---
Operative Note Operative Note Date of Service: 01/31/21 Narrative: Preoperative diagnosis: Left leg necrotizing fasciitis Postoperative diagnosis: Same with chronic skin changes left calf Procedure: Debridement left leg, above knee amputation left leg Surgeon: Sunil Leong MD Diesel Roller Operator: No physician Anesthesia: General endotracheal Indications for procedure: 60-year-old male patient presenting with a chronic ulcer of the left foot subsequently developing a necrotic ulcer in the left leg, status post debridement in the OR yesterday. Patient was found to have a wide area of necrotizing fasciitis extending to the knee. He returns today for second-look debridement and possible above knee amputation. Operative findings: Large area of necrotic skin noted in the posterior calf with extensive fascial necrosis. No new abscess collection could be identified. Above the amputation was performed in a fluid collection identified in the lateral thigh. Muscle was edematous but viable. No evidence of skin abscess or necrosis. Specimen: Left above knee amputation Estimated blood loss: 200 mL Complications: None Procedure details: Patient was brought to the OR and placed in a supine position. After administering general anesthesia the patient's left leg was prepped with Betadine and draped in a sterile fashion. A surgical time-out was called the consent confirmed. Patient received preoperative antibiotics. A fishmouth type incision was then created with a scalpel and carried down through subcutaneous tissue using electrocautery. Hemostasis was assured using electrocautery. The saphenous vein was encountered and ligated with 2-0 silk ties. Dissection was continued down through muscle to the distal femur. Dissection was continued around. The superficial femoral vessels were encountered ligated and divided. Popliteal artery and vein were also encountered, ligated and divided with 0 silk ties. Femoral nerve was also identified, ligated with a 0 silk tie and divided. The remaining muscles were divided with electrocautery. Hemostasis was assured all times is letter cautery. The bone saw was then used to divide the femur approximately 3 cm above the incision. Bone wax was placed to stop any marrow bleeding. The wounds were thoroughly irrigated with saline solution and suctioned dry. Wounds were again checked for hemostasis. During the dissection a small fluid collection was identified in the lateral portion of the left leg which was cloudy and yellow. A a specimen is sent for wound culture. Fascia and dermis were then reapproximated using interrupted 2 0 Polysorb sutures. Skin was closed using skin cary. Sterile dressings were then applied with Xeroform, fluffed gauze, ABDs, Kerlix and Neftali bandage. The patient tolerated the procedure well. Sponge, instrument, needle counts were reported as correct. He was transferred back to the ICU in stable condition.
--- NOTE | 2021-01-31 14:45 | PM.CCPN ---
Subjective Subjective Date of Service: 01/31/21 Interval History: 60-year-old gentleman with underlying history of diabetes mellitus, AFib on Eliquis, hypertension, cardiomyopathy, Tourette's, right TMA, left heel also admitted on 01/28 with sepsis with soft tissue source. Patient has been treated with broad-spectrum antibiotics and required vasopressor support. On 01/30/2021 general surgery debridement in the OR was consistent with necrotizing fasciitis. Patient return to or on 01/31/2021 for definitive debridement which demonstrated nonviable tissue and left above the knee amputation was performed. Critical Care Time (minutes): 45 Physical Exam Vital Signs: Vital Signs: Last Vital Signs Temp 97.8 F 01/31/21 08:00 Pulse 84 01/31/21 11:00 Resp 19 01/31/21 11:00 BP 101/61 01/31/21 11:00 Pulse Ox 92 01/31/21 11:00 Body Mass Index 31.1 Const: General: no acute distress and lethargic (But arousable) Orientation/consciousness: lethargic (But arousable) Eyes: Sclerae: sclerae normal EOM: EOMs intact bilaterally Neck: Neck: Yes no lymphadenopathy, Yes trachea midline and Yes supple Resp: Effort & Inspection: normal respiratory effort and no respiratory distress Auscultation: clear to auscultation bilaterally Cardio: Rate: regular rate Rhythm: regular rhythm Heart sounds: no gallops, no murmurs and no rubs GI: Palpation (GI): Soft to palpation and Other GI palpation findings present ( Nontender) Auscultation: normal bowel sounds Extrem: General: Yes no pedal edema, No clubbing, No cyanosis and Yes other (Right TMA, left AKA) Objective Data Labs CBC & Chem 7: 01/31/21 05:21 01/31/21 05:21 Labs: Laboratory Results - last 24 hr 01/30/21 01/30/21 01/30/21 09:43 17:08 20:18 WBC RBC Hgb Hct MCV MCH MCHC RDW Plt Count MPV Immature Gran % (Auto) Neut % (Auto) Lymph % (Auto) [place] % (Auto) Eos % (Auto) Baso % (Auto) Lymph # (Auto) [place] # (Auto) Eos # (Auto) Baso # (Auto) Abs Immat Gran (auto) Absolute Neuts (auto) Absolute Nucleated RBC Nucleated RBC % (auto) Smear Tech's Comments Sodium Potassium Chloride Carbon Dioxide Anion Gap BUN Creatinine Estim Creat Clear Calc Estimated GFR POC Glucose 228 H 233 H Random Glucose Calcium Phosphorus Magnesium Total Bilirubin AST ALT Alkaline Phosphatase Total Protein Albumin Blood Type O Positive Antibody Screen NEGATIVE Crossmatch See Detail 01/31/21 01/31/21 01/31/21 05:21 05:21 07:25 WBC 16.7 H RBC 3.01 L Hgb 7.9 L Hct 23.7 L MCV 78.7 L MCH 26.2 L MCHC 33.3 RDW 15.6 Plt Count 218 MPV 8.6 L Immature Gran % (Auto) 2.7 H Neut % (Auto) 89.2 H Lymph % (Auto) 2.6 L [place] % (Auto) 5.0 Eos % (Auto) 0.4 Baso % (Auto) 0.1 Lymph # (Auto) 0.4 L [place] # (Auto) 0.8 Eos # (Auto) 0.1 Baso # (Auto) 0.0 Abs Immat Gran (auto) 0.45 H Absolute Neuts (auto) 14.9 H Absolute Nucleated RBC 0.000 Nucleated RBC % (auto) 0.0 Smear Tech's Comments VERIFIED Sodium 131 L Potassium 4.4 Chloride 101 Carbon Dioxide 19 L Anion Gap 15 BUN 59 H Creatinine 1.52 H Estim Creat Clear Calc 64.4 Estimated GFR 47 POC Glucose 226 H Random Glucose 235 H Calcium 8.2 L Phosphorus 2.8 Magnesium 2.0 Total Bilirubin 2.5 H AST 19 ALT 14 Alkaline Phosphatase 272 H Total Protein 5.0 L Albumin 2.8 L D Blood Type Antibody Screen Crossmatch 01/31/21 11:18 WBC RBC Hgb Hct MCV MCH MCHC RDW Plt Count MPV Immature Gran % (Auto) Neut % (Auto) Lymph % (Auto) [place] % (Auto) Eos % (Auto) Baso % (Auto) Lymph # (Auto) [place] # (Auto) Eos # (Auto) Baso # (Auto) Abs Immat Gran (auto) Absolute Neuts (auto) Absolute Nucleated RBC Nucleated RBC % (auto) Smear Tech's Comments Sodium Potassium Chloride Carbon Dioxide Anion Gap BUN Creatinine Estim Creat Clear Calc Estimated GFR POC Glucose 204 H Random Glucose Calcium Phosphorus Magnesium Total Bilirubin AST ALT Alkaline Phosphatase Total Protein Albumin Blood Type Antibody Screen Crossmatch Microbiology Microbiology Results: Microbiology 01/30/21 00:00 Leg Left Gram Stain - Final 01/30/21 00:00 Leg Left Routine Culture - Preliminary 01/27/21 20:32 Blood - Venous Blood Culture - Preliminary No growth after 48 hours. 01/27/21 20:19 Blood - Venous Blood Culture - Preliminary No growth after 48 hours. Progress Note: A&P Assessment and plan (1) Necrotizing fasciitis: Status: Acute Assessment and Plan: Assessment: 60-year-old gentleman with underlying diabetes mellitus, peripheral vascular disease, history of right TMA, and left chronic her also admitted with sepsis with soft tissue source Plan: Neuro: No acute issues. Cardiac: History of cardiomyopathy, 2D echocardiogram is pending. Underlying AFib, Eliquis held periprocedurely. Pulmonary: No acute issues. Renal: Acute kidney injury, likely secondary to septic shock, non oliguric, improving. Continue to monitor urine output and renal indices. Endo: No acute issues. Underlying diabetes mellitus. GI: No acute issues. ID: Left heel fasciitis and osteomyelitis. General surgery service care appreciated. 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 Continue broad-spectrum antibiotics. Heme/Onc: Acute blood loss anemia secondary to using from the surgical debridement, status post transfusion of 2 units of packed red blood cells. Psych: No acute issues. Miscellaneous: No acute issues. Prophylaxis: Eliquis Diet: Diabetic Critical care time spent: 45 minutes (2) Acute renal failure: Status: Acute (3) Congestive cardiomyopathy: Status: Acute (4) Atrial fibrillation with rapid ventricular response: Status: Acute (5) Sepsis associated hypotension: Status: Acute (6) Diabetes mellitus: Status: Acute
[2021-01-31] MEDS: ondansetron HCL 4 MG/2 ML VIAL IVPUSH (16:08)
[2021-01-31] MEDS: HYDROmorphone HCl 0.5 MG/0.5 ML SYRINGE IVPUSH (16:15)
[2021-01-31 16:32] LABS: Glucose, Whole Blood 239 mg/dL (60-115)
[2021-01-31 19:30] LABS: Basophils Percent Auto 0.1 % (0-2); Eosinophils Percent Auto 0.1 % (0-4); Hematocrit 24.7 % (42-52); Hemoglobin 8.3 g/dl (14.0-18.0); Imm Gran Abs Auto 0.94 X10*3/uL (0.00-0.03); Lymphocytes Absolute Auto 0.3 X10*3/uL (1.2-4.9); Lymphocytes Percent Auto 1.5 % (20-40); MANUAL DIFF FLAG SCAN; Mean Corpuscular HGB Conc 33.6 g/dl (31.0-36.0); Mean Corpuscular Volume 80.5 fL (80-98); Mean Platelet Volume 8.4 fL (9.4-12.4); Monocytes Absolute Auto 0.4 X10*3/uL (0.1-1.2); Monocytes Percent Auto 2.2 % (2-11); Neutrophils Absolute Auto 17.2 X10*3/uL (2.0-8.3); Neutrophils Percent Auto 91.1 % (45-73); Platelet Count 224 X10*3/uL (160-400); Red Blood Count 3.07 X10*6/uL (4.60-5.80); Red Cell Distribution Width 16.7 % (11.0-16.0); SCAN SMEAR FLAG 1; White Blood Count 18.9 X10*3/uL (4.8-10.8)
[2021-01-31 19:51] LABS: SLIDE REVIEW VERIFIED
[2021-01-31 20:04] LABS: Anion Gap 16 (12-20); Blood Urea Nitrogen 61 mg/dL (9-16); Calcium 7.9 mg/dL (8.4-10.2); Carbon Dioxide 19 mmol/L (22-29); Chloride 102 mmol/L (96-108); Creatinine Clr Calc Pharmacy 64.7; Estimated Glomerular Filt Rate 46; Glucose Random 263 mg/dL (60-115); Potassium 4.8 mmol/L (3.3-5.1); Sodium 132 mmol/L (135-145)
[2021-01-31 20:13] LABS: Vancomycin Trough 17.5 mcg/mL (10.0-20.0)
[2021-01-31] MEDS: Insulin Glargine,Hum.rec.anlog 100 UNIT/ML 10 ML VIAL 10 UNIT SUBCUT (21:21)
[2021-01-31] MEDS: vancomycin HCL 1,250 MG in 0.9 % Sodium Chloride 250 ML 166.67 MG IV (21:21)
[2021-01-31 22:29] LABS: Glucose, Whole Blood 242 mg/dL (60-115)
[2021-02-01] VITALS (14 sets, daily range): BP systolic 105–143; BP diastolic 57–78; PULSE 52–100; RESP 11–22; TEMP 36–37.2; O2SAT 96–100; BMI 28.2
[2021-02-01] MEDS: fentaNYL citrate/PF 100 MCG/2 ML VIAL 50 MCG IVPUSH ×3 (01:01→07:49)
[2021-02-01] MEDS: Piperacillin Sodium/Tazobactam 4.5 GM in 0.9 % Sodium Chloride 100 ML IV ×2 (01:02→07:48)
[2021-02-01] MEDS: Albumin Human 25 % 100 ML IV ×4 (01:08→21:56)
[2021-02-01 05:39] LABS: Basophils Percent Auto 0.2 % (0-2); Hematocrit 24.6 % (42-52); Hemoglobin 8.2 g/dl (14.0-18.0); Imm Gran Pct Auto 5.8 % (0.0-0.4); Lymphocytes Absolute Auto 0.4 X10*3/uL (1.2-4.9); Lymphocytes Percent Auto 2.2 % (20-40); Mean Corpuscular HGB Conc 33.3 g/dl (31.0-36.0); Mean Corpuscular Hemoglobin 26.9 pg (27.0-33.0); Mean Corpuscular Volume 80.7 fL (80-98); Monocytes Absolute Auto 0.6 X10*3/uL (0.1-1.2); Monocytes Percent Auto 3.3 % (2-11); Neutrophils Absolute Auto 16.8 X10*3/uL (2.0-8.3); Neutrophils Percent Auto 88.5 % (45-73); Platelet Count 242 X10*3/uL (160-400); Red Blood Count 3.05 X10*6/uL (4.60-5.80); Red Cell Distribution Width 16.6 % (11.0-16.0); SCAN SMEAR FLAG 1
[2021-02-01 05:45] LABS: MANUAL DIFF FLAG SCAN
[2021-02-01 05:59] LABS: SLIDE REVIEW VERIFIED
[2021-02-01 06:12] LABS: Anion Gap 17 (12-20); Blood Urea Nitrogen 58 mg/dL (9-16); Calcium 7.8 mg/dL (8.4-10.2); Carbon Dioxide 17 mmol/L (22-29); Chloride 103 mmol/L (96-108); Creatinine Clr Calc Pharmacy 68.7; Estimated Glomerular Filt Rate 50; Glucose Random 324 mg/dL (60-115); Magnesium 2.1 mg/dL (1.6-2.6); Phosphorus 3.9 mg/dL (2.7-4.5); Potassium 4.8 mmol/L (3.3-5.1); Sodium 132 mmol/L (135-145)
[2021-02-01 07:16] LABS: Glucose, Whole Blood 303 mg/dL (60-115)
[2021-02-01] MEDS: Insulin Lispro 100 UNIT/ML 3 ML VIAL SUBCUT ×5 (07:47→20:20)
[2021-02-01] MEDS: Furosemide 200 MG in 0.9 % Sodium Chloride 80 ML IVCONT (08:40)
[2021-02-01] MEDS: oxyCODONE HCl Immed Release 5 MG TABLET PO (10:47)
--- NOTE | 2021-02-01 11:20 | P.PNGS_ITS ---
Subjective Subjective Date of Service: 02/01/21 Interval history: Patient reports some left stump pain otherwise no new complaints Physical Exam Vital Signs: Vital Signs: Last Vital Signs Temp 97.2 F 02/01/21 11:00 Pulse 88 02/01/21 11:00 Resp 18 02/01/21 11:00 BP 117/67 02/01/21 11:00 Pulse Ox 97 02/01/21 11:00 Body Mass Index 28.2 Const: General: cooperative, no acute distress, alert and awake Resp: Effort & Inspection: normal respiratory effort GI: Inspection: Yes normal to inspection Skin: Other: Warm dry, no rash Extrem: Other: Left AKA stump dressings are clean, dry, and intact, no erythema or skin necrosis Progress Note: A&P Assessment and plan (1) Necrotizing fasciitis: Status: Acute Assessment and Plan: 60-year-old male patient with history of diabetes mellitus, congestive cardiomyopathy, acute renal failure and osteomyelitis of the left foot, subsequently developed necrotizing fasciitis of the left leg. He is now status post AKA postoperative day 1. He is hemodynamically stable and his wounds are clean and dry. I will changes dressings tomorrow. Continue antibiotics. Fall Risk Details Current Medications: Current Medications Generic Name Dose Route Start Last Admin Trade Name Freq PRN Reason Stop Dose Admin Fentanyl 50 mcg 01/30/21 15:17 02/01/21 07:49 Fentanyl Citrate/Pf 100 Mcg/2 Ml Vial IVPUSH 50 mcg Q2H PRN Administration Pain, Moderate (Pain Scale 4-6 Furosemide 200 mg/ Sodium 100 mls @ 1 mls/hr 01/30/21 09:00 02/01/21 08:40 Chloride IVCONT 2 mg/hr .Q24H AKILA 1 mls/hr Administration 2 MG/HR Vancomycin HCl 1,250 mg/ 250 mls @ 166.667 mls/hr 01/31/21 20:00 01/31/21 23:02 Sodium Chloride IV Infused Q24H AKILA Infusion Albumin Human 100 mls @ 100 mls/hr 02/01/21 09:00 02/01/21 09:51 Kedbumin 25 % IV 02/02/21 03:59 Infused Q6H AKILA Infusion Piperacillin Sod/Tazobactam 100 mls @ 200 mls/hr 02/01/21 09:30 02/01/21 09:51 Sod 3.375 gm/ Sodium Chloride IV Not Given Q6H [facility] Insulin Glargine 10 unit 01/28/21 21:00 01/31/21 21:21 Insulin Glargine,Hum.Rec.Anlog 100 Unit/Ml 10 Ml Vial SUBCUT 10 unit BEDTIME AKILA Administration Insulin Human Lispro 0 unit 01/28/21 07:30 02/01/21 07:47 Insulin Lispro 100 Unit/Ml 3 Ml Vial SUBCUT 8 unit QIDACHS [facility] Administration Protocol Ondansetron HCl 4 mg 01/31/21 16:04 01/31/21 16:08 Ondansetron Hcl 4 Mg/2 Ml Vial IVPUSH 4 mg Q6H PRN Administration Nausea Pharmacy Consult 1 each 01/27/21 20:21 Consult Rx Vancomycin Dosing MISCELLANE DAILY PRN Consult order Time Spent With Patient Time: Total time spent is greater than 50% in coordination of care (as documented) at patient's floor/unit and/or counseling patient: Time with patient: 15 - 24 minutes Procedures Date of Service Date of Service: 02/01/21
--- NOTE | 2021-02-01 11:24 | PC.NURSE ---
Primary RN attempted to dc mccormack cath. emptied 10cc balloon successfully but palpated tip and felt a slight ridge. injected sterile lubricant into meatus and gave a gentle tug and mccormack came loose/came out. Going forward, I would insert a smaller catherter. (current cath size was 16).
[2021-02-01 11:28] LABS: Glucose, Whole Blood 403 mg/dL (60-115)
--- NOTE | 2021-02-01 11:39 | HO.POSTANES ---
Post Anesthesia Evaluation Post Anesthesia Evaluation Vital Signs: Vital Signs Temp Pulse Resp BP Pulse Ox 02/01/21 11:00 97.2 F 88 18 117/67 97 02/01/21 08:00 97.6 F 87 12 125/68 96 02/01/21 07:49 16 02/01/21 07:00 81 19 122/71 100 02/01/21 06:00 75 16 112/78 100 02/01/21 05:00 100 02/01/21 04:00 99 F 81 22 H 111/68 100 02/01/21 03:00 79 14 113/68 99 02/01/21 01:55 82 11 L 105/59 L 100 02/01/21 00:53 87 13 115/58 L 99 02/01/21 00:00 87 11 L 115/58 L 100 Anesthesia: General Mental Status: Awake Pain Control: Satisfactory Nausea/Vomiting: None Hydration: Adequate Anesthesia-Related Issues: No Anes. Related Issues
[2021-02-01] MEDS: Morphine Sulfate 4 MG/ML CARTRIDGE IVPUSH (12:05)
--- NOTE | 2021-02-01 13:27 | P.PNCC_ITS ---
Subjective Subjective Date of Service: 02/01/21 Interval History: 60-year-old gentleman with underlying history of diabetes mellitus, AFib on Eliquis, hypertension, cardiomyopathy, Tourette's, right TMA, left heel also admitted on 01/28 with sepsis with soft tissue source. Patient has been treated with broad-spectrum antibiotics and required vasopressor support. On 01/30/2021 general surgery debridement in the OR was consistent with necrotizing fasciitis. Patient return to OR on 01/31/2021 for definitive debridement which demonstrated nonviable tissue and left above the knee amputa tion was performed. No events overnight. Critical Care Time (minutes): 0 Physical Exam Vital Signs: Vital Signs: Last Vital Signs Temp 97.2 F 02/01/21 11:00 Pulse 88 02/01/21 11:00 Resp 18 02/01/21 11:00 BP 117/67 02/01/21 11:00 Pulse Ox 97 02/01/21 11:00 Body Mass Index 28.2 Const: General: no acute distress, alert and awake Eyes: Sclerae: sclerae normal EOM: EOMs intact bilaterally Neck: Neck: Yes no lymphadenopathy, Yes trachea midline and Yes supple Resp: Effort & Inspection: normal respiratory effort and no respiratory distress Auscultation: clear to auscultation bilaterally Cardio: Rate: regular rate Rhythm: regular rhythm Heart sounds: no gallops, no murmurs and no rubs GI: Palpation (GI): Soft to palpation and Other GI palpation findings present ( Nontender) Auscultation: normal bowel sounds Extrem: General: No clubbing, No cyanosis and Yes other (Left AKA, right TMA) Objective Data Labs CBC & Chem 7: 02/01/21 05:10 02/01/21 05:10 Labs: Laboratory Results - last 24 hr 01/30/21 01/31/21 01/31/21 09:43 16:27 19:21 WBC RBC Hgb Hct MCV MCH MCHC RDW Plt Count MPV Immature Gran % (Auto) Neut % (Auto) Lymph % (Auto) [place] % (Auto) Eos % (Auto) Baso % (Auto) Lymph # (Auto) [place] # (Auto) Eos # (Auto) Baso # (Auto) Abs Immat Gran (auto) Absolute Neuts (auto) Absolute Nucleated RBC Nucleated RBC % (auto) Smear Tech's Comments Sodium Potassium Chloride Carbon Dioxide Anion Gap BUN Creatinine Estim Creat Clear Calc Estimated GFR POC Glucose 239 H Random Glucose Calcium Phosphorus Magnesium Albumin Vancomycin Trough 17.5 Blood Type O Positive Antibody Screen NEGATIVE Crossmatch See Detail 01/31/21 01/31/21 01/31/21 19:21 19:21 21:11 WBC 18.9 H RBC 3.07 L Hgb 8.3 L Hct 24.7 L MCV 80.5 MCH 27.0 MCHC 33.6 RDW 16.7 H Plt Count 224 MPV 8.4 L Immature Gran % (Auto) 5.0 H Neut % (Auto) 91.1 H Lymph % (Auto) 1.5 L [place] % (Auto) 2.2 Eos % (Auto) 0.1 Baso % (Auto) 0.1 Lymph # (Auto) 0.3 L [place] # (Auto) 0.4 Eos # (Auto) 0.0 Baso # (Auto) 0.0 Abs Immat Gran (auto) 0.94 H Absolute Neuts (auto) 17.2 H Absolute Nucleated RBC 0.000 Nucleated RBC % (auto) 0.0 Smear Tech's Comments VERIFIED Sodium 132 L Potassium 4.8 Chloride 102 Carbon Dioxide 19 L Anion Gap 16 BUN 61 H Creatinine 1.55 H Estim Creat Clear Calc 64.7 Estimated GFR 46 POC Glucose 242 H Random Glucose 263 H Calcium 7.9 L Phosphorus Magnesium Albumin Vancomycin Trough Blood Type Antibody Screen Crossmatch 02/01/21 02/01/21 02/01/21 05:10 05:10 07:13 WBC 19.0 H RBC 3.05 L Hgb 8.2 L Hct 24.6 L MCV 80.7 MCH 26.9 L MCHC 33.3 RDW 16.6 H Plt Count 242 MPV 9.0 L Immature Gran % (Auto) 5.8 H Neut % (Auto) 88.5 H Lymph % (Auto) 2.2 L [place] % (Auto) 3.3 Eos % (Auto) 0.0 Baso % (Auto) 0.2 Lymph # (Auto) 0.4 L [place] # (Auto) 0.6 Eos # (Auto) 0.0 Baso # (Auto) 0.0 Abs Immat Gran (auto) 1.10 H Absolute Neuts (auto) 16.8 H Absolute Nucleated RBC 0.000 Nucleated RBC % (auto) 0.0 Smear Tech's Comments VERIFIED Sodium 132 L Potassium 4.8 Chloride 103 Carbon Dioxide 17 L Anion Gap 17 BUN 58 H Creatinine 1.46 H Estim Creat Clear Calc 68.7 Estimated GFR 50 POC Glucose 303 H Random Glucose 324 H Calcium 7.8 L Phosphorus 3.9 Magnesium 2.1 Albumin 3.0 L Vancomycin Trough Blood Type Antibody Screen Crossmatch 02/01/21 11:01 WBC RBC Hgb Hct MCV MCH MCHC RDW Plt Count MPV Immature Gran % (Auto) Neut % (Auto) Lymph % (Auto) [place] % (Auto) Eos % (Auto) Baso % (Auto) Lymph # (Auto) [place] # (Auto) Eos # (Auto) Baso # (Auto) Abs Immat Gran (auto) Absolute Neuts (auto) Absolute Nucleated RBC Nucleated RBC % (auto) Smear Tech's Comments Sodium Potassium Chloride Carbon Dioxide Anion Gap BUN Creatinine Estim Creat Clear Calc Estimated GFR POC Glucose 403 H* Random Glucose Calcium Phosphorus Magnesium Albumin Vancomycin Trough Blood Type Antibody Screen Crossmatch Microbiology Microbiology Results: Microbiology 01/30/21 00:00 Leg Left Gram Stain - Final 01/30/21 00:00 Leg Left Routine Culture - Final 01/31/21 Unknown Femur Left Gram Stain - Final 01/31/21 Unknown Femur Left Routine Culture - Preliminary No growth to date. 01/27/21 20:32 Blood - Venous Blood Culture - Preliminary No growth after 48 hours. 01/27/21 20:19 Blood - Venous Blood Culture - Preliminary No growth after 48 hours. Progress Note: A&P Assessment and plan (1) Necrotizing fasciitis: Status: Acute Assessment and Plan: Assessment: 60-year-old gentleman with underlying diabetes mellitus, peripheral vascular disease, history of right TMA, and left chronic heel ulcer admitted with sepsis with soft tissue source Plan: Neuro: No acute issues. Cardiac: Underlying chronic systolic congestive heart failure Underlying AFib, Eliquis held periprocedurely, to resume in 24-48 hours. Pulmonary: No acute issues. Renal: Acute kidney injury, likely secondary to septic shock, non oliguric, improving. Continue to monitor urine output and renal indices. Endo: No acute issues. Underlying diabetes mellitus. GI: No acute issues. ID: Left heel fasciitis and osteomyelitis. General surgery service care appreciated. 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 Continue broad-spectrum antibiotics. Heme/Onc: Acute blood loss anemia secondary to using from the surgical debridement, status post transfusion of 3 units of packed red blood cells. Psych: No acute issues. Miscellaneous: No acute issues. Prophylaxis: Eliquis Diet: Diabetic (2) Acute renal failure: Status: Acute (3) Congestive cardiomyopathy: Status: Acute (4) Atrial fibrillation with rapid ventricular response: Status: Acute (5) Diabetes mellitus: Status: Acute
[2021-02-01] MEDS: HYDROmorphone HCl 0.5 MG/0.5 ML SYRINGE IVPUSH ×2 (15:19→19:48)
[2021-02-01 16:36] LABS: Glucose, Whole Blood 350 mg/dL (60-115)
--- NOTE | 2021-02-01 17:52 | PM.EVENT ---
Event Note Date of Service: 02/01/21 Event Note: Progress note Patient seen and evaluated after ICU transfer Complaining of pain in his left lower extremity, On exam is alert, oriented, interactive, not in distress, clear chest bilaterally, left AKA stump area covered with dressing with no drainage or bleeding. to start Dilaudid for pain Echo showed decreased ejection fraction of 25-30% with global hypokinesia Eliquis remains on hold, to restart hopefully by tomorrow for AFib Acute kidney injury improving Post left AKA, continue broad-spectrum antibiotics
[2021-02-01 20:00] LABS: Glucose, Whole Blood 315 mg/dL (60-115)
[2021-02-01] MEDS: vancomycin HCL 1,250 MG in 0.9 % Sodium Chloride 250 ML 166.67 MG IV (20:20)
[2021-02-01] MEDS: Insulin Glargine,Hum.rec.anlog 100 UNIT/ML 10 ML VIAL 18 UNIT SUBCUT (20:21)
[2021-02-02] VITALS (8 sets, daily range): BP systolic 117–140; BP diastolic 60–76; PULSE 76–96; RESP 16–20; TEMP 36.3–37.1; O2SAT 94–100; BMI 27.6
[2021-02-02] MEDS: HYDROmorphone HCl 0.5 MG/0.5 ML SYRINGE IVPUSH ×5 (01:56→21:05)
[2021-02-02] MEDS: Albumin Human 25 % 100 ML IV (03:34)
[2021-02-02 06:41] LABS: Hematocrit 25.5 % (42-52); Hemoglobin 8.4 g/dl (14.0-18.0); Mean Corpuscular HGB Conc 32.9 g/dl (31.0-36.0); Mean Corpuscular Hemoglobin 26.5 pg (27.0-33.0); Mean Corpuscular Volume 80.4 fL (80-98); Mean Platelet Volume 8.8 fL (9.4-12.4); Platelet Count 310 X10*3/uL (160-400); Red Blood Count 3.17 X10*6/uL (4.60-5.80); Red Cell Distribution Width 16.7 % (11.0-16.0); White Blood Count 16.4 X10*3/uL (4.8-10.8)
[2021-02-02 07:06] LABS: Anion Gap 13 (12-20); Blood Urea Nitrogen 50 mg/dL (9-16); Calcium 7.9 mg/dL (8.4-10.2); Carbon Dioxide 23 mmol/L (22-29); Chloride 103 mmol/L (96-108); Creatinine Clr Calc Pharmacy 77.4; Estimated Glomerular Filt Rate 60; Glucose Random 338 mg/dL (60-115); Magnesium 1.9 mg/dL (1.6-2.6); Potassium 4.5 mmol/L (3.3-5.1); Sodium 134 mmol/L (135-145)
[2021-02-02 07:27] LABS: Glucose, Whole Blood 327 mg/dL (60-115)
[2021-02-02 07:28] LABS: Phosphorus 2.1 mg/dL (2.7-4.5)
[2021-02-02] MEDS: Insulin Lispro 100 UNIT/ML 3 ML VIAL SUBCUT ×4 (07:43→21:08)
[2021-02-02] MEDS: Insulin Glargine,Hum.rec.anlog 100 UNIT/ML 10 ML VIAL 10 UNIT SUBCUT (08:18)
[2021-02-02 08:53] LABS: Band Neutrophils Percent 4 % (3-5); Eosinophils Absolute Manual 0.2 X10*3/UL (0.0-0.8); Eosinophils Percent Manual 1 % (0-4); Lymphocytes Absolute Manual 0.7 X10*3/uL (0.6-4.8); Lymphocytes Percent Manual 4 % (20-40); Monocytes Absolute Manual 0.5 X10*3/uL (0.0-1.2); Monocytes Percent Manual 3 % (2-11); Neutrophils Absolute Manual 15.1 X10*3/uL (2.2-7.9); Neutrophils Percent Manual 88 % (45-73); Nucleated Red Blood Cells 1 /100WBC (0-0)
[2021-02-02 08:54] LABS: RBC Morphology NOTED
[2021-02-02 08:55] LABS: Hypochromasia 1+ (5-14) /OIF; Ovalocytes 1+ (5-14) /OIF
[2021-02-02 08:56] LABS: Platelet Estimate NORMAL (NORMAL); Platelet Morphology Comment NORMAL
[2021-02-02 11:20] LABS: Glucose, Whole Blood 297 mg/dL (60-115)
--- NOTE | 2021-02-02 15:17 | HO.PM.IMPN ---
Subjective Subjective Date of Service: 02/02/21 Interval History: the patient was seen and evaluated this morning Laying in bed, feels tired and complaining of pain at the surgical side but overall much improved and before and pain is under better control Denies any fever, chills or shortness of breath No reported other overnight events. Systemic review: No fever, chills but reports generalized weakness in feeling sleepy No chest pain, palpitation No shortness of breath or coughing No abdominal pain, nausea or vomiting No urinary symptoms No any rash or wounds Physical Exam Vital Signs: Vital Signs: Last Vital Signs Temp 98.7 F 02/02/21 12:00 Pulse 91 02/02/21 12:00 Resp 20 02/02/21 12:00 BP 123/64 02/02/21 12:00 Pulse Ox 98 02/02/21 12:00 Body Mass Index 27.6 Const: Other: Constitutional : Alert, oriented, not in distress Neck : Normal inspection, Supple Cardiovascular : RRR, S1 S2, no lower extremity edema Respiratory : Good bilateral air entry, no crackles, wheezes or rhonchi Gastrointestinal: soft, lax, Normal bowel sounds, Non tender Skin : Warm/Dry, No rash Skeletal : Left above knee amputation with clean stump and no drainage or erythema noted Neurological : Alert & oriented x3, No focal deficit Objective Data Current Medications Generic Name Dose Route Start Last Admin Trade Name Freq PRN Reason Stop Dose Admin Hydromorphone HCl 0.5 mg 02/01/21 14:52 02/02/21 11:50 Hydromorphone Hcl 0.5 Mg/0.5 Ml Syringe IVPUSH 0.5 mg Q4H PRN Administration Pain, Severe (Pain Scale 7-10) Furosemide 200 mg/ Sodium 100 mls @ 1 mls/hr 01/30/21 09:00 02/02/21 10:19 Chloride IVCONT Not Given .Q24H AKILA 2 MG/HR Vancomycin HCl 1,250 mg/ 250 mls @ 166.667 mls/hr 01/31/21 20:00 02/01/21 21:57 Sodium Chloride IV Infused Q24H AKILA Infusion Piperacillin Sod/Tazobactam 100 mls @ 200 mls/hr 02/01/21 09:30 02/02/21 09:40 Sod 3.375 gm/ Sodium Chloride IV Infused Q6H AKILA Infusion Insulin Glargine 18 unit 02/01/21 21:00 02/01/21 20:21 Insulin Glargine,Hum.Rec.Anlog 100 Unit/Ml 10 Ml Vial SUBCUT 18 unit BEDTIME AKILA Administration Insulin Glargine 10 unit 02/02/21 09:00 02/02/21 08:18 Insulin Glargine,Hum.Rec.Anlog 100 Unit/Ml 10 Ml Vial SUBCUT 10 unit DAILY AKILA Administration Insulin Human Lispro 0 unit 01/28/21 07:30 02/02/21 11:46 Insulin Lispro 100 Unit/Ml 3 Ml Vial SUBCUT 6 unit QIDACHS AKILA Administration Protocol Ondansetron HCl 4 mg 01/31/21 16:04 01/31/21 16:08 Ondansetron Hcl 4 Mg/2 Ml Vial IVPUSH 4 mg Q6H PRN Administration Nausea Pharmacy Consult 1 each 01/27/21 20:21 Consult Rx Vancomycin Dosing MISCELLANE DAILY PRN Consult order Labs CBC & Chem 7: 02/02/21 05:32 02/02/21 05:32 Microbiology Microbiology Results: Microbiology 01/31/21 Unknown Femur Left Gram Stain - Final 01/31/21 Unknown Femur Left Routine Culture - Final No growth after 2 days 01/27/21 20:32 Blood - Venous Blood Culture - Final No growth after 5 days. 01/27/21 20:19 Blood - Venous Blood Culture - Final No growth after 5 days. 01/30/21 00:00 Leg Left Gram Stain - Final 01/30/21 00:00 Leg Left Routine Culture - Final Assessment and Plan (1) Necrotizing fasciitis: Status: Acute (2) Acute renal failure: Status: Acute (3) Congestive cardiomyopathy: Status: Acute Assessment and Plan: 60-year-old gentleman with underlying history of diabetes mellitus, AFib on Eliquis, hypertension, cardiomyopathy, Tourette's, right TMA, left heel also admitted on 01/28 with sepsis with soft tissue source. Necrotizing fasciitis Status post left AKA Continue pain medications with Dilaudid as needed WBCs going down Surgical team following Continue vancomycin and Zosyn Negative cultures Start physical therapy today Acute kidney injury Improving Creatinine 1.2 this morning Monitor intake and output Atrial fibrillation Restart Eliquis today Acute Congestive cardiomyopathy Low ejection fraction of 25-30% on echo with global hypokinesia Discontinue Lasix drip Start Lasix IV Hyperglycemia diabetes Elevated glucose levels in 300 Add 10 units of Lantus in the morning Increase bedtime Lantus to 20 DVT PPX Eliquis
[2021-02-02 15:59] LABS: Glucose, Whole Blood 223 mg/dL (60-115)
--- NOTE | 2021-02-02 16:13 | PM.PNGS ---
Subjective Subjective Date of Service: 02/02/21 Interval history: Patient with no new complaints. Denies significant left lower extremity pain Physical Exam Vital Signs: Vital Signs: Last Vital Signs Temp 97.4 F 02/02/21 15:23 Pulse 76 02/02/21 15:23 Resp 20 02/02/21 15:23 BP 119/69 02/02/21 15:23 Pulse Ox 98 02/02/21 15:23 Body Mass Index 27.6 Const: General: cooperative, comfortable and no acute distress Resp: Effort & Inspection: normal respiratory effort Skin: General skin exam: no rashes or lesions noted Extrem: Other: Left AKA dressings changed. Incision is clean and intact some bloody discharge noted from the midportion. No hematoma. No evidence of skin necrosis or abscess. Wounds were redressed with Xeroform, fluff gauze, ABD pad, Kerlix, and Neftali bandage. Patient tolerated the dressing change well. Progress Note: A&P Assessment and plan (1) Necrotizing fasciitis: Status: Acute Assessment and Plan: Status post [id number] amputation for necrotizing fasciitis left leg, postoperative day 2. Dressing change today reveals a clean wound without evidence of ongoing infection. Continue IV antibiotics. Begin physical therapy and discharge planning. Fall Risk Details Current Medications: Current Medications Generic Name Dose Route Start Last Admin Trade Name Freq PRN Reason Stop Dose Admin Apixaban 5 mg 02/02/21 21:00 Apixaban 5 Mg Tablet PO BID AKILA Hydromorphone HCl 0.5 mg 02/01/21 14:52 02/02/21 15:51 Hydromorphone Hcl 0.5 Mg/0.5 Ml Syringe IVPUSH 0.5 mg Q4H PRN Administration Pain, Severe (Pain Scale 7-10) Vancomycin HCl 1,250 mg/ 250 mls @ 166.667 mls/hr 01/31/21 20:00 02/01/21 21:57 Sodium Chloride IV Infused Q24H AKILA Infusion Piperacillin Sod/Tazobactam 100 mls @ 200 mls/hr 02/01/21 09:30 02/02/21 16:12 Sod 3.375 gm/ Sodium Chloride IV Infused Q6H AKILA Infusion Insulin Glargine 18 unit 02/01/21 21:00 02/01/21 20:21 Insulin Glargine,Hum.Rec.Anlog 100 Unit/Ml 10 Ml Vial SUBCUT 18 unit BEDTIME AKILA Administration Insulin Glargine 10 unit 02/02/21 09:00 02/02/21 08:18 Insulin Glargine,Hum.Rec.Anlog 100 Unit/Ml 10 Ml Vial SUBCUT 10 unit DAILY AKILA Administration Insulin Human Lispro 0 unit 01/28/21 07:30 02/02/21 11:46 Insulin Lispro 100 Unit/Ml 3 Ml Vial SUBCUT 6 unit QIDACHS AKILA Administration Protocol Ondansetron HCl 4 mg 01/31/21 16:04 01/31/21 16:08 Ondansetron Hcl 4 Mg/2 Ml Vial IVPUSH 4 mg Q6H PRN Administration Nausea Pharmacy Consult 1 each 01/27/21 20:21 Consult Rx Vancomycin Dosing MISCELLANE DAILY PRN Consult order Time Spent With Patient Time: Total time spent is greater than 50% in coordination of care (as documented) at patient's floor/unit and/or counseling patient: Time with patient: 25 - 35 minutes Procedures Date of Service Date of Service: 02/02/21
[2021-02-02 19:29] LABS: Vancomycin Trough 18.1 mcg/mL (10.0-20.0)
[2021-02-02 20:11] LABS: Glucose, Whole Blood 197 mg/dL (60-115)
[2021-02-02] MEDS: vancomycin HCL 1,250 MG in 0.9 % Sodium Chloride 250 ML 166.67 MG IV (20:50)
[2021-02-02] MEDS: Apixaban 5 MG TABLET PO (20:50)
[2021-02-02] MEDS: Insulin Glargine,Hum.rec.anlog 100 UNIT/ML 10 ML VIAL 18 UNIT SUBCUT (21:08)
[2021-02-03] VITALS (7 sets, daily range): BP systolic 105–136; BP diastolic 63–76; PULSE 62–86; RESP 18–20; TEMP 36.3–37.1; O2SAT 96–98
[2021-02-03] MEDS: HYDROmorphone HCl 0.5 MG/0.5 ML SYRINGE IVPUSH ×4 (06:07→23:25)
[2021-02-03 06:49] LABS: Hematocrit 25.8 % (42-52); Hemoglobin 8.5 g/dl (14.0-18.0); Mean Corpuscular HGB Conc 32.9 g/dl (31.0-36.0); Mean Corpuscular Hemoglobin 27.2 pg (27.0-33.0); Mean Corpuscular Volume 82.4 fL (80-98); Mean Platelet Volume 8.6 fL (9.4-12.4); Platelet Count 323 X10*3/uL (160-400); Red Blood Count 3.13 X10*6/uL (4.60-5.80); Red Cell Distribution Width 16.6 % (11.0-16.0)
[2021-02-03 07:27] LABS: Glucose, Whole Blood 170 mg/dL (60-115)
[2021-02-03] MEDS: Apixaban 5 MG TABLET PO ×2 (07:29→21:23)
[2021-02-03] MEDS: Insulin Lispro 100 UNIT/ML 3 ML VIAL SUBCUT ×3 (07:29→21:23)
[2021-02-03] MEDS: Insulin Glargine,Hum.rec.anlog 100 UNIT/ML 10 ML VIAL 10 UNIT SUBCUT (07:29)
[2021-02-03 07:30] LABS: Anion Gap 11 (12-20); Blood Urea Nitrogen 37 mg/dL (9-16); Carbon Dioxide 25 mmol/L (22-29); Chloride 106 mmol/L (96-108); Creatinine Clr Calc Pharmacy 84.9; Estimated Glomerular Filt Rate > 60; Glucose Random 175 mg/dL (60-115); Potassium 4.5 mmol/L (3.3-5.1); Sodium 137 mmol/L (135-145)
[2021-02-03 07:45] LABS: Band Neutrophils Percent 6 % (3-5); Eosinophils Absolute Manual 0.2 X10*3/UL (0.0-0.8); Eosinophils Percent Manual 1 % (0-4); Lymphocytes Absolute Manual 1.1 X10*3/uL (0.6-4.8); Lymphocytes Percent Manual 6 % (20-40); Metamyelocytes Absolute 0.4 X10*3/uL; Metamyelocytes Percent 2 %; Monocytes Absolute Manual 0.8 X10*3/uL (0.0-1.2); Monocytes Percent Manual 4 % (2-11); Neutrophils Absolute Manual 16.5 X10*3/uL (2.2-7.9); Neutrophils Percent Manual 81 % (45-73)
[2021-02-03 07:47] LABS: Acanthocytes 1+ (0-2) /OIF; Ovalocytes 1+ (5-14) /OIF; Platelet Estimate NORMAL (NORMAL); Platelet Morphology Comment NORMAL; RBC Morphology NOTED
[2021-02-03 07:48] LABS: Hypochromasia 1+ (5-14) /OIF
--- NOTE | 2021-02-03 09:03 | P.PNGS_ITS ---
Subjective Subjective Date of Service: 02/03/21 Interval history: Patient feels well and denies any ongoing symptoms other than some mild soreness in the incision area, left leg Physical Exam Vital Signs: Vital Signs: Last Vital Signs Temp 97.8 F 02/03/21 07:40 Pulse 85 02/03/21 07:40 Resp 20 02/03/21 07:40 BP 111/69 02/03/21 07:40 Pulse Ox 97 02/03/21 07:40 Body Mass Index 27.6 Const: General: comfortable, no acute distress, alert and awake Resp: Effort & Inspection: normal respiratory effort Skin: General skin exam: no rashes or lesions noted Extrem: Other: Status post left AKA, Wounds at left leg: Clean, dry, intact. No erythema noted in upper leg. Progress Note: A&P Assessment and plan (1) Necrotizing fasciitis: Status: Acute Assessment and Plan: 60-year-old male with necrotizing fasciitis of the left leg status post above- knee amputation. Wounds are clean and intact with minimal bloody discharge. Patient appears comfortable with no evidence of ongoing infection. Physical therapy for ambulation training, ready for discharge to rehab from my standpoint. Will need follow-up in approximately 1-2 weeks following discharge in the office for wound check and possible staple removal. Fall Risk Details Current Medications: Current Medications Generic Name Dose Route Start Last Admin Trade Name Freq PRN Reason Stop Dose Admin Apixaban 5 mg 02/02/21 21:00 02/03/21 07:29 Apixaban 5 Mg Tablet PO 5 mg BID AKILA Administration Furosemide 40 mg 02/03/21 09:00 Furosemide 40 Mg/4 Ml Vial IVPUSH DAILY AKILA Protocol Hydromorphone HCl 0.5 mg 02/01/21 14:52 02/03/21 06:07 Hydromorphone Hcl 0.5 Mg/0.5 Ml Syringe IVPUSH 0.5 mg Q4H PRN Administration Pain, Severe (Pain Scale 7-10) Vancomycin HCl 1,250 mg/ 250 mls @ 166.667 mls/hr 01/31/21 20:00 02/02/21 22:29 Sodium Chloride IV Infused Q24H AKILA Infusion Piperacillin Sod/Tazobactam 100 mls @ 200 mls/hr 02/01/21 09:30 02/03/21 04:02 Sod 3.375 gm/ Sodium Chloride IV Infused Q6H AKILA Infusion Insulin Glargine 18 unit 02/01/21 21:00 02/02/21 21:08 Insulin Glargine,Hum.Rec.Anlog 100 Unit/Ml 10 Ml Vial SUBCUT 18 unit BEDTIME AKILA Administration Insulin Glargine 10 unit 02/02/21 09:00 02/03/21 07:29 Insulin Glargine,Hum.Rec.Anlog 100 Unit/Ml 10 Ml Vial SUBCUT 10 unit DAILY AKILA Administration Insulin Human Lispro 0 unit 01/28/21 07:30 02/03/21 07:29 Insulin Lispro 100 Unit/Ml 3 Ml Vial SUBCUT 2 unit QIDACHS AKILA Administration Protocol Ondansetron HCl 4 mg 01/31/21 16:04 01/31/21 16:08 Ondansetron Hcl 4 Mg/2 Ml Vial IVPUSH 4 mg Q6H PRN Administration Nausea Pharmacy Consult 1 each 01/27/21 20:21 Consult Rx Vancomycin Dosing MISCELLANE DAILY PRN Consult order Time Spent With Patient Time: Total time spent is greater than 50% in coordination of care (as documented) at patient's floor/unit and/or counseling patient: Time with patient: 15 - 24 minutes Procedures Date of Service Date of Service: 02/03/21
[2021-02-03] MEDS: Furosemide 40 MG/4 ML VIAL IVPUSH (09:40)
[2021-02-03 11:09] LABS: Glucose, Whole Blood 176 mg/dL (60-115)
[2021-02-03 12:11] LABS: COVID-19 Test Negative (Negative); IDNOW Serial# 9DD0AD1C
--- NOTE | 2021-02-03 12:31 | P.DS_ITS ---
DS: Providers Provider Date of Service: 02/03/21 Date of admission: 01/28/21 00:19 Primary care physician: Jovanny Osorio MD Consults: 01/28/21 00:38 Consult to Wound Care Routine Consulting Provider: Berry Welsh Reason for consultation: left heel ulcer Has provider been notified: No 01/30/21 08:28 Consult to General Surgery Routine Consulting Provider[place] [facility] Reason for consultation: Left foot osteomyelitis with tissue gas, ?fasciitis Has provider been notified: No DS: Diagnosis Discharge Diagnosis (1) Necrotizing fasciitis: Status: Acute (2) Acute renal failure: Status: Acute (3) Congestive cardiomyopathy: Status: Acute (4) Atrial fibrillation with rapid ventricular response: Status: Acute (5) Hyponatremia: Status: Acute (6) Acute osteomyelitis of left ankle or foot: Status: Acute (7) Severe sepsis: Status: Acute DS: Medications Discharge Medications Home Medications: Home Medications Medication Instructions Recorded Confirmed Lactobacillus rhamnosus GG 1 cap PO DAILY 01/28/21 01/28/21 [Culturelle] amiodarone 1 tab PO DAILY 01/28/21 01/28/21 apixaban [Eliquis] 5 mg PO BID 01/28/21 01/28/21 ascorbic acid (vitamin C) [Vitamin 500 mg PO DAILY 01/28/21 01/28/21 C] carvedilol 1 tab PO BID 01/28/21 01/28/21 carvedilol [Coreg] 3.125 mg PO BID 01/28/21 01/28/21 ferrous gluconate 324 mg PO DAILY 01/28/21 01/28/21 insulin glargine [Lantus Solostar 10 unit SUBCUT BEDTIME 01/28/21 01/28/21 U-100 Insulin] insulin lispro [Humalog U-100 4 unit SUBCUT TID 01/28/21 01/28/21 Insulin] magnesium oxide 400 mg PO DAILY 01/28/21 01/28/21 oxycodone 5 mg PO Q6H PRN 01/28/21 01/28/21 polyethylene glycol 3350 [Miralax] 17 g PO DAILY 01/28/21 01/28/21 DS: Summary Hospital Course Hospital Course: The patient had prolonged hospital stay for full details please return to EMR. Admission note HPI Patient is a 60-year-old male with past medical history out of DM 2 on insulin, AFib on Eliquis, HTN, cardiomyopathy, tourette's syndrome (sniffs), iron def anemia, HLD and chronic left heel ulcer with osteomyelitis and chronic left leg swelling who was BIBA to the ED last night from [facility] when he was found to be febrile, increasing weakness and lethargy, nausea and increased pain in his left heel. According to ED the records, patient states he had left heel debridement today and the wound VAC was removed. According to records faxed from [facility], this ulcer began in Oct 2020. More records which were faxed to us show on 01/17/21, he was evaluated at the [facility] and was found to be hyponatremic at 128 and placed on a 1800cc fluid restriction for 1 week. On that same note, more labs were listed, they are as follows; WBC was 8.4, hemoglobin was 9.2 and hematocrit was 28.3, K 5.5, BUN 30, Cr 1.28, total bili 0.3, AST 7, ALT 9, Alk Phos 142, albumin 2.9, sed rate 32, c react 1.56, ALT Upon arrival in the ED, the patient's vital signs were notable for BP of 84/50, febrile at 102F, however his HR was 80, RR 16 and he was satting at 95% on room air. His labs are notable for a white count of 23.9, hemoglobin 7.6, hematocrit 22.2, Na 121, Cl 92, bicarb 20, BUN 45, Cr 1.94, glucose 476, lactic acid 1.6, Ca 7.8, direct bili 0.6, alk phos 345, total protein 4.9, albumin 2.6. UA showed 1+ protein and glucose. COVID negative. Left calcaneus x-ray showed soft tissue gas with area of ulceration an area of cortical bony destruction with large osteopenic region worrisome for osteomyelitis. Chest x-ray showed no acute process, some mild perihilar density on the right with left mid lung atelectasis. Showed normal sinus rhythm at 79 BPM. Blood cultures are pending. In the ED, the pt was given 3L NS, vanco, zosyn, 10mg midodrine, 14U humalog. Upon my exam, pt was visibly shaking from chills, states he is in pain and missed his oxy dose, last dose was 9 hours ago at 3pm. Notable for left heel ulcer and pedal edema left 2+, right 1+ as well as left leg swelling. Lungs CTA. Patient already placed on dopamine drip and systolic blood pressure is up to 98. Hospital course The patient was admitted to the ICU at time of presentation for severe sepsis secondary to left lower extremity soft tissue infection on 01/28/2021. Evaluated by surgical team who did I&D and notice the infection is deep to the muscles representing necrotizing fasciitis. The patient went for surgery the next day and had left above knee amputation by Dr. Leong and started on IV antibiotics of vancomycin and Zosyn with good response as blood cultures became negative and the patient improved significantly. He was noted to have acute kidney injury at time of presentation with creatinine of 2 from normal baseline. Responded well to treatment with IV fluid and holding nephrotoxic medications. Patient was also noted to have atrial fibrillation with rapid ventricular response as a result of severe sepsis at time of presentation. That was fairly controlled after controlling the source of infection and heart rate became down to 80s. Restarted the Eliquis. After receiving fluid resuscitation in ICU for low blood pressure and post surgery he was noted to develop acute Congestive cardiomyopathy. Echo was done showing Low ejection fraction of 25-30% on echo with global hypokinesia. Treated with Lasix drip Wide in ICU within IV Lasix in the floor with good response. To start low-dose lisinopril for systolic heart failure. His blood sugar reading showed Hyperglycemia diabetes with the need to increase his Lantus dose to 20 units at the bedtime and to add 10 more units during the day for better controlled. He was evaluated by physical therapy team with plan to be discharged to SNF for physical therapy. Time Spent with Patient Time attestation: Total time spent providing and/or coordinating discharge services: Discharge coordination time: Greater than 30 minutes Quality: Stroke Does the patient have a stroke diagnosis?: No Physical Exam Vital Signs: Vital Signs: Last Vital Signs Temp 98.7 F 02/03/21 11:23 Pulse 86 02/03/21 11:23 Resp 20 02/03/21 11:23 BP 136/76 02/03/21 11:23 Pulse Ox 96 02/03/21 11:23 Body Mass Index 27.6 Const: Other: Constitutional : Alert, oriented, not in distress Neck : Normal inspection, Supple Cardiovascular : RRR, S1 S2, no lower extremity edema Respiratory : Good bilateral air entry, no crackles, wheezes or rhonchi Gastrointestinal: soft, lax, Normal bowel sounds, Non tender Skin : Warm/Dry, No rash Skeletal : Left above knee amputation with clean stump and no drainage or erythema noted Neurological : Alert & oriented x3, No focal deficit DS: Data Data Completed and Pending Completed studies during hospitalization [Text1]: Pending at discharge 01/31/21 13:17 Surgical Path [Surgical] [PTH] Routine Labs on day of discharge: Laboratory Results - last 24 hr 02/02/21 02/02/21 02/02/21 05:32 15:54 18:51 WBC RBC Hgb Hct MCV MCH MCHC RDW Plt Count MPV Immature Gran % (Auto) Neut % (Auto) Lymph % (Auto) Spencer % (Auto) Eos % (Auto) Baso % (Auto) Lymph # (Auto) Spencer # (Auto) Eos # (Auto) Baso # (Auto) Abs Immat Gran (auto) Absolute Neuts (auto) Absolute Nucleated RBC Nucleated RBC % (auto) Neutrophils % (Manual) Band Neutrophils % Lymphocytes % (Manual) Monocytes % (Manual) Eosinophils % (Manual) Metamyelocytes % Abs Neuts (Manual) Lymphocytes # (Manual) Monocytes # (Manual) Eosinophils # (Manual) Metamyelocytes # Platelet Estimate Plt Morphology Comment RBC Morphology Hypochromasia Ovalocytes Acanthocytes (Spur) Smear Path Review SEE NOTE Sodium Potassium Chloride Carbon Dioxide Anion Gap BUN Creatinine Estim Creat Clear Calc Estimated GFR POC Glucose 223 H Random Glucose Calcium Vancomycin Trough 18.1 COVID-19 (KINGA) COVID-19 Clin Com 02/02/21 02/03/21 02/03/21 20:06 05:49 05:49 WBC 19.0 H RBC 3.13 L Hgb 8.5 L Hct 25.8 L MCV 82.4 MCH 27.2 MCHC 32.9 RDW 16.6 H Plt Count 323 MPV 8.6 L Immature Gran % (Auto) Cancelled Neut % (Auto) Cancelled Lymph % (Auto) Cancelled Spencer % (Auto) Cancelled Eos % (Auto) Cancelled Baso % (Auto) Cancelled Lymph # (Auto) Cancelled Spencer # (Auto) Cancelled Eos # (Auto) Cancelled Baso # (Auto) Cancelled Abs Immat Gran (auto) Cancelled Absolute Neuts (auto) Cancelled Absolute Nucleated RBC 0.000 Nucleated RBC % (auto) 0.0 Neutrophils % (Manual) 81 H Band Neutrophils % 6 H Lymphocytes % (Manual) 6 L Monocytes % (Manual) 4 Eosinophils % (Manual) 1 Metamyelocytes % 2 Abs Neuts (Manual) 16.5 H Lymphocytes # (Manual) 1.1 Monocytes # (Manual) 0.8 Eosinophils # (Manual) 0.2 Metamyelocytes # 0.4 Platelet Estimate NORMAL Plt Morphology Comment NORMAL RBC Morphology NOTED Hypochromasia 1+ (5-14) Ovalocytes 1+ (5-14) Acanthocytes (Spur) 1+ (0-2) Smear Path Review Sodium 137 Potassium 4.5 Chloride 106 Carbon Dioxide 25 Anion Gap 11 L BUN 37 H Creatinine 1.04 Estim Creat Clear Calc 84.9 Estimated GFR > 60 POC Glucose 197 H Random Glucose 175 H D Calcium 8.0 L Vancomycin Trough COVID-19 (KINGA) COVID-19 [employer] 02/03/21 02/03/21 02/03/21 07:20 11:03 11:41 WBC RBC Hgb Hct MCV MCH MCHC RDW Plt Count MPV Immature Gran % (Auto) Neut % (Auto) Lymph % (Auto) Spencer % (Auto) Eos % (Auto) Baso % (Auto) Lymph # (Auto) Spencer # (Auto) Eos # (Auto) Baso # (Auto) Abs Immat Gran (auto) Absolute Neuts (auto) Absolute Nucleated RBC Nucleated RBC % (auto) Neutrophils % (Manual) Band Neutrophils % Lymphocytes % (Manual) Monocytes % (Manual) Eosinophils % (Manual) Metamyelocytes % Abs Neuts (Manual) Lymphocytes # (Manual) Monocytes # (Manual) Eosinophils # (Manual) Metamyelocytes # Platelet Estimate Plt Morphology Comment RBC Morphology Hypochromasia Ovalocytes Acanthocytes (Spur) Smear Path Review Sodium Potassium Chloride Carbon Dioxide Anion Gap BUN Creatinine Estim Creat Clear Calc Estimated GFR POC Glucose 170 H 176 H Random Glucose Calcium Vancomycin Trough COVID-19 (KINGA) Negative COVID-19 Clin Com See Note Discharge Plan Discharge Patient Disposition: [facility] Discharge Diagnosis: Severe sepsis from Necrotizing fasciitis Acute renal failure Hyponatremia Referrals: Sunil Leong MD [Physician] - 1 Week Jovanny Osorio MD [Primary Care Provider] - 1 Week Discharge Medications: New furosemide 40 mg tablet 40 mg PO QAM Qty: 30 RF: 0 lisinopril 5 mg tablet 5 mg PO DAILY Qty: 30 RF: 0 Continued polyethylene glycol 3350 [Miralax] 17 gram Powder In Packet 17 g PO DAILY RF: 0 amiodarone 200 mg tablet 1 tab PO DAILY RF: 0 carvedilol [Coreg] 3.125 mg Tablet 3.125 mg PO BID RF: 0 carvedilol 3.125 mg tablet 1 tab PO BID RF: 0 oxycodone 5 mg Capsule 5 mg PO Q6H PRN (Reason: Pain (Scale Score 7-10)) RF: 0 ascorbic acid (vitamin C) [Vitamin C] 500 mg Capsule, Extended Release 500 mg PO DAILY RF: 0 insulin lispro [Humalog U-100 Insulin] 100 unit/mL Solution 4 unit SUBCUT TID RF: 0 Culturelle 10 billion cell Capsule 1 cap PO DAILY RF: 0 ferrous gluconate 324 mg (36 mg iron) Tablet 324 mg PO DAILY RF: 0 magnesium oxide 400 mg magnesium Capsule 400 mg PO DAILY RF: 0 Eliquis 5 mg Tablet 5 mg PO BID RF: 0 Changed Lantus Solostar U-100 Insulin 100 unit/mL (3 mL) insulin pen 16 unit subcut BEDTIME Qty: 0 RF: 0 Discharge Orders: Discharge Order (Routine); Ordered 02/03/21 Ordered By: Richard Souza Diet: advance to usual diet Activity on Discharge: As tolerated Stand Alone Forms: Patient Portal Discharge page Care Plan Goals: Read below Health Concerns: Read below Plan of Treatment: Treated for severe sepsis as a result of deep muscle infection in your legs. Treated with amputation of left lower extremity above the knee level. You were treated for heart failure with Lasix with good response. You had acute kidney injury and low sodium level which both were corrected back to normal. Assessment: Start Lasix 40 mg daily Start lisinopril 5 mg daily Increase your insulin Lantus to 16 units
--- NOTE | 2021-02-03 12:54 | MHC.CM.PN ---
PT CLEARED TO RETURN TO [facility] TODAY VIA BLS PENDING INSURANCE AUTH
[2021-02-03] MEDS: ondansetron HCL 4 MG/2 ML VIAL IVPUSH (15:34)
--- NOTE | 2021-02-03 15:41 | P.PNIM_ITS ---
Subjective Subjective Date of Service: 02/03/21 Interval History: the patient was seen and evaluated this morning Laying in bed, pain is better controlled today Denies any fever, chills or shortness of breath No reported other overnight events. Systemic review: No fever, chills but reports generalized weakness in feeling sleepy No chest pain, palpitation No shortness of breath or coughing No abdominal pain, nausea or vomiting No urinary symptoms No any rash or wounds Physical Exam Vital Signs: Vital Signs: Last Vital Signs Temp 98.7 F 02/03/21 11:23 Pulse 86 02/03/21 11:23 Resp 20 02/03/21 11:23 BP 105/63 02/03/21 15:37 Pulse Ox 96 02/03/21 11:23 Body Mass Index 27.6 Const: Other: Constitutional : Alert, oriented, not in distress Neck : Normal inspection, Supple Cardiovascular : RRR, S1 S2, no lower extremity edema Respiratory : Good bilateral air entry, no crackles, wheezes or rhonchi Gastrointestinal: soft, lax, Normal bowel sounds, Non tender Skin : Warm/Dry, No rash Skeletal : Left above knee amputation with clean stump and no drainage or erythema noted Neurological : Alert & oriented x3, No focal deficit Objective Data Current Medications Generic Name Dose Route Start Last Admin Trade Name Freq PRN Reason Stop Dose Admin Apixaban 5 mg 02/02/21 21:00 02/03/21 07:29 Apixaban 5 Mg Tablet PO 5 mg BID AKILA Administration Furosemide 40 mg 02/03/21 09:00 02/03/21 09:40 Furosemide 40 Mg/4 Ml Vial IVPUSH 40 mg DAILY AKILA Administration Protocol Hydromorphone HCl 0.5 mg 02/01/21 14:52 02/03/21 11:28 Hydromorphone Hcl 0.5 Mg/0.5 Ml Syringe IVPUSH 0.5 mg Q4H PRN Administration Pain, Severe (Pain Scale 7-10) Vancomycin HCl 1,250 mg/ 250 mls @ 166.667 mls/hr 01/31/21 20:00 02/02/21 22:29 Sodium Chloride IV Infused Q24H AKILA Infusion Piperacillin Sod/Tazobactam 50 mls @ 200 mls/hr 02/03/21 10:00 02/03/21 09:53 Sod 3.375 gm/ Sodium Chloride IV Not Given Q6H [facility] Insulin Glargine 18 unit 02/01/21 21:00 02/02/21 21:08 Insulin Glargine,Hum.Rec.Anlog 100 Unit/Ml 10 Ml Vial SUBCUT 18 unit BEDTIME AKILA Administration Insulin Glargine 10 unit 02/02/21 09:00 02/03/21 07:29 Insulin Glargine,Hum.Rec.Anlog 100 Unit/Ml 10 Ml Vial SUBCUT 10 unit DAILY AKILA Administration Insulin Human Lispro 0 unit 01/28/21 07:30 02/03/21 11:24 Insulin Lispro 100 Unit/Ml 3 Ml Vial SUBCUT 2 unit QIDACHS AKILA Administration Protocol Ondansetron HCl 4 mg 01/31/21 16:04 02/03/21 15:34 Ondansetron Hcl 4 Mg/2 Ml Vial IVPUSH 4 mg Q6H PRN Administration Nausea Pharmacy Consult 1 each 01/27/21 20:21 Consult Rx Vancomycin Dosing MISCELLANE DAILY PRN Consult order Labs CBC & Chem 7: 02/03/21 05:49 02/03/21 05:49 Microbiology Microbiology Results: Microbiology 01/31/21 Unknown Femur Left Gram Stain - Final 01/31/21 Unknown Femur Left Routine Culture - Final No growth after 2 days 01/27/21 20:32 Blood - Venous Blood Culture - Final No growth after 5 days. 01/27/21 20:19 Blood - Venous Blood Culture - Final No growth after 5 days. 01/30/21 00:00 Leg Left Gram Stain - Final 01/30/21 00:00 Leg Left Routine Culture - Final Assessment and Plan (1) Necrotizing fasciitis: Status: Acute (2) Acute renal failure: Status: Acute (3) Congestive cardiomyopathy: Status: Acute Assessment and Plan: 60-year-old gentleman with underlying history of diabetes mellitus, AFib on Eliquis, hypertension, cardiomyopathy, Tourette's, right TMA, left heel also admitted on 01/28 with sepsis with soft tissue source. Necrotizing fasciitis Status post left AKA Continue pain medications with Dilaudid as needed WBCs still elevated at 19,000 thousand Surgical team input appreciated, patient is ready to be placed Discontinue vancomycin and Zosyn Start doxycycline and Ceftin Negative cultures Start physical therapy Acute kidney injury Resolved Atrial fibrillation Restart Eliquis today Acute Congestive cardiomyopathy Low ejection fraction of 25-30% on echo with global hypokinesia Discontinue Lasix drip Continue Lasix IV Hyperglycemia diabetes Elevated glucose levels in 300 Add 10 units of Lantus in the morning Increase bedtime Lantus to 20 DVT PPX Eliquis (4) Atrial fibrillation with rapid ventricular response: Status: Acute (5) Hyponatremia: Status: Acute (6) Acute osteomyelitis of left ankle or foot: Status: Acute (7) Severe sepsis: Status: Acute
[2021-02-03] MEDS: Piperacillin Sodium/Tazobactam 3.375 GM in 0.9 % Sodium Chloride 50 ML IV (15:44)
[2021-02-03 16:18] LABS: Glucose, Whole Blood 148 mg/dL (60-115)
[2021-02-03 20:56] LABS: Glucose, Whole Blood 192 mg/dL (60-115)
[2021-02-03] MEDS: Doxycycline Hyclate 100 MG in 0.9 % Sodium Chloride 250 ML 166.67 MG IV (21:22)
[2021-02-03] MEDS: Insulin Glargine,Hum.rec.anlog 100 UNIT/ML 10 ML VIAL 18 UNIT SUBCUT (21:23)
[2021-02-04 04:00] VITALS: BP 124/72; PULSE 73; RESP 18; TEMP 37.1; O2SAT 92
[2021-02-04] MEDS: HYDROmorphone HCl 0.5 MG/0.5 ML SYRINGE IVPUSH ×3 (04:15→14:14)
[2021-02-04 07:00] LABS: Glucose, Whole Blood 137 mg/dL (60-115)
[2021-02-04 07:03] VITALS: BP 116/70; PULSE 81; RESP 18; TEMP 36.6; O2SAT 95
[2021-02-04 08:00] VITALS: BMI 27.1
[2021-02-04] MEDS: Doxycycline Hyclate 100 MG in 0.9 % Sodium Chloride 250 ML 166.67 MG IV (08:09)
[2021-02-04] MEDS: Apixaban 5 MG TABLET PO (08:09)
[2021-02-04] MEDS: Furosemide 40 MG/4 ML VIAL IVPUSH (08:10)
[2021-02-04] MEDS: Insulin Glargine,Hum.rec.anlog 100 UNIT/ML 10 ML VIAL 10 UNIT SUBCUT (08:13)
--- NOTE | 2021-02-04 08:14 | MHC.CM.PN ---
Patient will be dc today to [facility], via [facility] at 11 AM.
--- NOTE | 2021-02-04 10:41 | P.CONCA_ITS ---
History of Present Illness History of Present Illness Date of Service: 02/04/21 Requesting physician: Richard Souza Chief complaint: Cardiomyopathy Narrative: 60-year-old gentleman who was admitted at ICU at [facility] for severe sepsis. He has been transferred to the floor and we have been asked to see him for cardiomyopathy. It appears he had an echocardiogram while he was in the ICU which showed severely reduced ejection fraction. Discussing with the patient he does not recall having any history of cardiomyopathy but was on medications for cardiomyopathy. He is saying his only issue was atrial fibrillation in the past. He is denying shortness of breath or chest pain. He is saying he is feeling better. He was seeing a closet organizer in [place] previously and plans to see him again. He does not remember the name. [facility] Past Medical History Medical History (Updated 02/04/21 @ 12:10 by Jesse Sprague MD) Atrial fibrillation Cardiomyopathy Chronic wound of extremity Diabetic foot ulcer Hyperlipidemia Hypertension Iron deficiency anemia MRSA pneumonia Pleural empyema Tourette disease Surgical History Surgical History H/O chest tube placement History of amputation of right foot through metatarsal bone Social History Social History Housing: Senior Living Do you presently have visiting nurse or other home services: No Alcohol intake: unknown Patient Tobacco Use Status: Never used Tobacco Smoked in Last 30 Days: No Patient Interested in Nicotine Replacement: No Patient Given Instructions on How to Stop Smoking: No Second Hand Smoke Exposure: No Use of substances other than those prescribed or required for medical reasons: No Currently Displaying Signs/Symptoms of Drug Intoxication Withdrawal: No Have you been hit, kicked, punched, or otherwise hurt by someone within the past year? If so, by whom?: No Do you feel safe in your current relationship?: No Is there a partner from a previous relationship who is making you feel unsafe n ow?: No Advance Directives: No Advance Directives Information Provided: Yes Do you have thoughts of harming others: None Do you have a plan to hurt others: No Plan service: No Current occupational status: disabled Meds Allergies Allergy/AdvReac Type Severity Reaction Status Date / Time No Known Allergies Allergy Verified 01/27/21 19:59 Active Medications: Current Medications Generic Name Dose Route Start Last Admin Trade Name Freq PRN Reason Stop Dose Admin Apixaban 5 mg 02/02/21 21:00 02/04/21 08:09 Apixaban 5 Mg Tablet PO 5 mg BID AKILA Administration Cefuroxime Axetil 500 mg 02/03/21 20:00 02/04/21 08:09 Cefuroxime Axetil 500 Mg Tablet PO 500 mg Q12H AKILA Administration Furosemide 40 mg 02/03/21 09:00 02/04/21 08:10 Furosemide 40 Mg/4 Ml Vial IVPUSH 40 mg DAILY AKILA Administration Protocol Hydromorphone HCl 0.5 mg 02/01/21 14:52 02/04/21 08:17 Hydromorphone Hcl 0.5 Mg/0.5 Ml Syringe IVPUSH 0.5 mg Q4H PRN Administration Pain, Severe (Pain Scale 7-10) Doxycycline Hyclate 100 mg/ 250 mls @ 166.67 mls/hr 02/03/21 20:00 02/04/21 10:04 Sodium Chloride IV Infused Q12H [facility] Infusion Insulin Glargine 18 unit 02/01/21 21:00 02/03/21 21:23 Insulin Glargine,Hum.Rec.Anlog 100 Unit/Ml 10 Ml Vial SUBCUT 18 unit BEDTIME AKILA Administration Insulin Glargine 10 unit 02/02/21 09:00 02/04/21 08:13 Insulin Glargine,Hum.Rec.Anlog 100 Unit/Ml 10 Ml Vial SUBCUT 10 unit DAILY [facility] Administration Insulin Human Lispro 0 unit 01/28/21 07:30 02/04/21 07:16 Insulin Lispro 100 Unit/Ml 3 Ml Vial SUBCUT Not Given QIDACHS [facility] Protocol Ondansetron HCl 4 mg 01/31/21 16:04 02/03/21 15:34 Ondansetron Hcl 4 Mg/2 Ml Vial IVPUSH 4 mg Q6H PRN Administration Nausea Home Medications Medication Instructions Recorded Confirmed Last Taken Type Culturelle 1 cap PO DAILY 01/28/21 01/28/21 01/27/21 History Eliquis 5 mg PO BID 01/28/21 01/28/21 01/27/21 History amiodarone 1 tab PO DAILY 01/28/21 01/28/21 01/27/21 History ascorbic acid (vitamin C) [Vitamin 500 mg PO DAILY 01/28/21 01/28/21 01/27/21 History C] carvedilol 1 tab PO BID 01/28/21 01/28/21 01/27/21 History carvedilol [Coreg] 3.125 mg PO BID 01/28/21 01/28/21 01/27/21 History ferrous gluconate 324 mg PO DAILY 01/28/21 01/28/21 01/28/21 History insulin lispro [Humalog U-100 4 unit SUBCUT TID 01/28/21 01/28/21 Unknown History Insulin] magnesium oxide 400 mg PO DAILY 01/28/21 01/28/21 01/27/21 History oxycodone 5 mg PO Q6H PRN 01/28/21 01/28/21 01/27/21 History polyethylene glycol 3350 [Miralax] 17 g PO DAILY 01/28/21 01/28/21 01/27/21 History Physical Exam Vital Signs: Vital Signs: Last Vital Signs Temp 97.8 F 02/04/21 07:03 Pulse 81 02/04/21 07:03 Resp 18 02/04/21 07:03 BP 116/70 02/04/21 07:03 Pulse Ox 95 02/04/21 07:03 Body Mass Index 27.1 GENERAL APPEARANCE: in no acute distress, pleasant. SKIN: no suspicious lesions, warm and dry. Left above-knee amputation in dressing. HEART: no murmurs, regular rate and rhythm. LUNGS: clear to auscultation bilaterally. ABDOMEN: soft, nontender. EXTREMITIES: no edema. Left above-knee amputation. NEUROLOGIC: No gross deficits, AAO X 3 Results Labs and Meds Result diagrams: 02/03/21 05:49 02/03/21 05:49 Lab results: Laboratory Results - last 24 hr 02/03/21 02/03/21 02/03/21 11:03 11:41 16:13 POC Glucose 176 H 148 H COVID-19 (KINGA) Negative COVID-19 Clin Com See Note 02/03/21 02/04/21 20:17 06:55 POC Glucose 192 H 137 H COVID-19 (KINGA) COVID-19 Clin Com Assessment and Plan (1) Cardiomyopathy: Status: Inactive 52-year-old gentleman was admitted with severe sepsis and echocardiography performed in ICU showed severe cardiomyopathy. He is clinically compensated and not in heart failure. He follows with closet organizer in [place]. He is already on carvedilol and lisinopril which should be continued as before. He has known atrial fibrillation and was previously on anticoagulation and amiodarone. I think right now he is clini tosin stable and can have further workup with his primary closet organizer in [place]. Thank you for allowing me to participate in the care of your patient. Please feel free to contact me if you have any questions. Procedures Date of Service Date of Service: 02/04/21
[2021-02-04 11:03] LABS: Glucose, Whole Blood 232 mg/dL (60-115)
[2021-02-04 11:06] VITALS: BP 100/57; PULSE 81; RESP 18; TEMP 36.6; O2SAT 97
[2021-02-04] MEDS: Insulin Lispro 100 UNIT/ML 3 ML VIAL SUBCUT (11:36)
--- NOTE | 2021-02-04 14:46 | PM.PNGS ---
Subjective Subjective Date of Service: 02/04/21 Interval history: Patient is status post left above knee amputation for necrotizing fasciitis. Patient feels well, pain is well controlled. Patient reports he is being discharged to rehab today. Physical Exam Vital Signs: Vital Signs: Last Vital Signs Temp 97.8 F 02/04/21 11:06 Pulse 81 02/04/21 11:06 Resp 18 02/04/21 11:06 BP 100/57 L 02/04/21 11:06 Pulse Ox 97 02/04/21 11:06 Body Mass Index 27.1 Const: General: cooperative, healthy appearing, comfortable and no acute distress Extrem: Other: The left above knee amputation site covered with Neftali wrap. No evidence of erythema on surrounding skin. Progress Note: A&P Assessment and plan (1) Status post above-knee amputation of left lower extremity: Status: Acute Assessment and Plan: Patient doing well status post left above knee amputation. Patient will be discharged to rehab. Patient should follow up with Dr. Leong as an outpatient. Fall Risk Details Current Medications: Current Medications Generic Name Dose Route Start Last Admin Trade Name Freq PRN Reason Stop Dose Admin Apixaban 5 mg 02/02/21 21:00 02/04/21 08:09 Apixaban 5 Mg Tablet PO 5 mg BID AKILA Administration Cefuroxime Axetil 500 mg 02/03/21 20:00 02/04/21 08:09 Cefuroxime Axetil 500 Mg Tablet PO 500 mg Q12H AKILA Administration Furosemide 40 mg 02/03/21 09:00 02/04/21 08:10 Furosemide 40 Mg/4 Ml Vial IVPUSH 40 mg DAILY AKILA Administration Protocol Hydromorphone HCl 0.5 mg 02/01/21 14:52 02/04/21 14:14 Hydromorphone Hcl 0.5 Mg/0.5 Ml Syringe IVPUSH 0.5 mg Q4H PRN Administration Pain, Severe (Pain Scale 7-10) Doxycycline Hyclate 100 mg/ 250 mls @ 166.67 mls/hr 02/03/21 20:00 02/04/21 10:04 Sodium Chloride IV Infused Q12H AKILA Infusion Insulin Glargine 18 unit 02/01/21 21:00 02/03/21 21:23 Insulin Glargine,Hum.Rec.Anlog 100 Unit/Ml 10 Ml Vial SUBCUT 18 unit BEDTIME AKILA Administration Insulin Glargine 10 unit 02/02/21 09:00 02/04/21 08:13 Insulin Glargine,Hum.Rec.Anlog 100 Unit/Ml 10 Ml Vial SUBCUT 10 unit DAILY AKILA Administration Insulin Human Lispro 0 unit 01/28/21 07:30 02/04/21 11:36 Insulin Lispro 100 Unit/Ml 3 Ml Vial SUBCUT 4 unit QIDACHS AKILA Administration Protocol Ondansetron HCl 4 mg 01/31/21 16:04 02/03/21 15:34 Ondansetron Hcl 4 Mg/2 Ml Vial IVPUSH 4 mg Q6H PRN Administration Nausea Time Spent With Patient Time: Total time spent is greater than 50% in coordination of care (as documented) at patient's floor/unit and/or counseling patient: Time with patient: less than 15 minutes Procedures Date of Service Date of Service: 02/04/21
== END 2021-02-04 16:15 | disposition skilled nursing facility (03) | DRG 853 ==
LOC: HO.ED 20:31 → HO.ICU 01-28 00:32 → HO.IMC 02-01 08:51
PROVIDERS: Internal Medicine Cardiovascular Disease; Internal Medicine Pulmonary Disease; Surgery; Admitting Provider Physician Assistant; Emergency Provider Internal Medicine; PCP Family Medicine; Visit Provider Student in an Organized Health Care Education/Training Program
PROC: 0JBP0ZZ Excision of Left Lower Leg Subcutaneous Tissue and Fascia, Open Approach (ICD-10-PCS; principal; 2021-01-30 10:15)
PROC: 0Y6D0Z2 Detachment at Left Upper Leg, Mid, Open Approach (ICD-10-PCS; principal; 2021-01-31 13:00)
DX: A41.9 Sepsis, unspecified organism (principal); M72.6 Necrotizing fasciitis; E87.1 Hypo-osmolality and hyponatremia; M86.172 Other acute osteomyelitis, left ankle and foot; L97.429 Non-pressure chronic ulcer of left heel and midfoot with unspecified severity; I42.0 Dilated cardiomyopathy; N17.9 Acute kidney failure, unspecified; D62 Acute posthemorrhagic anemia; E78.5 Hyperlipidemia, unspecified; E11.65 Type 2 diabetes mellitus with hyperglycemia; F95.2 Tourette's disorder; R65.20 Severe sepsis without septic shock; E11.69 Type 2 diabetes mellitus with other specified complication; E11.621 Type 2 diabetes mellitus with foot ulcer; E11.51 Type 2 diabetes mellitus with diabetic peripheral angiopathy without gangrene; I48.91 Unspecified atrial fibrillation; Z20.822 Contact with and (suspected) exposure to COVID-19; Z79.4 Long term (current) use of insulin; Z79.01 Long term (current) use of anticoagulants; Z79.891 Long term (current) use of opiate analgesic; Z79.899 Other long term (current) drug therapy
CPT/HCPCS: 36415; 71045; 73650; 80048; 80053; 80076; 80202; 81001; 82040; 82947; 83605; 83735; 83880; 84100; 85007; 85025; 85027; 85610; 85730; 86850; 86900; 86901; 86923; 87040; 87071; 87205; 87635; 88307; 88311; 93005; 93306; 97162; 99024; 99285; C1758; J0330; J0690; J1100; J1160; J1170; J1265; J1940; J2250; J2270; J2370; J2405; J2543; J3010; J3370; J3475; P9016; P9047

== ENCOUNTER → 2021-02-09 12:45 | Outpatient (BNVA) | payer OTHER, MEDICAID, SELFPAY | PROVIDERS: PCP Family Medicine; Visit Provider Surgery ==

== ENCOUNTER → 2021-02-13 14:20 | Outpatient (BNVA) | payer OTHER, MEDICAID, SELFPAY | PROVIDERS: PCP Family Medicine; Visit Provider Surgery ==

== ENCOUNTER → 2021-02-28 13:23 | Outpatient (BNVA) | payer OTHER, MEDICAID, SELFPAY | PROVIDERS: PCP Internal Medicine; Visit Provider Surgery ==

== ENCOUNTER → 2021-03-28 10:55 | Outpatient (BNVA) | payer OTHER, SELFPAY | PROVIDERS: PCP Family Medicine; Referring Provider Family Medicine; Visit Provider Surgery ==

== ENCOUNTER 2021-05-29 09:34 | Emergency (ER) | payer OTHER, MEDICAID, SELFPAY ==
--- NOTE | ~2021-05-29 | XR_ITS ---
EXAMINATION: XR FEMUR, LEFT CLINICAL INFORMATION: Fall. Blunt bleeding of the stump site. COMPARISON: Left femur 03/15/2021 TECHNIQUE: AP and lateral views of the left femur were obtained. FINDINGS: There is a left distal femoral amputation with the stump site appearing unremarkable. No fracture or soft tissue swelling seen. XR/XR femur LT 2V IMPRESSION: Unremarkable distal left femoral amputation site and the stump. No soft tissue swelling or fracture seen.
[2021-05-29 09:59] VITALS: BP 130/84; PULSE 78; RESP 20; O2SAT 97; BMI 30.5
--- NOTE | 2021-05-29 10:36 | ED_ITS ---
HPI - Wound/Laceration General Chief Complaint: Wound/Laceration Stated Complaint: WOUND CHECK Time Seen by Provider: 05/29/21 09:59 Source: patient Mode of arrival: ambulatory Limitations: no limitations History of Present Illness HPI narrative: Patient presents to ED for open nonhealing wound on left stump from AKA. Patient states this morning he was on his walker with a wheal and he slipped and landed on the left AKA stump and the closed wound than opened with bleeding. Patient denies falling to the ground or hitting head or loss of consciousness. Patient not any blood thinner. Patient knee recently got off the wound VAC 3 weeks ago. Related Data Home Medications Medication Instructions Recorded Confirmed Lactobacillus rhamnosus GG 10 1 cap PO DAILY 01/28/21 03/28/21 billion cell capsule (Culturelle) amiodarone 200 mg tablet 1 tab PO DAILY 01/28/21 03/28/21 apixaban 5 mg tablet (Eliquis) 5 mg PO BID 01/28/21 03/28/21 ascorbic acid (vitamin C) 500 mg 500 mg PO DAILY 01/28/21 03/28/21 capsule,extended release (Vitamin C) carvedilol 3.125 mg tablet 1 tab PO BID 01/28/21 03/28/21 ferrous gluconate 324 mg (36 mg 324 mg PO DAILY 01/28/21 03/28/21 iron) tablet insulin lispro 100 unit/mL 4 unit SUBCUT TID 01/28/21 03/28/21 subcutaneous solution (Humalog U-100 Insulin) magnesium oxide 400 mg PO DAILY 01/28/21 03/28/21 oxycodone 5 mg capsule 5 mg PO Q6H PRN 01/28/21 03/28/21 polyethylene glycol 3350 17 gram 17 g PO DAILY 01/28/21 03/28/21 oral powder packet (Miralax) acetaminophen 325 mg capsule 650 mg PO Q6H PRN 02/28/21 03/28/21 bisacodyl 10 mg rectal suppository 10 mg MO DAILY PRN 02/28/21 03/28/21 glucagon 1 mg/mL solution for 1 mg SUBCUT Q20M PRN 02/28/21 03/28/21 injection cholecalciferol (vitamin D3) 25 25 mcg PO DAILY 03/28/21 03/28/21 mcg (1,000 unit) capsule dextrose 15 gram/32 mL oral gel g PO 03/28/21 03/28/21 packet (TRUEplus Glucose) doxycycline monohydrate 100 mg 100 mg PO BID 03/28/21 03/28/21 capsule Previous Rx's Medication Instructions Recorded furosemide 40 mg tablet 40 mg PO QAM #30 tab 02/03/21 insulin glargine 100 unit/mL (3 16 unit SUBCUT BEDTIME #0 ml 02/03/21 mL) subcutaneous pen (Lantus Solostar U-100 Insulin) lisinopril 5 mg tablet 5 mg PO DAILY #30 tab 02/03/21 Allergies Allergy/AdvReac Type Severity Reaction Status Date / Time No Known Allergies Allergy Verified 02/13/21 14:30 Review of Systems Review of Systems: Yes all other systems are reviewed and are negative Constitutional: Constitutional: Reports as per HPI and Reports no additional constitutional complaints Eyes: Eyes: Reports as per HPI and Reports no additional eye complaints ENT: Reports system reviewed and no additional complaints, except as do cumented and Reports as per HPI Cardiovascular: Cardiovascular: Reports as per HPI and Reports no additional cardiovascular complaints Respiratory: Respiratory: Reports as per HPI and Reports no additional respiratory complaints Gastrointestinal: Gastrointestinal: Reports as per HPI and Reports no additional gastrointestinal complaints Genitourinary: Genitourinary: Reports no additional male genitourinary complaints and Reports as per HPI Musculoskeletal: Musculoskeletal: Reports no additional musculoskeletal complaints and Reports as per HPI Comments: Left stump wound open Neurologic: Reports system reviewed and no additional complaints, except as documented and Reports as per HPI Psychiatric: Psychiatric: Reports no additional psychiatric complaints and Reports as per HPI [facility] Past Medical History Medical History Atrial fibrillation Cardiomyopathy Chronic wound of extremity Congestive cardiomyopathy Diabetes mellitus Diabetic foot ulcer Hyperlipidemia Hypertension Iron deficiency anemia MRSA pneumonia Pleural empyema Tourette disease Surgical History H/O chest tube placement History of amputation of right foot through metatarsal bone Social History Social History Housing: Senior Living Do you presently have visiting nurse or other home services: No Alcohol intake: unknown Patient Tobacco Use Status: Never used Tobacco Second Hand Smoke Exposure: No Advance Directives: No Advance Directives Information Provided: No service: No Current occupational status: disabled Physical Exam Vital Signs: Vital Signs: Last Vital Signs Pulse 78 05/29/21 09:59 Resp 20 05/29/21 09:59 BP 130/84 05/29/21 09:59 Pulse Ox 97 05/29/21 09:59 Body Mass Index 30.5 Const: General: cooperative, healthy appearing, comfortable, no acute distress, well developed, alert, awake and Physically active Orientation/consciousness: patient oriented x3 HENMT: Head: Yes normal to inspection, Yes No palpable skull fracture present, Yes normocephalic and Yes atraumatic Eyes: General: appearance normal, both eyes and all related structures Neck: Neck: Yes normal visual inspection, Yes full ROM, Yes no lymphadenopathy, Yes no meningeal signs, Yes trachea midline, Yes supple and No tender Chest: Chest palpation & inspection: normal inspection of the chest and normal palpation of entire chest wall Resp: Effort & Inspection: normal respiratory effort and able to speak in complete sentences Auscultation: clear to auscultation bilaterally Cardio: Jugular venous distension: no JVD Heart sounds: S1 normal heart sound present and S2 normal heart sound present GI: Inspection: Yes normal to inspection and No abdominal wall ecchymosis Palpation (GI): Soft to palpation, not firm, nontender, no guarding and not rigid : General: No CVA tenderness and Yes no CVA tenderness Back/Spine/Pelvis: Back: no CVA tenderness, No CVA tenderness and No back tenderness Skin: General skin exam: no rashes or lesions noted and elasticity normal Neuro: General: patient oriented x3, gait normal, no meningeal signs and CN's II-XI intact bilaterally Cranial nerves: Yes CN's II-XII intact bilaterally Extrem: Other: General: Yes normal to inspection Course Course Course Narrative: No indication for head CT. Patient denies any head trauma. Patient up-to-date with tetanus. Reevaluation(s) Reevaluation #1: Dr. Junior evaluated wound and does not recommend closure. She states she should be discussed with Dr. Leong. Time: 10:30 Reevaluation #2: Dr. Leong came and evaluated patient and does not recommend wound closure/suture repair. Recommends just placing silver aliginate on wound. He recommend follow-up with wound clinic Time: 12:01 MDM - Wound/Laceration MDM Narrative Medical decision making narrative: Chronic wound Shravan laceration not repaired Discharge Plan Discharge Clinical Impression: Chronic wound of extremity, Laceration Patient Disposition: Home, Self-Care Instructions: Laceration Without Closure (ED), Chronic Wounds (ED) Additional Instructions: You were evaluated by Dr. Leong the surgeon who does not recommend closure of wound. Recommends follow-up with wound clinic. Return to the ED for pus discharge, foul odor, fever, chills, redness, or any other concerning symptoms. Prescriptions: No Action polyethylene glycol 3350 [Miralax] 17 gram Powder In Packet 17 g PO DAILY RF: 0 amiodarone 200 mg tablet 1 tab PO DAILY RF: 0 carvedilol 3.125 mg tablet 1 tab PO BID RF: 0 oxycodone 5 mg Capsule 5 mg PO Q6H PRN (Reason: Pain (Scale Score 7-10)) RF: 0 ascorbic acid (vitamin C) [Vitamin C] 500 mg Capsule, Extended Release 500 mg PO DAILY RF: 0 insulin lispro [Humalog U-100 Insulin] 100 unit/mL Solution 4 unit SUBCUT TID RF: 0 Culturelle 10 billion cell Capsule 1 cap PO DAILY RF: 0 ferrous gluconate 324 mg (36 mg iron) Tablet 324 mg PO DAILY RF: 0 magnesium oxide 400 mg magnesium Capsule 400 mg PO DAILY RF: 0 Eliquis 5 mg Tablet 5 mg PO BID RF: 0 furosemide 40 mg tablet 40 mg PO QAM Qty: 30 RF: 0 lisinopril 5 mg tablet 5 mg PO DAILY Qty: 30 RF: 0 Lantus Solostar U-100 Insulin 100 unit/mL (3 mL) insulin pen 16 unit subcut BEDTIME Qty: 0 RF: 0 glucagon 1 mg/mL recon soln 1 mg subcut Q20M PRNRF: 0 acetaminophen 325 mg capsule 650 mg PO Q6H PRNRF: 0 bisacodyl 10 mg suppository 10 mg MO DAILY PRNRF: 0 cholecalciferol (vitamin D3) 25 mcg (1,000 unit) capsule 25 mcg PO DAILY RF: 0 TRUEplus Glucose 15 gram/32 mL gel in packet PO RF: 0 doxycycline monohydrate 100 mg capsule 100 mg PO BID RF: 0 Referrals: Naomy Rivera PA [[facility]] - 2 days (Left chronic wound open after fall. Surgery does not recommend closure. Recommends follow-up with wound clinic.) Interventions: ED Discharge Assessment Last Done: 05/29/21 12:22 Discharge Date/Time: 05/29/21 12:22 Print Language: Vietnamese
--- NOTE | 2021-05-29 12:20 | PC.NURSE ---
silver alginate dressing placed on wound site, reinforced w bulky gauze and anderson wrap. pt tolerated procedure well, sts dressing does not feel too tight on bka.
== END 2021-05-29 12:22 | disposition home or self-care (01) ==
PROVIDERS: Emergency Provider Emergency Medicine; PCP Internal Medicine
DX: S88.012A Complete traumatic amputation at knee level, left lower leg, initial encounter (principal); W01.0XXA Fall on same level from slipping, tripping and stumbling without subsequent striking against object, initial encounter; Y93.9 Activity, unspecified; Y92.009 Unspecified place in unspecified non-institutional (private) residence as the place of occurrence of the external cause; Y99.9 Unspecified external cause status; Z48.00 Encounter for change or removal of nonsurgical wound dressing; Z79.899 Other long term (current) drug therapy; Z79.01 Long term (current) use of anticoagulants
CPT/HCPCS: 73552; 99282; 99283

== ENCOUNTER 2021-08-22 12:37 | Outpatient (REF) | payer OTHER, MEDICAID, SELFPAY ==
--- NOTE | ~2021-08-22 | MR_ITS ---
EXAMINATION: MR OF THE FOOT WITHOUT AND WITH CONTRAST, RIGHT CLINICAL INFORMATION: Nonhealing foot wound. Evaluate for osteomyelitis. COMPARISON: Persistent wound following toe amputation 1 year ago. Pain and swelling. Evaluate for osteomyelitis. TECHNIQUE: Most recent right foot radiographs dated 07/10/2021. FINDINGS: BONE: Redemonstration of transmetatarsal amputations, similar when compared to the prior radiographs. Within the distal aspect of the amputated 1st and 2nd metatarsals, there is mild increased T1 signal and decreased T2 signal with minimal postcontrast enhancement and vague plantar cortical erosion. Findings are concerning for acute osteomyelitis. No additional abnormal marrow signal. Intact articular cartilage. No talar osteochondral lesion. MUSCLES/TENDONS: The visualized flexor and extensor tendons are grossly intact. Diffuse muscle atrophy. LIGAMENTS: The Lisfranc ligament is intact. SOFT TISSUES: Soft tissue edema and postcontrast enhancement along the distal aspect of the transmetatarsal amputations, consistent with cellulitis. No organized fluid collection/abscess formation. MR/MR foot RT wo/w con IMPRESSION: Transmetatarsal amputations with distal cellulitis. No evidence of abscess formation. Mild edema and enhancement within the inferior aspect of the distal 1st and 2nd metatarsals, consistent with early osteomyelitis.
== END 2021-08-22 12:38 | disposition home or self-care (01) ==
LOC: HO.MRI 12:37
PROVIDERS: Visit Provider Physician Assistant
DX: E11.621 Type 2 diabetes mellitus with foot ulcer (principal)
CPT/HCPCS: 73720; A9585

== ENCOUNTER → 2021-09-05 11:02 | Outpatient (BNVA) | payer OTHER, MEDICAID, SELFPAY | PROVIDERS: PCP Internal Medicine; Visit Provider Internal Medicine ==

== ENCOUNTER 2021-10-13 12:42 | Outpatient (REF) | payer OTHER, MEDICAID, SELFPAY ==
--- NOTE | 2021-10-13 12:48 | CA_ITS ---
Transthoracic Echocardiogram Patient (Last, First, Middle): Jelani Beltran, Gender: Male Date of : 1960 Age: 61 Procedure Date: 10/13/2021 Procedure Type: Transthoracic Echocardiogram Location: OP Height: 182.88 cm Weight: 83.92 kg BSA: 2.06 m2 Heart Rate: bpm BP: 120 / 80 mmHg Cigar Roller: Referring MD: Naomy PAZ Symptoms: CHF H/O OF LOW EF Study Quality: Fair ECG Rhythm: Sinus Conclusions: - Mildly increased left ventricular cavity size. There is normal left ventricular wall thickness. The left ventricular systolic function is moderate to severely decreased. The visually estimated ejection fraction is between 25-30%. - Mildly increased right ventricular cavity size. There is normal right ventricular systolic function. Findings Left Ventricle Mildly increased left ventricular cavity size. There is normal left ventricular wall thickness. The left ventricular systolic function is moderate to severely decreased. The visually estimated ejection fraction is between 25-30%. There is moderate global hypokinesis. Abnormal diastolic function is noted. Spectral Doppler is indicative of a restrictive filling pattern. Elevated filling pressures. Right Ventricle Mildly increased right ventricular cavity size. There is normal right ventricular systolic function. Atria The left atrium is moderately dilated. Aortic Valve Normal aortic valve structure and function. There is no aortic valve stenosis. There is no aortic valve regurgitation. Mitral Valve The mitral valve appears normal. There is mild mitral valve regurgitation. There is no mitral valve stenosis. Pulmonic Valve Normal pulmonic valve structure and function. There is trace pulmonic valve regurgitation. Tricuspid Valve Normal tricuspid valve structure and function. There is trace tricuspid valve regurgitation. Tricuspid regurgitation envelope is inadequate for calculation of right ventricular systolic pressure. Moderately elevated right atrial pressure. Great Vessels All visible segments of the aorta are normal in size. The visualized portions of the pulmonary artery and branches are normal. Venous The inferior vena cava is dilated and collapses greater than 50% with inspiration. Pericardium/Pleural There is no evidence of pericardial effusion. Prior Study Comparison Changes noted compared to prior study dated: 01/31/2021. LV is mildly dilated. RV is mildly dilated Measurements 2D Linear Measurements IVSd: 1.09 0.6-0.9/0.6-1.0 cm LVIDd: 6.20 3.9-5.3/4.2-5.9 cm LVIDd Index: 3.01 2.4-3.2/2.2-3.1 cm/m2 LVIDs: 5.28 2.0-3.6 cm LVPWd: 1.05 0.7-1.1 cm Ao Root: 3.40 2.1-3.5 cm LA Diam: 4.40 2.7-3.8/3.0-4.0 cm LAIDs Index: 2.14 1.5-2.3 cm/m2 LV Mass: 355.44 67-162/88-224 g LV Mass Index: 172.54 43-95/49-115 g/m2 LVOT Diam: 2.30 3.0+(-)1.3 cm 2D Systolic Function EF 4C: 28.90 >55% EF 2C: 31.60 >55% EF BiP: 30.20 >55% Mitral Valve MV Pk E: 0.83 MV PK A: 0.42 MV Decel Time: 142.00 E/A: 2.00 E'Lateral: 6.20 E'Medial: 3.81 E/E' Med: 21.80 E/E' Lat: 13.40 PHT: 42.00 MVA PHT: 5.24 Decel Norman: 5.84 Aortic Valve AoV Pk Aroldo: 0.94 AoV Mn Aroldo: 0.60 AoV VTI: 0.19 AoV Pk Grad: 4.00 Aov Mn Grad: 2.00 MOHINI Cont.VTI: 3.56 LVOT LVOT Pk Aroldo: 0.64 LVOT Mn Aroldo: 0.47 LVOT VTI: 0.16 LVOT Pk Grad: 2.00 LVOT Mn Grad: 1.00 LVOT Diam: 2.30 LVOT Area: 4.15 Diastolic Function MV Pk E: 0.83 MV Pk A: 0.42 E/A: 2.00 E'Medial: 3.81 E/E' Med: 21.80 E' Laterial: 6.20 E/E' Lat: 13.40 Tricuspid Valve TR Pk Aroldo: 2.82 TR Pk Grad: 32.00 Great Vessels Aorta Ao Root-2D: 3.40 2.0-3.7 cm Ao Asc: 3.30 2.1-3.4 cm Pulmonary Valve PV Pk Aroldo: 0.63 Peak PV Grad: 2.00 Updated in Other Vendor System with Status of Final Jesse Sprague MD electronically signed on 10/14/2021 7:23:31 PM with status of Final
== END 2021-10-13 23:59 | disposition home or self-care (01) ==
LOC: HO.CARD 12:42
PROVIDERS: Visit Provider Physician Assistant
DX: M72.6 Necrotizing fasciitis (principal); I50.20 Unspecified systolic (congestive) heart failure
CPT/HCPCS: 15275; 93306; Q4187

== ENCOUNTER 2022-08-16 07:59 | Outpatient (RCR) | payer OTHER, MEDICAID, SELFPAY | END 2022-10-11 16:00 | disposition home or self-care (01) | LOC: HO.WCC 07:59 | PROVIDERS: PCP Internal Medicine; Visit Provider Surgery | DX: E11.621 Type 2 diabetes mellitus with foot ulcer (principal); L97.412 Non-pressure chronic ulcer of right heel and midfoot with fat layer exposed; I10 Essential (primary) hypertension; Z87.891 Personal history of nicotine dependence | CPT/HCPCS: 11042 ==